=== PATIENT | male | born 1950 | race Caucasian/White ===

== ENCOUNTER 2017-04-09 19:49 | Emergency (ER) | payer MEDICARE, OTHER ==
[~2017-04-09] VITALS: Ht 180.3 cm; Wt 90.7 kg
[~2017-04-09 19:49] MED LIST: ASPI-999 PO; DIGO125T91 PO; DIGO250T15 PO; ERGO50006 PO; GABA-488 PO; HYDR-3812 PO; INSU100V16 SQ; INSU100V6 SC; LEVO25TA5 PO; LISI5TAB14 PO; METO-333 PO; NIAC10002 PO; OMEP20CA12 PO; OMG1KC PO; PANT40TA3 PO; PRAV10TA23 PO; RIVA20TA PO; TRAZ-28 PO
--- NOTE | 2017-04-09 20:49 | ED Lower Extremity ---
General Chief Complaint: Lower Extremity Stated Complaint: LT LEG PAIN HX OF BLOOD CLOTS Nursing Triage Note: PT CO OF L KNEE TO HIP PAIN STATES STARTED AT 1900 THIS EVENING, PT HAS HX OF BLOOD CLOTS Nursing Sepsis Screen: No Definite Risk Source: patient Exam Limitations: no limitations (NINFA YUSUF APRN) History of Present Illness Time seen by provider: 20:47 Initial Comments To ER with pain to the lateral aspect of left thigh from the hip to the knee. This began about 730 this evening when he was walking here to the hospital to visit friend. Upon walking until the hospital he developed this pain. Pain is worsened by movement. 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 He remains on xarelto Onset: just prior to arrival Severity: moderate Pain/Injury Location: left leg Modifying Factors: Worse With Movement (NINFA YUSUF APRN) Allergies and Home Medications Allergies Coded Allergies: morphine (Verified Allergy, Intermediate, SEVERE ITCHING, 08/15/15) peach (Unverified Allergy, Unknown, 08/14/15) Uncoded Allergies: contrex (Allergy, Unknown, 08/14/15) Home Medications Aspirin 81 Mg Tab.chew, 81 MG PO DAILY, #30 Prescribed by: TIMOTHY VOGT on 08/30/15 1655 Digoxin 250 Mcg Tablet, 0.25 MG PO HS, #30 Prescribed by: TIMOTHY VOGT on 08/30/15 1655 Ergocalciferol (Vitamin D2) 50,000 Unit Capsule, 50,000 UNITS PO We@09, #30 Prescribed by: TIMOTHY VOGT on 08/30/15 165 Gabapentin 300 Mg Capsule, 600 MG PO TID, (Reported) Insulin Aspart 100 Unit/1 Ml Susp, 0 UNIT SQ, (Reported) Insulin Glargine,Hum.rec.anlog 100 Unit/1 Ml Vial, 30 UNIT SC BID, (Reported) Levothyroxine Sodium 25 Mcg Tablet, 25 MCG PO DAILY@0630, #30 Prescribed by: TIMOTHY VOGT on 08/30/15 1655 Lisinopril 5 Mg Tablet, 5 MG PO DAILY, (Reported) Metoprolol Tartrate 25 Mg Tablet, 25 MG PO BID, #30 Prescribed by: TIMOTHY VOGT on 12/10/15 1655 [place] 3 Polyunsat Fatty Acids 1,000 Mg Cap, 1,000 MG PO HS, #30 Prescribed by: TIMOTHY VOGT on 08/30/151654 [place] 3 Polyunsat Fatty Acids 1,000 Mg Cap, 2,000 MG PO DAILY, #60 Prescribed by: TIMOTHY VOGT on 08/30/151654 Omeprazole 20 Mg Capsule.dr, 20 MG PO BID, (Reported) Pravastatin Sodium 10 Mg Tablet, 10 MG PO, (Reported) Rivaroxaban 20 Mg Tablet, 20 MG PO DAILY@1700, #30 Prescribed by: TIMOTHY VOGT on 08/30/151654 Trazodone HCl 50 Mg Tablet, 50 MG PO HS, #30 Prescribed by: TIMOTHY VOGT on 08/30/151654 Constitutional: see HPI EENTM: see HPI Respiratory: no symptoms reported Cardiovascular: no symptoms reported Genitourinary: no symptoms reported Musculoskeletal: see HPI Skin: no symptoms reported Psychiatric/Neurological: No Symptoms Reported (NINFA YUSUF APRN) Past Gxyhrfe-Kpxqwn-Wowqcy Hx Patient Social History Alcohol Use: Denies Use Recreational Drug Use: No Smoking Status: Current Someday Smoker Type Used: Cigarettes Recent Foreign Travel: No Contact w/Someone Who Travel: No Recent Infectious Disease Expo: No Recent Hopitalizations: Yes (NINFA YUSUF APRN) Immunizations Up To Date Tetanus Booster (TDap): Unknown Date of Pneumonia Vaccine: Aug 30, 2015 Date of Influenza Vaccine: Jul 27, 2015 (NINFA YUSUF APRN) Seasonal Allergies Seasonal Allergies: No (NINFA YUSUF APRN) Surgeries HX Surgeries: Yes Surgeries: Cardiac, CABG, Coronary Stent, Open Heart Surgery, Vascular Surgery (NINFA YUSUF APRN) Respiratory Hx Respiratory Disorders: Yes Respiratory Disorders: COPD, Emphysema (NINFA YUSUF APRN) Cardiovascular Hx Cardiac Disorders: Yes Cardiac Disorders: Coronary Artery Disease, Heart Attack, High Cholesterol, Hypertension, Peripheral Vascular (NINFA YUSUF APRN) Neurological Hx Neurological Disorders: Yes Neurological Disorders: Neuropathy (NINFA YUSUF APRN) Reproductive System Hx Reproductive Disorders: No Sexually Transmitted Disease: No HIV/AIDS: No (NINFA YUSUF APRN) Genitourinary Hx Genitourinary Disorders: No (NINFA YUSUF APRN) Gastrointestinal Hx Gastrointestinal Disorders: Yes Gastrointestinal Disorders: Gastrointestinal Bleed (NINFA YUSUF APRN) Musculoskeletal Hx Musculoskeletal Disorders: Yes Musculoskeletal Disorders: Arthritis, Chronic Back Pain (NINFA YUSUF APRN) Endocrine Hx Endocrine Disorders: Yes Endocrine Disorders: Diabetes, Insulin dep (NINFA YUSUF APRN) HEENT HX ENT Disorders: Yes HEENT Disorders: Glaucoma Loss of Vision: Denies Hearing Impairment: Denies (NINFA YUSUF APRN) Cancer Hx Cancer: No (NINFA YUSUF APRN) Psychosocial Hx Psychiatric Problems: No (NINFA YUSUF APRN) Integumentary HX Skin/Integumentary Disorder: No (NINFA YUSUF APRN) Blood Transfusions Hx Blood Disorders: No Adverse Reaction to a Blood Tr: No (NINFA YUSUF APRN) Family Medical History Family Medial History: Cardiovascular disease 19 FATHER Deafness or hearing loss 19 FATHER Dementia 19 FATHER, Onset:Unknown (NINFA YUSUF APRN) Family Medial History: Cardiovascular disease 19 FATHER Deafness or hearing loss 19 FATHER Dementia 19 FATHER, Onset:Unknown (SUSHMA MAYERS) Physical Exam Vital Signs Vital Sign - Last 12Hours 04/09/17 20:00 Temp 99.0 Pulse 97 Resp 18 B/P (MAP) 146/82 Pulse Ox 98 (SUSHMA MAYERS) Vital Signs Capillary Refill : Less Than 3 Seconds (NINFA YUSUF APRN) General Appearance: WD/WN, no apparent distress HEENT: PERRL/EOMI, normal ENT inspection Neck: non-tender, full range of motion Respiratory: no respiratory distress, no accessory muscle use Gastrointestinal: normal bowel sounds, non tender, soft Hips: bilateral hip non-tender, bilateral hip normal inspection, bilateral hip normal range of motion Legs: left leg pain, left leg soft tissue tenderness, left leg other (there is no swelling or ecchymosis. There is no palpable pulse in either lower extremity in the posterior tibial regions, however, there is a warm foot bilaterally with capillary refill.) Knees: bilateral knee non-tender, bilateral knee normal inspection, bilateral knee normal range of motion Ankles: bilateral ankle non-tender, bilateral ankle normal inspection, bilateral ankle normal range of motion Neurologic/Psychiatric: alert, normal mood/affect, oriented x 3 Skin: normal color, warm/dry (NINFA YUSUF APRN) Progress/Results/Core Measures Results/Orders Lab Results Laboratory Tests Test 04/09/17 21:20 Range/Units White Blood Count 8.0 4.3-11.0 10^3/uL Red Blood Count 4.11 L 4.35-5.85 10^6/uL Hemoglobin 8.7 L 13.3-17.7 G/DL Hematocrit 31 L 40-54 % Mean Corpuscular Volume 75 L 80-99 FL Mean Corpuscular Hemoglobin 21 L 25-34 PG Mean Corpuscular Hemoglobin Concent 28 L 32-36 G/DL Red Cell Distribution Width 18.4 H 10.0-14.5 % Platelet Count 172 130-400 10^3/uL Mean Platelet Volume 7.4-10.4 FL Neutrophils (%) (Auto) 73 42-75 % Lymphocytes (%) (Auto) 18 12-44 % Monocytes (%) (Auto) 7 0-12 % Eosinophils (%) (Auto) 1 0-10 % Basophils (%) (Auto) 0 0-10 % Neutrophils # (Auto) 5.8 1.8-7.8 X 10^3 Lymphocytes # (Auto) 1.5 1.0-4.0 X 10^3 Monocytes # (Auto) 0.6 0.0-1.0 X 10^3 Eosinophils # (Auto) 0.1 0.0-0.3 10^3/uL Basophils # (Auto) 0.0 0.0-0.1 10^3/uL Prothrombin Time 27.5 H 12.2-14.7 SEC INR Comment 2.6 H 0.8-1.4 Activated Partial Thromboplast Time 39 H 24-35 SEC Sodium Level 138 135-145 MMOL/L Potassium Level 4.9 3.6-5.0 MMOL/L Chloride Level 110 H 98-107 MMOL/L Carbon Dioxide Level 18 L 21-32 MMOL/L Anion Gap 10 5-14 MMOL/L Blood Urea Nitrogen 17 7-18 MG/DL Creatinine 1.65 H 0.60-1.30 MG/DL Estimat Glomerular Filtration Rate 42 BUN/Creatinine Ratio 10 Glucose Level 151 H 70-105 MG/DL Calcium Level 9.2 8.5-10.1 MG/DL (SUSHMA MAYERS) My Orders Orders - SUSHMA MAYERS Fentanyl Injection (Sublimaze Injection (04/09/17 23:30) Heparin Drip [id number] Unit/500ml (Heparin (04/09/17 23:42) Heparin (Bolus Per Protocol) (Heparin (B (04/09/17 23:45) Protime With Inr (04/09/17 23:42) Partial Thromboplastin Time (04/09/17 23:42) Fentanyl Injection (Sublimaze Injection (04/10/17 00:30) (SUSHMA MAYERS) Medications Given in ED Current Medications Medications Dose Ordered Sig/Radha Route Start Time Stop Time Status Last Admin Dose Admin Fentanyl Citrate 50 mcg ONCE ONCE IVP 04/09/17 20:45 04/09/17 20:47 DC 04/09/17 21:20 50 MCG Fentanyl Citrate 50 mcg ONCE ONCE IVP 04/09/17 23:30 04/09/17 23:32 DC 04/09/17 23:27 50 MCG Fentanyl Citrate 50 mcg ONCE ONCE IVP 04/10/17 00:30 04/10/17 00:32 DC 04/10/17 00:20 50 MCG Heparin Sodium (Porcine) HEPARIN FULL PROTOC... ONCE ONCE IV 04/09/17 23:45 04/09/17 23:46 DC 04/10/17 00:01 5,000 UNIT Heparin Sodium/ Dextrose 500 ml @ 0 mls/hr Q0M ONCE IV 04/09/17 23:42 04/09/17 23:44 DC 04/10/17 00:02 24 MLS/HR (SUSHMA MAYERS) Vital Signs/I&O Vital Sign - Last 12Hours 04/09/17 04/10/17 20:00 00:03 Temp 99.0 Pulse 97 86 Resp 18 18 B/P (MAP) 146/82 Pulse Ox 98 96 (SUHSMA MAYESR) Blood Pressure Mean: 103 Diagnostic Imaging Diagonstic Imaging: Ultrasound Plain Films/CT/US/NM/MRI: other (arterial leg) Comments Left lower extremity ultrasound arterial Iliofemoral bypasses occluded. Femoral artery stent is occluded. Monophasic flow within the profunda femoral artery, popliteal artery and posterior tibial artery. No fluid seen within the peroneal artery. Reviewed: Reviewed Night [facility] Study, Reviewed by Me (SUSHMA MAYERS) Consults Consults : Consults Notes Spoke with Dr. Souza at [facility] who is covering for Dr. Tyson to the cardiovascular surgeon who is known to the patient. He recommends we ER to ER transfer and get a ultrasound done that [place] and then have them call him with results. He recommends heparinizing the patient. (SUSHMA MAYERS) Transfer of Care Transfer of Care Time: 23:32 Care transferred to: Ann-Marie (SUSHMA MAYERS) Departure Communication Progress Notes 2255-care turned over to dr mayers. US results pending. (NINFA YUSUF APRN) Impression Impression: Primary Impression: Femoral artery occlusion, left Disposition: 02 XFER SHT-TRM HOSP (ER to ER transfer Александр in [facility] ) Condition: Stable Transfer Transfer Notes Dr. Salgado in the ER is accepting physician. I spoke with him and gave the history of present illness as well as Dr. Souza's plan to get a arterial duplex and call him with the results. He is more than willing to see him. Transfer Time: 23:41 Transfer Facility: [facility] Method of Transfer: EMS (SUSHMA MAYERS) Departure-Patient Inst. Referrals: NO,LOCAL PHYSICIAN (PCP/Family) Primary Care Physician NINFA YUSUF APRN Apr 09, 2017 20:49 SUSHMA MAYERS Apr 09, 2017 23:36
[2017-04-09] MEDS: fentaNYL INJECTION 100 MCG/2 ML AMP IVP ONE ×2 (21:20→23:27)
[2017-04-09 21:30] LABS: BASOPHILS % (AUTO) 0 % (0-10); EOSINOPHILS # (AUTO) 0.1 10^3/uL (0.0-0.3); EOSINOPHILS % (AUTO) 1 % (0-10); LYMPHOCYTES # (AUTO) 1.5 X 10^3 (1.0-4.0); LYMPHOCYTES % (AUTO) 18 % (12-44); MEAN CORPUSCULAR HEMOGLOBIN 21 PG (25-34); MEAN CORPUSCULAR HGB CONC 28 G/DL (32-36); MEAN CORPUSCULAR VOLUME 75 FL (80-99); MONOCYTES # (AUTO) 0.6 X 10^3 (0.0-1.0); MONOCYTES % (AUTO) 7 % (0-12); NEUTROPHILS # (AUTO) 5.8 X 10^3 (1.8-7.8); NEUTROPHILS % (AUTO) 73 % (42-75); PLATELET COUNT 172 10^3/uL (130-400); RED BLOOD COUNT 4.11 10^6/uL (4.35-5.85); RED CELL DISTRIBUTION WIDTH 18.4 % (10.0-14.5)
[2017-04-09 21:46] LABS: CALCIUM 9.2 MG/DL (8.5-10.1); CREATININE SERUM 1.65 MG/DL (0.60-1.30); POTASSIUM 4.9 MMOL/L (3.6-5.0)
[2017-04-09] MEDS: fentaNYL INJECTION 100 MCG/2 ML AMP ONE (23:46)
[2017-04-10] MEDS: HEParin 1000 UNIT/ML (10ML VIAL) FOR BOLUS IV ONE (00:01)
[2017-04-10] MEDS: HEParin DRIP 25000 UNIT/500ML 500 ML IV ONE (00:02)
[2017-04-10 00:03] VITALS: BP 128/76
[2017-04-10 00:04] LABS: INR 2.6 (0.8-1.4); PROTHROMBIN TIME PATIENT 27.5 SEC (12.2-14.7)
[2017-04-10] MEDS: fentaNYL INJECTION 100 MCG/2 ML AMP IVP ONE (00:20)
--- NOTE | 2017-04-10 07:41 | Diagnostic Imaging Report ---
Left lower extremity arterial vascular ultrasound. INDICATION: Sudden onset left leg pain. History of prior bypass surgery and stent placement. FINDINGS: There is an iliofemoral bypass graft which appears occluded. There is a stent within the mid/ distal SFA which is completely occluded. The proximal SFA appears to be occluded. There is flow in the popliteal artery with monophasic diminished velocity of 20 cm per second. The profunda femoris also demonstrates diminished monophasic flow velocity of 35 cm per second. The tibioperoneal trunk is patent with velocity of 52 cm per second with monophasic flow. The posterior tibial artery has monophasic diminished flow velocity of about 10 cm per second. The dorsalis pedis demonstrates no flow. IMPRESSION: There is complete occlusion of the iliofemoral bypass and the SFA on the left side with diminished monophasic flow seen distally and no flow seen in the dorsalis pedis. This reading agrees with the [facility] report. Dictated by: Dictated on workstation # [id number]
== END 2017-04-10 00:17 | disposition short-term general hospital (02) ==
LOC: EDUNIT# 19:49 → ER 19:51
DX: I74.3 Embolism and thrombosis of arteries of the lower extremities (principal); E11.9 Type 2 diabetes mellitus without complications; I25.2 Old myocardial infarction; I25.10 Atherosclerotic heart disease of native coronary artery without angina pectoris; E78.00 Pure hypercholesterolemia, unspecified; I10 Essential (primary) hypertension; J43.9 Emphysema, unspecified; Z95.5 Presence of coronary angioplasty implant and graft; Z95.1 Presence of aortocoronary bypass graft; Z98.890 Other specified postprocedural states; Z79.01 Long term (current) use of anticoagulants; Z79.82 Long term (current) use of aspirin; Z79.4 Long term (current) use of insulin
CPT/HCPCS: 36415; 80048; 85025; 85610; 85730; 93926

== ENCOUNTER 2017-10-23 19:45 | Inpatient (IN) | payer MEDICARE, OTHER ==
[~2017-10-23] VITALS: Ht 182.9 cm; Wt 93.4 kg
[~2017-10-23 19:45] MED LIST changes: +ACHD5005 PO; -HYDR-3812 PO
[2017-10-23] MEDS ORDERED: RT-ALBUTEROL/IPRATROPIUM 3 ML (DUONEB) VIAL INH ONE (20:45)
--- NOTE | 2017-10-23 20:47 | ED Cough/URI ---
General Chief Complaint: Respiratory Problems Stated Complaint: SOB/COUGH Nursing Triage Note: PATIENT STATES HE HAS BEEN SOB FOR 2-3 DAYS. HE BELIEVES HE HAS PNEUMONIA. HE HAS HX OF COPD, AFIB/AFLUTTER. Source: patient Exam Limitations: no limitations History of Present Illness Date Seen by Provider: Oct 23, 2017 Time Seen by Provider: 20:45 Initial Comments To ER with reports of shortness of breath for 3 days. He believes he might have pneumonia. Has COPD, A. fib/A flutter. [facility]uled to have [facility] again next Thursday the . He is on xarelto. History of CABG and aortobifemoral bypass Timing/Duration: constant Severity/Quality: moderate Associated Symptoms: cough, shortness of breath, wheezing Allergies and Home Medications Allergies Coded Allergies: morphine (Verified Allergy, Intermediate, SEVERE ITCHING, 08/15/15) peach (Unverified Allergy, Unknown, 08/14/15) Uncoded Allergies: contrex (Allergy, Unknown, 08/14/15) Home Medications Aspirin 81 Mg Tab.chew, 81 MG PO DAILY, #30 Prescribed by: TIMOTHY VOGT on 08/30/15 1655 Digoxin 250 Mcg Tablet, 0.25 MG PO HS, #30 Prescribed by: TIMOTHY VOGT on 08/30/15 1655 Ergocalciferol (Vitamin D2) 50,000 Unit Capsule, 50,000 UNITS PO We@09, #30 Prescribed by: TIMOTHY VOGT on 08/30/15 1655 Gabapentin 300 Mg Capsule, 600 MG PO TID, (Reported) Insulin Aspart 100 Unit/1 Ml Susp, 0 UNIT SQ, (Reported) Insulin Glargine,Hum.rec.anlog 100 Unit/1 Ml Vial, 30 UNIT SC BID, (Reported) Levothyroxine Sodium 25 Mcg Tablet, 25 MCG PO DAILY@0630, #30 Prescribed by: TIMOTHY VOGT on 08/30/15 1655 Lisinopril 5 Mg Tablet, 5 MG PO DAILY, (Reported) Metoprolol Tartrate 25 Mg Tablet, 25 MG PO BID, #30 Prescribed by: TIMOTHY VOGT on 08/30/15 1655 [place] 3 Polyunsat Fatty Acids 1,000 Mg Cap, 1,000 MG PO HS, #30 Prescribed by: TIMOTHY VOGT on 08/30/15 1655 [place] 3 Polyunsat Fatty Acids 1,000 Mg Cap, 2,000 MG PO DAILY, #60 Prescribed by: TIMOTHY VOGT on 08/30/151654 Omeprazole 20 Mg Capsule.dr, 20 MG PO BID, (Reported) Pravastatin Sodium 10 Mg Tablet, 10 MG PO, (Reported) Rivaroxaban 20 Mg Tablet, 20 MG PO DAILY@1700, #30 Prescribed by: TIMOTHY VOGT on 08/30/151654 Trazodone HCl 50 Mg Tablet, 50 MG PO HS, #30 Prescribed by: TIMOTHY VOGT on 08/30/155 Constitutional: see HPI, chills, No fever EENTM: see HPI Respiratory: see HPI, dyspnea on exertion Cardiovascular: no symptoms reported Genitourinary: no symptoms reported Musculoskeletal: no symptoms reported Skin: no symptoms reported Past Akthpkq-Zlijke-Hdyowp Hx Patient Social History Alcohol Use: Denies Use Recreational Drug Use: No Smoking Status: Current Everyday Smoker Type Used: Cigarettes 2nd Hand Smoke Exposure: Yes Recent Foreign Travel: No Contact w/Someone Who Travel: No Recent Infectious Disease Expo: No Recent Hopitalizations: Yes Immunizations Up To Date Tetanus Booster (TDap): Unknown Date of Pneumonia Vaccine: Aug 30, 2015 Date of Influenza Vaccine: Jul 27, 2015 Seasonal Allergies Seasonal Allergies: No Surgeries History of Surgeries: Yes Surgeries: Cardiac, CABG, Coronary Stent, Open Heart Surgery, Vascular Surgery Respiratory History of Respiratory Disorde: Yes Respiratory Disorders: COPD, Emphysema Currently Using CPAP: Yes Currently Using BIPAP: No Cardiovascular History of Cardiac Disorders: Yes Cardiac Disorders: Coronary Artery Disease, Heart Attack, High Cholesterol, Hypertension, Peripheral Vascular Neurological History of Neurological Disord: Yes Neurological Disorders: Neuropathy Reproductive System Hx Reproductive Disorders: No Sexually Transmitted Disease: No HIV/AIDS: No Gastrointestinal History of Gastrointestinal Di: Yes Gastrointestinal Disorders: Gastrointestinal Bleed Musculoskeletal History of Musculoskeletal Dis: Yes Musculoskeletal Disorders: Arthritis, Chronic Back Pain Endocrine History of Endocrine Disorders: Yes Endocrine Disorders: Diabetes, Insulin dep HEENT HEENT Disorders: Glaucoma Loss of Vision: Denies Hearing Impairment: Denies Cancer History of Cancer: No Psychosocial History of Psychiatric Problem: No Integumentary History of Skin or Integumenta: No Blood Transfusions History of Blood Disorders: No Adverse Reaction to a Blood Tr: No Family Medical History Family Medial History: Cardiovascular disease 19 FATHER Deafness or hearing loss 19 FATHER Dementia 19 FATHER, Onset:Unknown Physical Exam Vital Signs Vital Sign - Last 12Hours 10/23/17 10/23/17 20:26 22:25 Temp 97.6 Pulse 105 Resp 26 B/P (MAP) 136/78 (97) Pulse Ox 94 O2 Delivery Room Air O2 Flow Rate 40.00 Capillary Refill : Less Than 3 Seconds General Appearance: WD/WN, moderate distress Eyes: Bilateral Eye Normal Inspection, Bilateral Eye PERRL HEENT: PERRL/EOMI, normal ENT inspection Neck: non-tender, full range of motion Respiratory: decreased breath sounds, wheezing, other (tachypneic) Cardiovascular: other (tachycardic rate 115 A flutter left bundle branch block) Gastrointestinal: normal bowel sounds, non tender, soft Neurologic/Psychiatric: alert, normal mood/affect, oriented x 3 Skin: normal color, warm/dry Progress/Results/Core Measures Suspected Sepsis Recent Fever Within 48 Hours: No Infection Criteria Present: Suspected New Infection New/Unexplained Altered Menta: No Sepsis Screen: Possible Sepsis Risk Sepsis Diagnosis: SIRS Temperature:97.6 Pulse: 105 Respiratory Rate: 26 Laboratory Tests 10/23/17 20:54: White Blood Count 12.0H Blood Pressure 136 /78 Mean: 97 Laboratory Tests 10/23/17 20:54: Creatinine 1.90H, Platelet Count 106L, Total Bilirubin 0.5 Results/Orders Lab Results Laboratory Tests Test 10/23/17 20:54 10/23/17 22:15 Range/Units White Blood Count 12.0 H 4.3-11.0 10^3/uL Red Blood Count 5.43 4.35-5.85 10^6/uL Hemoglobin 16.1 13.3-17.7 G/DL Hematocrit 49 40-54 % Mean Corpuscular Volume 91 80-99 FL Mean Corpuscular Hemoglobin 30 25-34 PG Mean Corpuscular Hemoglobin Concent 33 32-36 G/DL Red Cell Distribution Width 18.7 H 10.0-14.5 % Platelet Count 106 L 130-400 10^3/uL Mean Platelet Volume 7.4-10.4 FL Neutrophils (%) (Auto) 86 H 42-75 % Lymphocytes (%) (Auto) 7 L 12-44 % Monocytes (%) (Auto) 7 0-12 % Eosinophils (%) (Auto) 0 0-10 % Basophils (%) (Auto) 0 0-10 % Neutrophils # (Auto) 10.2 H 1.8-7.8 X 10^3 Lymphocytes # (Auto) 0.9 L 1.0-4.0 X 10^3 Monocytes # (Auto) 0.8 0.0-1.0 X 10^3 Eosinophils # (Auto) 0.0 0.0-0.3 10^3/uL Basophils # (Auto) 0.0 0.0-0.1 10^3/uL Neutrophils % (Manual) 73 % Lymphocytes % (Manual) 9 % Monocytes % (Manual) 4 % Eosinophils % (Manual) 0 % Basophils % (Manual) 0 % Band Neutrophils 14 % Blood Morphology Comment NORMAL Sodium Level 136 135-145 MMOL/L Potassium Level 4.9 3.6-5.0 MMOL/L Chloride Level 104 98-107 MMOL/L Carbon Dioxide Level 19 L 21-32 MMOL/L Anion Gap 13 5-14 MMOL/L Blood Urea Nitrogen 36 H 7-18 MG/DL Creatinine 1.90 H 0.60-1.30 MG/DL Estimat Glomerular Filtration Rate 36 BUN/Creatinine Ratio 19 Glucose Level 168 H 70-105 MG/DL Calcium Level 9.6 8.5-10.1 MG/DL Total Bilirubin 0.5 0.1-1.0 MG/DL Aspartate Amino Transf (AST/SGOT) 33 5-34 U/L Alanine Aminotransferase (ALT/SGPT) 30 0-55 U/L Alkaline Phosphatase 45 40-136 U/L Troponin I < 0.30 <0.30 NG/ML B-Type Natriuretic Peptide 104.1 H <100.0 PG/ML Total Protein 7.9 6.4-8.2 GM/DL Albumin 4.0 3.2-4.5 GM/DL Digoxin Level < 0.30 L 0.80-2.00 NG/ML Blood Gas Puncture Site LEFT RADIAL Blood Gas Patient Temperature 101.8 Arterial Blood pH 7.37 7.37-7.43 Arterial Blood Partial Pressure CO2 31 L 35-45 MMHG Arterial Blood Partial Pressure O2 123 H 79-93 MMHG Arterial Blood HCO3 17 *L 23-27 MMOL/L Arterial Blood Total CO2 17.8 L 21.0-31.0 MMOL/L Arterial Blood Oxygen Saturation 99 94-100 % Arterial Blood Base Excess -7.1 L -2.5-2.5 MMOL/L Rashi Test POSITIVE Blood Gas Ventilator Setting NO Blood Gas Inspired Oxygen 40% BIPAP Micro Results Microbiology 10/23/17 Influenza Types A,B Antigen (JOHNNY) - Final, Complete My Orders Orders - NINFA YUSUF APRN Cbc With Automated Diff (10/23/17 20:32) BNP (10/23/17 20:32) Comprehensive Metabolic Panel (10/23/17 20:32) Ekg Tracing (10/23/17 20:32) Troponin I (10/23/17 20:32) Influenza A And B Antigens (10/23/17 20:32) Albuterol/Ipra Inhalation Soln (Duoneb I (10/23/17 20:45) Svn Sm Volume Nebulizer Rt-Rfs (10/23/17 20:44) Digoxin (10/23/17 20:49) Manual Differential (10/23/17 20:54) Chest 1 View, Ap/Pa Only (10/23/17 21:09) Methylprednisolone Sod Succ (Solu-Medrol (10/23/17 21:15) Ns Iv 500 Ml (Sodium Chloride 0.9%) (10/23/17 21:45) Saline Lock/Iv-Start (10/23/17 21:46) Diltiazem Injection (Cardizem Injection) (10/23/17 22:00) D5w 100 Ml Ivpb (De... W/Diltiazem Iv Fo (10/23/17 22:00) Acetaminophen Tablet (Tylenol Tablet) (10/23/17 22:00) Acetaminophen Tablet (Tylenol Tablet) (10/23/17 21:54) Blood Culture (10/23/17 21:57) Lactic Acid Analyzer (10/23/17 21:57) Bipap Rt-Rfs (10/23/17 21:57) Albuterol Pre-Mix Nebs (Rt) (Proventil (10/23/17 22:00) Svn Sm Volume Nebulizer Rt-Rfs (10/23/17 21:57) Piperacillin Sodium/Tazobactam (Zosyn Vi (10/23/17 22:00) Arterial Blood Gas (10/23/17 22:17) Medications Given in ED Current Medications Medications Dose Ordered Sig/Radha Route Start Time Stop Time Status Last Admin Dose Admin Acetaminophen 500 mg ONCE ONCE PO 10/23/17 22:00 10/23/17 22:01 DC 10/23/17 21:57 500 MG Diltiazem HCl 10 mg ONCE ONCE IVP 10/23/17 22:00 10/23/17 22:01 DC 10/23/17 22:09 10 MG Methylprednisolone Sodium Succinate 125 mg ONCE ONCE IVP 10/23/17 21:15 10/23/17 21:16 DC 10/23/17 21:20 125 MG Vital Signs/I&O Vital Sign - Last 12Hours 10/23/17 10/23/17 10/23/17 10/23/17 20:26 21:27 21:57 22:15 Temp 97.6 101.5 Pulse 105 122 Resp 26 B/P (MAP) 136/78 (97) 120/78 Pulse Ox 94 94 O2 Delivery Room Air Room Air 10/23/17 22:25 Pulse 124 Resp 25 Pulse Ox 96 O2 Flow Rate 40.00 Capillary Refill : Less Than 3 Seconds Blood Pressure Mean: 97 Departure Communication (Admissions) Time/Spoke to Admitting Phy: 22:05 Communication I discussed the case with Dr. Brito. We will admit the patient, consult Dr. Mas and Dr. Lockett in the morning. Time/Spoke to Consulting Phy: 22:08 Communication/Consulting Dr mas will consult, echo in am. Progress Notes 2154-temperature up to 101.5, heart rate up to 135 atrial fibrillation, blood pressure adequate at 135 systolic. We will start him on a Cardizem drip, he is also become more tachypneic with persistent wheezing so we'll put him on BiPAP with an in-line breathing treatment. 2236- his work of breathing and tachypnea has improved significantly with Bipap. ABG is unimpressive. Heart rate remains 134 A. fib, blood pressure 129/ 76. His lactic acid is not back yet. I would be hesitant for any aggressive fluid resuscitation with his history of three-vessel CABG. I do question a left lower lobe infiltrate on chest x-ray. We'll give Zosyn for this pending further evaluation. Impression Impression: Primary Impression: Acute renal insufficiency Additional Impressions: COPD exacerbation Atrial fibrillation with rapid ventricular response Pneumonia Disposition: ADMITTED INPATIENT Condition: Stable Admissions Decision to Admit Reason: Admit from ER (General) Decision to Admit/Date: Oct 23, 2017 Time/Decision to Admit Time: 21:35 Departure-Patient Inst. Referrals: NO,LOCAL PHYSICIAN (PCP/Family) Primary Care Physician NINFA YUSUF APRN Oct 23, 2017 20:47
[2017-10-23 21:02] LABS: HEMOGLOBIN 16.1 G/DL (13.3-17.7); RED BLOOD COUNT 5.43 10^6/uL (4.35-5.85)
[2017-10-23 21:03] LABS: BASOPHILS % (AUTO) 0 % (0-10); EOSINOPHILS % (AUTO) 0 % (0-10); HEMATOCRIT 49 % (40-54); LYMPHOCYTES # (AUTO) 0.9 X 10^3 (1.0-4.0); LYMPHOCYTES % (AUTO) 7 % (12-44); MEAN CORPUSCULAR HEMOGLOBIN 30 PG (25-34); MEAN CORPUSCULAR HGB CONC 33 G/DL (32-36); MEAN CORPUSCULAR VOLUME 91 FL (80-99); MONOCYTES # (AUTO) 0.8 X 10^3 (0.0-1.0); MONOCYTES % (AUTO) 7 % (0-12); NEUTROPHILS # (AUTO) 10.2 X 10^3 (1.8-7.8); NEUTROPHILS % (AUTO) 86 % (42-75); PLATELET COUNT 106 10^3/uL (130-400); RED CELL DISTRIBUTION WIDTH 18.7 % (10.0-14.5)
[2017-10-23] MEDS ORDERED: methylPREDNISolone 125 MG (Solu-MEDROL) VIAL IVP ONE (21:15)
[2017-10-23 21:19] LABS: BAND NEUTROPHILS 14 %; BASOPHILS % (MANUAL) 0 %; EOSINOPHILS % (MANUAL) 0 %; LYMPHOCYTES % (MANUAL) 9 %; MONOCYTES % (MANUAL) 4 %; NEUTROPHILS % (MANUAL) 73 %; RBC MORPH NORMAL
[2017-10-23 21:23] LABS: ALANINE AMINOTRANSFERASE 30 U/L (0-55); ALKALINE PHOSPHATASE 45 U/L (40-136); BILIRUBIN,TOTAL 0.5 MG/DL (0.1-1.0); BUN/CREATININE RATIO 19; CALCIUM 9.6 MG/DL (8.5-10.1); CARBON DIOXIDE 19 MMOL/L (21-32); CHLORIDE 104 MMOL/L (98-107); GFR ESTIMATED 36; GLUCOSE 168 MG/DL (70-105); POTASSIUM 4.9 MMOL/L (3.6-5.0); SODIUM 136 MMOL/L (135-145); TOTAL PROTEIN 7.9 GM/DL (6.4-8.2)
[2017-10-23 21:30] LABS: DIGOXIN < 0.30 NG/ML (0.80-2.00)
[2017-10-23] MEDS ORDERED: NS IV 500 ML 500 ML IV SCH (21:45)
[2017-10-23] MEDS ORDERED: ACETAMINOPHEN 500 MG TAB (TYLENOL) ONE (21:54)
--- NOTE | 2017-10-23 21:55 | Diagnostic Imaging Report ---
INDICATION: Dyspnea for 3 days Portable upright AP view of the chest is obtained. There is no previous study for comparison. There are postoperative changes in the mediastinum related to coronary artery bypass. Prominent interstitial markings are seen throughout the lungs with mild increased density in the lingula causing partial obscuration of the left heart border. IMPRESSION: Interstitial markings could be related to edema or pneumonitis versus chronic fibrosis. Density is greatest in the lingula. If older studies are available, comparison would be useful. Otherwise, consideration should be given to short-term followup study. Dictated by: Dictated on workstation # [id number]
[2017-10-23] MEDS ORDERED: DILTIAZEM 25 MG/5 ML INJ (CARDIZEM) VIAL IVP ONE (22:00)
[2017-10-23] MEDS ORDERED: ACETAMINOPHEN 500 MG TAB (TYLENOL) PO ONE (22:00)
[2017-10-23] MEDS ORDERED: RT-ALBUTEROL SULF 2.5 MG/3 ML PRE-MIX VIAL INH SCH (22:00)
[2017-10-23] MEDS ORDERED: PIPERACILLIN SODIUM/TAZOBACTAM 4.5 GM in D5W 100 ML IVPB 100 ML IV ONE (22:00)
[2017-10-23] MEDS: DILTIAZEM IV FOR DRIP 125 MG in D5W 100 ML IVPB 100 ML IV SCH (22:15)
[2017-10-23 22:21] LABS: ABG BASE EXCESS -7.1 MMOL/L (-2.5-2.5); ABG OXYGEN SATURATION 99 % (94-100); ABG PCO2 31 MMHG (35-45); ABG PH 7.37 (7.37-7.43); ABG PO2 123 MMHG (79-93); ABG TCO2 17.8 MMOL/L (21.0-31.0)
[2017-10-23 22:23] LABS: ALLENS TEST POSITIVE; INSPIRED O2 40% BIPAP; PATIENT TEMP 101.8; VENTILATOR NO
[2017-10-23 22:25] VITALS: BP 119/77
[2017-10-23 23:15] VITALS: BP 131/80
[2017-10-23] MEDS ORDERED: ACETAMINOPHEN 325 MG TABLET/CAPLET (TYLENOL) PO PRN (23:45)
[2017-10-23] MEDS ORDERED: NS IV 1000 ML 1,000 ML ONE (23:47)
[2017-10-23] MEDS: NS IV 1000 ML 1,000 ML IV SCH (23:49)
[2017-10-24] VITALS (31 sets, daily range): BP systolic 93–151; BP diastolic 41–89
[2017-10-24] MEDS ORDERED: traZODone 50 MG (DESYREL) TAB PO ONE (00:15)
[2017-10-24] MEDS: RT-ALBUTEROL/IPRATROPIUM 3 ML (DUONEB) VIAL INH SCH ×6 (02:19→21:56)
[2017-10-24] MEDS: PIPERACILLIN/TAZOBACTAM 4.5 GM/D5W 100 ML IVPB IV SCH ×6 (04:01→21:07)
[2017-10-24 05:09] LABS: BASOPHILS % (AUTO) 0 % (0-10); EOSINOPHILS % (AUTO) 0 % (0-10); HEMATOCRIT 42 % (40-54); HEMOGLOBIN 13.9 G/DL (13.3-17.7); LYMPHOCYTES # (AUTO) 0.3 X 10^3 (1.0-4.0); LYMPHOCYTES % (AUTO) 5 % (12-44); MEAN CORPUSCULAR HEMOGLOBIN 30 PG (25-34); MEAN CORPUSCULAR HGB CONC 33 G/DL (32-36); MEAN CORPUSCULAR VOLUME 91 FL (80-99); MONOCYTES # (AUTO) 0.2 X 10^3 (0.0-1.0); MONOCYTES % (AUTO) 2 % (0-12); NEUTROPHILS # (AUTO) 7.1 X 10^3 (1.8-7.8); NEUTROPHILS % (AUTO) 93 % (42-75); PLATELET COUNT 81 10^3/uL (130-400); RED BLOOD COUNT 4.62 10^6/uL (4.35-5.85); RED CELL DISTRIBUTION WIDTH 18.5 % (10.0-14.5); WHITE BLOOD COUNT 7.6 10^3/uL (4.3-11.0)
[2017-10-24 05:40] LABS: CALCIUM 8.6 MG/DL (8.5-10.1); CREATININE SERUM 1.77 MG/DL (0.60-1.30); PHOSPHORUS 4.7 MG/DL (2.3-4.7); POTASSIUM 4.7 MMOL/L (3.6-5.0)
--- NOTE | 2017-10-24 05:54 | Pulmonary Consultation ---
History of Present Illness History of Present Illness Date of Consultation 10/24/17 05:49 Time Seen by Provider: 05:49 Date of Admission History of Present Illness 67yo presented secondary to worsening SOB, and Afib RVR. He was admitted to ICU placed on BiPAP and Cardizem gtt. Allergies and Home Medications Allergies Coded Allergies: morphine (Verified Allergy, Intermediate, SEVERE ITCHING, 08/15/15) peach (Unverified Allergy, Unknown, 08/14/15) Uncoded Allergies: contrex (Allergy, Unknown, 08/14/15) Home Medications Aspirin 81 Mg Tab.chew, 81 MG PO DAILY, #30 Prescribed by: TIMOTHY VOGT on 08/30/15 165 Digoxin 250 Mcg Tablet, 0.25 MG PO HS, #30 Prescribed by: TIMOTHY VOGT on 08/30/15 165 Ergocalciferol (Vitamin D2) 50,000 Unit Capsule, 50,000 UNITS PO We@09, #30 Prescribed by: TIMOTHY VOGT on 08/30/15 165 Gabapentin 300 Mg Capsule, 600 MG PO TID, (Reported) Insulin Aspart 100 Unit/1 Ml Susp, 0 UNIT SQ, (Reported) Insulin Glargine,Hum.rec.anlog 100 Unit/1 Ml Vial, 30 UNIT SC BID, (Reported) Levothyroxine Sodium 25 Mcg Tablet, 25 MCG PO DAILY@0630, #30 Prescribed by: TIMOTHY VOGT on 08/30/15 165 Lisinopril 5 Mg Tablet, 5 MG PO DAILY, (Reported) Metoprolol Tartrate 25 Mg Tablet, 25 MG PO BID, #30 Prescribed by: TIMOTHY VOGT on 08/30/15 165 Stoddard 3 Polyunsat Fatty Acids 1,000 Mg Cap, 1,000 MG PO HS, #30 Prescribed by: TIMOTHY VOGT on 08/30/15 165 Stoddard 3 Polyunsat Fatty Acids 1,000 Mg Cap, 2,000 MG PO DAILY, #60 Prescribed by: TIMOTHY VOGT on 08/30/15 165 Omeprazole 20 Mg Capsule.dr, 20 MG PO BID, (Reported) Pravastatin Sodium 10 Mg Tablet, 10 MG PO, (Reported) Rivaroxaban 20 Mg Tablet, 20 MG PO DAILY@1700, #30 Prescribed by: TIMOTHY VOGT on 08/30/15 165 Trazodone HCl 50 Mg Tablet, 50 MG PO HS, #30 Prescribed by: TIMOTHY VOGT on 08/30/15 [id number] Past Wzvbacr-Xsdavz-Ekmhwr Hx Patient Social History Alcohol Use: Denies Use Recreational Drug Use: No Smoking Status: Current Everyday Smoker Type Used: Cigarettes 2nd Hand Smoke Exposure: Yes Recent Foreign Travel: No Contact w/Someone Who Travel: No Recent Infectious Disease Expo: No Recent Hopitalizations: Yes Immunizations Up To Date Tetanus Booster (TDap): Unknown Date of Pneumonia Vaccine: Aug 30, 2015 Date of Influenza Vaccine: Jul 27, 2015 Seasonal Allergies Seasonal Allergies: No Surgeries History of Surgeries: Yes (AORTIC FEM X2) Surgeries: Cardiac, CABG, Coronary Stent, Open Heart Surgery, Vascular Surgery Respiratory History of Respiratory Disorde: Yes Respiratory Disorders: COPD, Emphysema Currently Using CPAP: Yes Currently Using BIPAP: No Cardiovascular History of Cardiac Disorders: Yes Cardiac Disorders: Coronary Artery Disease, Heart Attack, High Cholesterol, Hypertension, Peripheral Vascular Neurological History of Neurological Disord: Yes Neurological Disorders: Neuropathy Reproductive System Hx Reproductive Disorders: No Sexually Transmitted Disease: No HIV/AIDS: No Genitourinary History of Genitourinary Disor: No Gastrointestinal History of Gastrointestinal Di: Yes Gastrointestinal Disorders: Martinez's Esophagus, Gastrointestinal Bleed, Hiatal Hernia Musculoskeletal History of Musculoskeletal Dis: Yes Musculoskeletal Disorders: Arthritis, Chronic Back Pain Endocrine History of Endocrine Disorders: Yes Endocrine Disorders: Diabetes, Insulin dep HEENT History of HEENT Disorders: Yes HEENT Disorders: Glaucoma Loss of Vision: Denies Hearing Impairment: Denies Cancer History of Cancer: No Psychosocial History of Psychiatric Problem: No Integumentary History of Skin or Integumenta: No Blood Transfusions History of Blood Disorders: No Adverse Reaction to a Blood Tr: No Family Medical History Family Medial History: Cardiovascular disease 19 FATHER Deafness or hearing loss 19 FATHER Dementia 19 FATHER, Onset:Unknown Review of Systems Time Seen by Provider: 06:01 Constitutional: Weakness, Malaise Eyes: No: Pain, Vision change, Conjunctivae inflammation, Eyelid inflammation, Other, Redness ENT: Nose congestion Respiratory: Cough, Dry, Shortness of breath, SOB with excertion Cardiovascular: Orthopnea Gastrointestinal: No: Nausea, Vomiting, Abdominal Pain, Diarrhea, Constipation , Melena, Hematochezia, Other Neurological: Weakness Exam Exam Vital Signs Date Time Temp Pulse Resp B/P (MAP) Pulse Ox O2 Delivery O2 Flow Rate FiO2 10/24/17 05:00 70 24 113/41 (65) 99 NIV Bilevel 30.00 10/24/17 04:28 62 16 94 30.00 10/24/17 04:00 69 24 122/47 (72) 93 NIV Bilevel 30.00 10/24/17 04:00 98.7 NIV Bilevel 30.00 10/24/17 03:00 77 35 93/50 (64) 98 NIV Bilevel 30.00 10/24/17 02:19 73 18 97 30.00 10/24/17 02:00 80 19 118/80 (93) 97 NIV Bilevel 30.00 10/24/17 01:30 127 95 36 10/24/17 01:00 83 10/24/17 01:00 81 119/77 (91) 96 NIV Bilevel 30.00 10/24/17 00:59 82 22 95 30.00 10/24/17 00:00 100.3 NIV Bilevel 30.00 10/24/17 00:00 96 26 114/69 (84) 96 NIV Bilevel 30.00 10/23/17 23:53 NIV Bilevel 30 10/23/17 23:15 127 21 97 30.00 10/23/17 22:25 124 25 96 40.00 10/23/17 22:15 122 120/78 10/23/17 21:57 101.5 10/23/17 21:27 94 Room Air 10/23/17 20:26 97.6 105 26 136/78 (97) 94 Room Air I & O 10/24/17 07:00 Intake Total 200 ml Balance 200 ml General Appearance: Moderate Distress HEENT: PERRL/EOMI, Normal ENT Inspection Neck: Full Range of Motion, Non Tender, Supple Respiratory: Chest Non Tender, No Accessory Muscle Use, No Respiratory Distress , Decreased Breath Sounds Cardiovascular: Regular Rate, Rhythm, No Edema, No Gallop Capillary Refill: Less Than 3 Seconds Gastrointestinal: normal bowel sounds, non tender, soft Extremity: Normal Capillary Refill, Normal Inspection Neurologic/Psychiatric: Alert, Oriented x3 Skin: Normal Color, Warm/Dry Lymphatic: No Adenopathy Results Lab Laboratory Tests 10/23/17 20:54 10/24/17 04:15 Assessment/Plan Assessment/Plan Acute respiratory failure -BiPAP COPDAE -SVNs -BiPAP PRN -Oxygen -Start solumedrol IV Q6 Afib RVR -Cardizem gtt -IVF -Cardiology following Acute renal failure -IVF -Monitor 255 Clinical Quality Measures DVT/VTE Risk/Contraindication: Risk Factor Score Per Nursin RFS Level Per Nursing on Admit: 4+=Very High NERY ALANIS DO Oct 24, 2017 05:54
[2017-10-24] MEDS ORDERED: ENOXAPARIN 100 MG/1 ML (LOVENOX) SYR SC SCH (06:00)
[2017-10-24] MEDS ORDERED: SODIUM BICARB 8.4% 50 MEQ/50 ML (ABBOTT) SYR IV ONE (06:00)
[2017-10-24] MEDS: MAGNESIUM 1 GM/100 ML IVPB 100 ML IV SCH (06:01)
[2017-10-24] MEDS: POTASSIUM CL 10MEQ/50ML IVPB 50 ML IV SCH (06:01)
[2017-10-24] MEDS: KCL 20 MEQ TAB (K-DUR) PO SCH (06:01)
[2017-10-24] MEDS: inSUlin (REGULAR) HUMAN 1 UNIT/0.01 ML (CHARGE PER UNIT) SC SCH ×4 (06:28→21:06)
--- NOTE | 2017-10-24 08:53 | Diagnostic Imaging Report ---
Portable erect AP chest at 516 hours. INDICATION: Respiratory distress, pneumonia. FINDINGS: The appearance of the chest has improved somewhat since 10/23/17 as the left lung base does seem better aerated. In particular, the abnormal density involving the lingula seen previously has diminished. The lungs are otherwise generally clear. There is no pleural effusion identified. The heart is stable in size. The sternal wires and surgical clips noted previously are again evident and no different. The mediastinum is not widened. The osseous structures are intact. IMPRESSION: The appearance of the chest has improved since the prior exam as the left lung base does seem better aerated. A followup study would be recommended for continued evaluation. Dictated by: Dictated on workstation # [id number]
[2017-10-24] MEDS: ENOXAPARIN 100 MG/1 ML (LOVENOX) SYR SC SCH ×2 (09:18→21:07)
[2017-10-24] MEDS: DILTIAZEM IV FOR DRIP 125 MG in D5W 100 ML IVPB 100 ML IV SCH (10:50)
--- NOTE | 2017-10-24 12:36 | History & Physical-Hospitalist ---
HPI History of Present Illness: HPI/Chief Complaint CC: Pneumonia with cough with AF w/RVR HPI: This is a 67-year-old white male [facility] Medrano cardiology who presents to the ICU after presenting to the ER with cough and fever. Patient was found to have pneumonia, exacerbation of COPD, acute on chronic renal failure with creatinine of 1.9 and atrial fibrillation with rapid ventricular rate so he was placed on biPAP. He was placed on Cardizem empirically along with antibiotics after schultz cultured with influenza result of negative. He has since converted to normal sinus rhythm as of 8 o' clock this morning and feels much better but overall very weak and still coughing. He is a DO NOT RESUSCITATE which is reasonable considering so many complex medical issues at such a young age [age] years old. He does wear sleep apnea machine at home but does not use oxygen. He does still smoke. Source: patient, family Exam Limitations: no limitations Date Seen 10/24/17 Time Seen by Provider: 11:15 Attending Physician Yolis Wyman DO PCP No,Local Physician Referring Physician Date of Admission Oct 23, 2017 at 22:32 Home Medications & Allergies Home Medications Reviewed patient Home Medication Reconciliation Form Allergies Allergies Coded Allergies morphine (Verified Allergy, Intermediate, SEVERE ITCHING, 08/15/15) peach (Unverified Allergy, Unknown, 08/14/15) Uncoded Allergies contrex ( Allergy, Unknown, 08/14/15) Past Fznagay-Fecplg-Labjxy Hx Patient Social History Marrital Status: single Employed/Student: retired ([employer] in [place] 69-72 ) Alcohol Use: Denies Use Recreational Drug Use: No Smoking Status: Current Everyday Smoker Type Used: Cigarettes 2nd Hand Smoke Exposure: Yes Physical Abuse Screen: No Sexual Abuse: No Recent Foreign Travel: No Contact w/other who traveled: No Recent Hopitalizations: Yes Recent Infectious Disease Expo: No Immunizations Up To Date Tetanus Booster (TDap): Unknown Date of Pneumonia Vaccine: Aug 30, 2015 Date of Influenza Vaccine: Jul 27, 2015 Seasonal Allergies Seasonal Allergies: No Surgeries Yes (AORTIC FEM X2) Cardiac, CABG, Coronary Stent, Open Heart Surgery, Vascular Surgery Respiratory Yes COPD, Sleep Apnea Currently Using CPAP: Yes Currently Using BIPAP: No Cardiovascular Yes Atrial Fibrillation, Coronary Artery Disease, Heart Attack, High Cholesterol, Hypertension, Peripheral Vascular Neurological Yes Neuropathy Reproductive System Hx Reproductive Disorders: No Sexually Transmitted Disease: No HIV/AIDS: No Genitourinary Yes Renal Failure Gastrointestinal Yes Martinez's Esophagus, Gastrointestinal Bleed, Hiatal Hernia Musculoskeletal Yes Arthritis, Chronic Back Pain Endocrine History of Endocrine Disorders: Yes Endocrine Disorders: Diabetes, Insulin dep, Hypothyroidsim HEENT History of HEENT Disorders: Yes HEENT Disorders: Glaucoma Loss of Vision: Denies Hearing Impairment: Denies Cancer No Psychosocial History of Psychiatric Problem: Yes Behavioral Health Disorders: Depression Integumentary History of Skin or Integumenta: No Blood Transfusions History of Blood Disorders: No Adverse Reaction to a Blood Tr: No Reviewed Nursing Assessment Reviewed/Agree w Nursing PMH: Yes Family Medical History Family Hx: Cardiovascular disease 19 FATHER Deafness or hearing loss 19 FATHER Dementia 19 FATHER, Onset:Unknown Review of Systems Constitutional: see HPI, chills, diaphoresis, dizziness, fever, malaise, weakness EENTM: no symptoms reported Respiratory: cough, short of breath, wheezing Cardiovascular: palpitations Gastrointestinal: loss of appetite, nausea Genitourinary: decreased output Musculoskeletal: back pain Skin: no symptoms reported Psychiatric/Neurological: No Symptoms Reported All Other Systems Reviewed Negative Unless Noted: Yes Physical Exam Physical Exam Vital Signs Vital Sign - Last 12Hours 10/23/17 10/23/17 10/23/17 20:26 22:25 23:53 Temp 97.6 Pulse 105 Resp 26 B/P (MAP) 136/78 (97) Pulse Ox 94 O2 Delivery Room Air O2 Flow Rate 40.00 FiO2 30 Capillary Refill : Less Than 3 Seconds General Appearance: No Apparent Distress, WD/WN, Chronically ill, Obese Eyes: Bilateral Eye Normal Inspection, Bilateral Eye PERRL HEENT: PERRL/EOMI, Normal ENT Inspection, Pharynx Normal Neck: Full Range of Motion, Normal Inspection, Non Tender, Supple, Carotid Bruit Respiratory: Chest Non Tender, No Accessory Muscle Use, No Respiratory Distress , Crackles, Decreased Breath Sounds, Wheezing Cardiovascular: Regular Rate, Rhythm, No Edema, No Gallop, No JVD, No Murmur, Normal Peripheral Pulses Gastrointestinal: Normal Bowel Sounds, No Organomegaly, No Pulsatile Mass, Non Tender, Soft Back: Normal Inspection, No CVA Tenderness, No Vertebral Tenderness Extremity: Normal Capillary Refill, Normal Inspection, Normal Range of Motion, Non Tender, No Calf Tenderness, No Pedal Edema Neurologic/Psychiatric: Alert, Oriented x3, No Motor/Sensory Deficits, Depressed Affect Skin: Normal Color, Warm/Dry Lymphatic: No Adenopathy Results Results/Procedures Lab Laboratory Tests 10/23/17 20:54 10/24/17 04:15 Assessment/Plan Admission Diagnosis Assessment: Respiratory failure requiring biPAP and ICU admit Atrial fibrillation with rapid ventricular response placed on Cardizem drip now converted to normal sinus rhythm Pneumonia empirically placed on antibiotics Sleep apnea maintain on CPAP Acute on chronic renal insufficiency likely diabetic nephropathy creatinine 1.9 at admission now 1.77 Diabetes mellitus on insulin CAD previous bypass surgery Peripheral vascular disease Depression Hypothyroidism Assessment and Plan Plan: IV abx Check ECHO Reconciled home meds but held cardiac meds until Cardiology reviewed O2 Nebs CPAP Insulin Complex issues DNR is prudent Clinical Quality Measures DVT/VTE Risk/Contraindication: Risk Factor Score Per Nursin RFS Level Per Nursing on Admit: 4+=Very High YOLIS WYMAN DO Oct 24, 2017 12:36
[2017-10-24] MEDS: NS IV 1000 ML 1,000 ML IV SCH (12:51)
[2017-10-24] MEDS: ASPIRIN 81 MG CHEW (CHILDREN'S ASA) PO SCH (12:59)
[2017-10-24] MEDS: methylPREDNISolone 40 MG/ML (Solu-MEDROL) VIAL IV SCH (12:59)
[2017-10-24] MEDS: GABAPENTIN 300 MG (NEURONTIN) CAP PO SCH ×2 (13:08→21:05)
--- NOTE | 2017-10-24 14:37 | Consultation-Cardiology ---
HPI-Cardiology Cardiology Consultation: Date of Consultation 10/24/17 Date of Admission Attending Physician Yolis Brito DO Admitting Physician Isabella,Local Physician Consulting Physician Oneil MAS MD HPI: Time Seen by Provider: 13:30 Chief Complaint: Shortness of breath This is a 67-year-old gentleman who is [facility]. 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 He presented to the ER with cough and fever. He was found to have pneumonia and COPD exacerbation. Sleep apnea on CPAP. The patient also has acute on chronic renal failure. Atrial fibrillation on presentation however converted to sinus rhythm overnight on IV Cardizem. Influenza is negative. He also has history of PAD. He is DO NOT RESUSCITATE. Review of Systems-Cardiology Review of Systems Constitutional: No As described under HPI, No no symptoms reported, No chills, fever, No lightheadedness, No malaise, No tiredness, No weight loss, No weight gain, No other Eyes: No As described under HPI, No no symptoms reported, No blindness, No blurred vision, No contact lenses, No drainage, No decreased acuity, No foreign body sensation, No glasses, No inflammation, No pain, No photophobia, No previous injury, No shadows, No tunnel vision, No other, No vision change Ears/Nose/Throat: No As described under HPI, No no symptoms reported, No chronic hearing loss, No epistaxis, No ear discharge, No ear pain, No loose teeth, No mouth pain, No mouth swelling, No nasal drainage, No nose pain, No recent hearing loss, No throat pain, No throat swelling, No ulcerations, No other Respiratory: shortness of breath Cardiovascular: No no symptoms reported, No As described under HPI, No chest pain, No edema, irregular heart rate, No lightheadedness, No palpitations, No syncope, No other Gastrointestinal: No no symptoms reported, No As described under HPI, No abdomen distended, No abdominal pain, No blood streaked bowels, No constipation , No diarrhea, No difficulty swallowing, No nausea, No poor appetite, No poor fluid intake, No rectal bleeding, No vomiting, No other, No nausea/vomiting/ diarrhea, No stool coloration changes Genitourinary: No no symptoms reported, No As described under HPI, No burning, No dysuria, No discharge, No frequency, No flank pain, No hematuria, No incontinence, No pain, No urgency, No other, No urine frequency changes, No urine coloration changes Musculoskeletal: No no symptoms reported, No As describe under HPI, No back pain, No gout, No joint pain, No joint swelling, No muscle pain, No muscle stiffness, No neck pain, No other Skin: No no symptoms reported, No As described under HPI, No change in color, No change in hair/nails, No dryness, No lesions, No lumps, No rash, No other, No skin related problems, No ulcerations, No rash on exposed areas, No ulcerations on exposed areas Psychiatric/Neurological: No no symptoms reported, No As described under HPI, No anxiety, No depression, No emotional problems, No headache, No numbness, No pre-existing deficit, No seizure, No tingling, No tremors, No weakness, No other , No focal weakness, No syncope Hematologic: No no symptoms reported, No As described under HPI, No anemia, No blood clots, No easy bleeding, No easy bruising, No swollen glands, No other, No bleeding abnormalities All Other Systems Reviewed Negative Unless Noted: Yes ABF-Sfunlp-Ftzqsf Hx Patient Social History Marrital Status: single Employed/Student: retired ([employer] in [place] 69-72 ) Alcohol Use: Denies Use Recreational Drug Use: No Smoking Status: Current Everyday Smoker Type Used: Cigarettes 2nd Hand Smoke Exposure: Yes Recent Foreign Travel: No Recent Infectious Disease Expo: No Physical Abuse Screen: No Sexual Abuse: No Immunizations Up To Date Tetanus Booster (TDap): Unknown Date of Pneumonia Vaccine: Aug 30, 2015 Date of Influenza Vaccine: Jul 27, 2015 Past Medical History PMH As described under Assessment. Family Medical History Family History: Cardiovascular disease 19 FATHER Deafness or hearing loss 19 FATHER Dementia 19 FATHER, Onset:Unknown Allergies and Home Medications Allergies Coded Allergies: morphine (Verified Allergy, Intermediate, SEVERE ITCHING, 08/15/15) peach (Unverified Allergy, Unknown, 08/14/15) Uncoded Allergies: contrex (Allergy, Unknown, 08/14/15) Home Medications Aspirin 81 Mg Tab.chew, 81 MG PO DAILY, #30 Prescribed by: TIMOTHY VOGT on 08/30/15 1655 Digoxin 250 Mcg Tablet, 0.25 MG PO HS, #30 Prescribed by: TIMOTHY VOGT on 08/30/15 1655 Ergocalciferol (Vitamin D2) 50,000 Unit Capsule, 50,000 UNITS PO We@09, #30 Prescribed by: TIMOTHY VOGT on 08/30/151654 Gabapentin 300 Mg Capsule, 600 MG PO TID, (Reported) Insulin Aspart 100 Unit/1 Ml Susp, 0 UNIT SQ, (Reported) Insulin Glargine,Hum.rec.anlog 100 Unit/1 Ml Vial, 30 UNIT SC BID, (Reported) Levothyroxine Sodium 25 Mcg Tablet, 25 MCG PO DAILY@0630, #30 Prescribed by: TIMOTHY VOGT on 08/30/151654 Lisinopril 5 Mg Tablet, 5 MG PO DAILY, (Reported) Metoprolol Tartrate 25 Mg Tablet, 25 MG PO BID, #30 Prescribed by: TIMOTHY VOGT on 08/30/151654 Partlow 3 Polyunsat Fatty Acids 1,000 Mg Cap, 1,000 MG PO HS, #30 Prescribed by: TIMOTHY VOGT on 08/30/151654 Partlow 3 Polyunsat Fatty Acids 1,000 Mg Cap, 2,000 MG PO DAILY, #60 Prescribed by: TIMOTHY VOGT on 08/30/151654 Omeprazole 20 Mg Capsule.dr, 20 MG PO BID, (Reported) Pravastatin Sodium 10 Mg Tablet, 10 MG PO, (Reported) Rivaroxaban 20 Mg Tablet, 20 MG PO DAILY@1700, #30 Prescribed by: TIMOTHY VOGT on 08/30/15 165 Trazodone HCl 50 Mg Tablet, 50 MG PO HS, #30 Prescribed by: TIMOTHY VOGT on 08/30/15 165 Physical Exam-Cardiology Physical Exam Vital Signs/I&O Vital Sign - Last 12Hours 10/24/17 10/24/17 10/24/17 10/24/17 03:00 04:00 04:00 04:00 Temp 98.7 Pulse 77 69 Resp 35 24 B/P (MAP) 93/50 (64) 122/47 (72) Pulse Ox 98 93 O2 Delivery NIV Bilevel NIV Bilevel NIV Bilevel NIV Bilevel O2 Flow Rate 30.00 30.00 30.00 FiO2 35 10/24/17 10/24/17 10/24/17 10/24/17 04:28 05:00 06:00 06:35 Pulse 62 70 66 Resp 16 24 26 B/P (MAP) 113/41 (65) 115/55 (75) Pulse Ox 94 99 97 O2 Delivery NIV Bilevel NIV Bilevel Nasal Cannula O2 Flow Rate 30.00 30.00 25.00 2.00 10/24/17 10/24/17 10/24/17 10/24/17 07:00 07:00 08:00 08:00 Temp 97.0 Pulse 78 78 63 Resp 26 14 B/P (MAP) 125/63 (83) 104/89 (94) Pulse Ox 95 94 O2 Delivery Nasal Cannula Nasal Cannula Nasal Cannula O2 Flow Rate 2.00 2.00 2.00 10/24/17 10/24/17 10/24/17 10/24/17 08:06 09:00 10:00 10:50 Pulse 68 73 68 Resp 15 25 B/P (MAP) 103/46 (65) 117/57 (77) 113/50 Pulse Ox 95 96 93 O2 Delivery Nasal Cannula Nasal Cannula Nasal Cannula O2 Flow Rate 1.00 2.00 2.00 10/24/17 10/24/17 10/24/17 10/24/17 11:00 12:00 13:00 13:00 Pulse 70 67 73 72 Resp 18 20 23 B/P (MAP) 115/54 (74) 116/59 (78) 123/62 (82) Pulse Ox 94 93 95 O2 Delivery Nasal Cannula Nasal Cannula Nasal Cannula O2 Flow Rate 2.00 2.00 2.00 10/24/17 13:10 Pulse Ox 93 O2 Delivery Nasal Cannula O2 Flow Rate 1.00 Intake and Output 10/24/17 00:00 Intake Total 500 ml Balance 500 ml Capillary Refill : Less Than 3 Seconds Constitutional: No appears stated age, AAO x 3, apparent distress, No PERRL, well-developed, No well-nourished, No other HEENT: No PERRL, No normal ENT inspection, No TMs normal, No pharynx normal, No scleral icterus (R), No scleral icterus (L), No pale conjunctivae (R), No pale conjunctivae (L), No photophobia, No TM abnormal (R), No TM abnormal (L), No pharyngeal erythema, No tonsillar exudate, No other, No discharge, No EOMI, No hearing is well preserved, No hard of hearing, No oral hygience is good, No ulceration, No xanthelasmas are seen Neck: No non-tender, No full range of motion, No supple, No normal inspection, No carotid bruit, No limited range of motion, No lymphadenopathy (R), No lymphadenopathy (L), No tender lateral, No tender midline, No thyromegaly, No other, No carotid pulses are 2 + bilaterally, No with good upstrokes Respiratory: wheezing Cardiovascular: regular rate-rhythm, No irregularly irregular, No extra beats, No parasternal heave is noted, No JVD, No edema, No bradycardia, No tachycardia , No point of maximal impulse, No cardiac thrills are palpable, S1 and S2, No gallop/S3, No gallop/S4, No diastolic murmur, No systolic murmur, No friction rub, No click, No other Gastrointestinal: No tender, No soft, No round, No distended, No pulsatile mass , No organomegaly, No guarding, No rebound, No tenderness, No hernia, No mass, No audible bowel sounds, No abnormal bowel sounds, No abdominal bruits, No spleenomegaly, No other Rectal: deferred Extremities: No normal range of motion, No non-tender, No normal inspection, No pedal edema, No calf tenderness, No normal capillary refill, No pelvis stable , No calf tenderness, No inflammation, No pedal edema, No slow capillary refill , No swelling, No other, No abrasion, No clubbing, No cyanosis, No ecchymosis, No laceration, No no lower extremity edema bilateral, No significant edema, No tenderness, No wound Neurologic/Psychiatric: No yard truck driver II-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 as tested, No no motor/sensory deficits, No alert, No normal mood/affect, No oriented x 3, No abnormal cerebellar tests, No abnormal yard truck driver II-XII, No abnormal gait, No aphasia, No EOM palsy, No facial droop, No motor weakness, No sensory deficit, No depressed affect, No disoriented x 3, No other, No grossly intact, No power is 5/5 both on sides Skin: No normal color, No warm/dry, No cyanosis, No cool, No diaphoresis, No damp, No ecchymosis, No jaundice, No mottled, No pallor, No rash, No tattoos/ piercings, No ulcerations, No rash on exposed areas, No ulcerations on exposed areas, No other Data Review Labs Laboratory Tests 10/23/17 20:54: White Blood Count 12.0H, Red Blood Count 5.43, Hemoglobin 16.1, Hematocrit 49, Mean Corpuscular Volume 91, Mean Corpuscular Hemoglobin 30, Mean Corpuscular Hemoglobin Concent 33, Red Cell Distribution Width 18.7H, Platelet Count 106L, Mean Platelet Volume , Neutrophils (%) (Auto) 86H, Lymphocytes (%) (Auto) 7L, Monocytes (%) (Auto) 7, Eosinophils (%) (Auto) 0, Basophils (%) (Auto) 0, Neutrophils # (Auto) 10.2H, Lymphocytes # (Auto) 0.9L, Monocytes # (Auto) 0.8, Eosinophils # (Auto) 0.0, Basophils # (Auto) 0.0, Neutrophils % (Manual) 73, Lymphocytes % (Manual) 9, Monocytes % (Manual) 4, Eosinophils % (Manual) 0, Basophils % (Manual) 0, Band Neutrophils 14, Blood Morphology Comment NORMAL, Sodium Level 136, Potassium Level 4.9, Chloride Level 104, Carbon Dioxide Level 19L, Anion Gap 13, Blood Urea Nitrogen 36H, Creatinine 1.90H, Estimat Glomerular Filtration Rate 36, BUN/Creatinine Ratio 19, Glucose Level 168H, Calcium Level 9.6, Total Bilirubin 0.5, Aspartate Amino Transf (AST/SGOT) 33, Alanine Aminotransferase (ALT/SGPT) 30, Alkaline Phosphatase 45, Troponin I < 0.30, B-Type Natriuretic Peptide 104.1H, Total Protein 7.9, Albumin 4.0, Digoxin Level < 0.30L 10/23/17 22:15: Blood Gas Puncture Site LEFT RADIAL, Blood Gas Patient Temperature 101.8, Arterial Blood pH 7.37, Arterial Blood Partial Pressure CO2 31L, Arterial Blood Partial Pressure O2 123H, Arterial Blood HCO3 17*L, Arterial Blood Total CO2 17.8L, Arterial Blood Oxygen Saturation 99, Arterial Blood Base Excess -7.1L, Rashi Test POSITIVE, Blood Gas Ventilator Setting NO, Blood Gas Inspired Oxygen 40% BIPAP 10/23/17 22:55: Lactic Acid Level 0.98 10/24/17 04:15: White Blood Count 7.6, Red Blood Count 4.62, Hemoglobin 13.9, Hematocrit 42, Mean Corpuscular Volume 91, Mean Corpuscular Hemoglobin 30, Mean Corpuscular Hemoglobin Concent 33, Red Cell Distribution Width 18.5H, Platelet Count 81L, Mean Platelet Volume , Neutrophils (%) (Auto) 93H, Lymphocytes (%) (Auto) 5L, Monocytes (%) (Auto) 2, Eosinophils (%) (Auto) 0, Basophils (%) (Auto) 0, Neutrophils # (Auto) 7.1, Lymphocytes # (Auto) 0.3L, Monocytes # (Auto) 0.2, Eosinophils # (Auto) 0.0, Basophils # (Auto) 0.0, Sodium Level 136, Potassium Level 4.7, Chloride Level 106, Carbon Dioxide Level 16L, Anion Gap 14, Blood Urea Nitrogen 43H, Creatinine 1.77H, Estimat Glomerular Filtration Rate 39, BUN/ Creatinine Ratio 24, Glucose Level 229H, Calcium Level 8.6, Phosphorus Level 4.7 , Magnesium Level 2.0 10/24/17 13:03: Glucometer 203H Microbiology 10/23/17 Influenza Types A,B Antigen (JOHNNY) - Final, Complete ECG Impression ECG Initial ECG Impression: Atrial Fibrillation Comment Sinus rhythm on telemetry. A/P-Cardiology Assessment/Admission Diagnosis Shortness of breath, pneumonia, COPD exacerbation, Sleep apnea, Acute on chronic kidney disease, Paroxysmal atrial fibrillation, PAD, hyperlipidemia Plan Shortness of breath, pneumonia: Defer to primary team. On IV antibiotics. COPD exacerbation, Sleep apnea, on CPAP. Acute on chronic kidney disease, continue to follow clinically. Paroxysmal atrial fibrillation: Converted to sinus rhythm on IV Cardizem. On Xarelto for stroke prevention. Gradually taper cardizem. Start Cardizem CD 120mg. Hold off BB due to wheezing. PAD: on plavix. Hyperlipidemia: on statin Thank you for your consultation. Please call me if you have any questions. Dmitry Mas MD, FACP, FACC, FSCAI, FHRS, CCDS Interventional Cardiology Cardiac Electrophysiology Vascular Medicine and Endovascular Interventions Clinical Quality Measures DVT/VTE Risk/Contraindication: Risk Factor Score Per Nursin RFS Level Per Nursing on Admit: 4+=Very High Oneil MAS MD Oct 24, 2017 2:37 pm
[2017-10-24] MEDS ORDERED: NON-FORMULARY MEDICATION 1 EA EA PO SCH (16:15)
[2017-10-24] MEDS: DILTIAZEM 120 MG (CARDIZEM CD) CAP PO SCH (16:58)
[2017-10-24] MEDS ORDERED: RIVAROXABAN 20 MG TABLET (XARELTO) PO SCH (17:00)
[2017-10-24 20:21] LABS: BILIRUBIN,URINE NEGATIVE (NEGATIVE); CLARITY,URINE CLEAR; COLOR,URINE YELLOW; GLUCOSE, URINE (UA) 3+ (NEGATIVE); KETONES,URINE NEGATIVE (NEGATIVE); LEUKOCYTE ESTERASE ,URINE NEGATIVE (NEGATIVE); NITRITE,URINE NEGATIVE (NEGATIVE); PH,URINE 5 (5-9); PROTEIN,URINE 2+ (NEGATIVE); UROBILINOGEN,URINE NORMAL (NORMAL)
[2017-10-24 20:34] LABS: BACTERIA,URINE TRACE /HPF; SQUAMOUS EPITHELIAL CELL,UR RARE /HPF; URIC ACID CRYSTALS,URINE MODERATE /LPF; WBC,URINE 0-2 /HPF
[2017-10-24] MEDS ORDERED: traZODone 50 MG (DESYREL) TAB PO SCH (21:00)
[2017-10-24] MEDS: OMEGA 3 (FISH OIL) 1000 MG CAP PO SCH (21:05)
[2017-10-24] MEDS: DIGOXIN 0.25 MG (LANOXIN) TAB PO SCH (21:05)
[2017-10-24] MEDS: traZODone 50 MG (DESYREL) TAB PO SCH (21:05)
[2017-10-24] MEDS: PANTOPRAZOLE 20 MG TABLET (PROTONIX) PO SCH (21:05)
[2017-10-24] MEDS: inSUlin DETERMIR 1 UNIT/0.01 ML (LEVEMIR) CHARGE PER UNIT SQ SCH (21:06)
[2017-10-24] MEDS: SIMvastatin 10 MG (ZOCOR) TAB PO SCH (21:06)
[2017-10-24] MEDS ORDERED: CLOP75TA69 PO (21:13)
[2017-10-24] MEDS ORDERED: FERR325T18 PO (21:14)
[2017-10-24] MEDS ORDERED: FENO48TA16 PO (21:16)
[2017-10-24] MEDS ORDERED: BUDE10.22 IH (21:18)
[2017-10-24] MEDS ORDERED: RT-ALBUINH IH (21:19)
[2017-10-25] VITALS (30 sets, daily range): BP systolic 99–167; BP diastolic 48–87
[2017-10-25] MEDS: methylPREDNISolone 40 MG/ML (Solu-MEDROL) VIAL IV SCH ×4 (00:31→19:00)
[2017-10-25] MEDS: NS IV 1000 ML 1,000 ML IV SCH (02:24)
[2017-10-25] MEDS: RT-ALBUTEROL/IPRATROPIUM 3 ML (DUONEB) VIAL INH SCH ×5 (02:34→18:47)
[2017-10-25 04:50] LABS: BASOPHILS % (AUTO) 0 % (0-10); EOSINOPHILS % (AUTO) 0 % (0-10); HEMATOCRIT 40 % (40-54); HEMOGLOBIN 13.4 G/DL (13.3-17.7); LYMPHOCYTES # (AUTO) 0.3 X 10^3 (1.0-4.0); LYMPHOCYTES % (AUTO) 2 % (12-44); MEAN CORPUSCULAR HEMOGLOBIN 30 PG (25-34); MEAN CORPUSCULAR HGB CONC 33 G/DL (32-36); MEAN CORPUSCULAR VOLUME 90 FL (80-99); MONOCYTES # (AUTO) 0.7 X 10^3 (0.0-1.0); MONOCYTES % (AUTO) 5 % (0-12); NEUTROPHILS # (AUTO) 13.2 X 10^3 (1.8-7.8); NEUTROPHILS % (AUTO) 93 % (42-75); PLATELET COUNT 86 10^3/uL (130-400); RED BLOOD COUNT 4.47 10^6/uL (4.35-5.85); RED CELL DISTRIBUTION WIDTH 18.3 % (10.0-14.5); WHITE BLOOD COUNT 14.3 10^3/uL (4.3-11.0)
[2017-10-25 05:05] LABS: CALCIUM 8.5 MG/DL (8.5-10.1); CREATININE SERUM 1.52 MG/DL (0.60-1.30); MAGNESIUM 2.1 MG/DL (1.8-2.4); PHOSPHORUS 2.7 MG/DL (2.3-4.7); POTASSIUM 4.2 MMOL/L (3.6-5.0)
[2017-10-25 05:27] LABS: ANISOCYTOSIS SLIGHT; BAND NEUTROPHILS 5 %; BASOPHILS % (MANUAL) 0 %; ELLIPT/OVALOCYTES SLIGHT; EOSINOPHILS % (MANUAL) 0 %; LYMPHOCYTES % (MANUAL) 1 %; MONOCYTES % (MANUAL) 2 %; NEUTROPHILS % (MANUAL) 92 %
[2017-10-25] MEDS: POTASSIUM CL 10MEQ/50ML IVPB 50 ML IV SCH (05:31)
[2017-10-25] MEDS: KCL 20 MEQ TAB (K-DUR) PO SCH (05:34)
[2017-10-25] MEDS: MAGNESIUM 1 GM/100 ML IVPB 100 ML IV SCH (05:34)
[2017-10-25] MEDS ORDERED: PIPERACILLIN/TAZO 4.5 GM VIAL (ZOSYN) IV ONE (06:01)
[2017-10-25] MEDS ORDERED: D5W 100 ML IVPB 100 ML IV ONE (06:04)
[2017-10-25] MEDS: PIPERACILLIN/TAZOBACTAM 4.5 GM/D5W 100 ML IVPB IV SCH ×6 (06:09→20:48)
[2017-10-25] MEDS: inSUlin (REGULAR) HUMAN 1 UNIT/0.01 ML (CHARGE PER UNIT) SC SCH ×4 (06:09→21:18)
[2017-10-25] MEDS: LEVOTHYROXINE 25 MCG (LEVOTHROID) TAB PO SCH (06:09)
--- NOTE | 2017-10-25 06:55 | Pulmonary Progress Note ---
Subjective Time Seen by Provider: 06:54 Subjective/Events-last exam Pt is currently in acute respiratory distress. Placing back on BiPAP. Exam Exam Vital Signs Date Time Temp Pulse Resp B/P (MAP) Pulse Ox O2 Delivery O2 Flow Rate FiO2 10/25/17 06:35 86 27 167/75 (105) 96 NIV Bilevel 25.00 10/25/17 06:15 86 20 141/67 (91) 94 Nasal Cannula 3.00 10/25/17 06:00 73 22 126/68 (87) 96 NIV Bilevel 25.00 10/25/17 05:00 77 26 126/65 (85) 94 NIV Bilevel 25.00 10/25/17 04:23 62 29 94 25.00 10/25/17 04:00 NIV Bilevel 25 10/25/17 04:00 89 23 123/71 (88) 92 NIV Bilevel 25.00 10/25/17 04:00 96.9 NIV Bilevel 25.00 10/25/17 03:00 83 23 110/64 (79) 94 NIV Bilevel 25.00 10/25/17 02:34 88 23 95 25.00 10/25/17 02:00 89 23 123/71 (88) 92 NIV Bilevel 25.00 10/25/17 01:00 93 10/25/17 01:00 93 27 131/62 (85) 94 NIV Bilevel 25.00 10/25/17 01:00 99.3 10/25/17 00:57 90 20 94 25.00 10/25/17 00:30 100.3 10/25/17 00:00 NIV Bilevel 25 10/25/17 00:00 100.2 89 27 110/58 (75) 95 NIV Bilevel 25.00 10/24/17 23:22 NIV Bilevel 25.00 10/24/17 23:17 122 20 95 25.00 10/24/17 23:00 103 27 138/65 (89) 94 Nasal Cannula 3.00 10/24/17 22:35 Nasal Cannula 3.00 10/24/17 22:00 87 21 125/78 (94) 97 Nasal Cannula 1.00 10/24/17 21:56 92 Nasal Cannula 1.00 10/24/17 21:00 120 28 114/66 (82) 93 Nasal Cannula 1.00 10/24/17 20:00 Nasal Cannula 1.00 10/24/17 20:00 90 23 149/72 (97) 92 Nasal Cannula 1.00 10/24/17 19:45 91 20 135/67 (89) 92 Nasal Cannula 1.00 10/24/17 19:30 85 25 151/68 (95) 92 Nasal Cannula 1.00 10/24/17 19:27 97.8 Nasal Cannula 1.00 10/24/17 19:15 78 21 148/51 (83) 92 Nasal Cannula 1.00 10/24/17 19:00 90 25 136/66 (89) 91 Nasal Cannula 1.00 10/24/17 19:00 90 10/24/17 18:39 94 Nasal Cannula 1.00 10/24/17 18:00 81 22 123/68 (86) 92 Nasal Cannula 1.00 10/24/17 17:00 86 23 102/69 (80) 91 Nasal Cannula 1.00 10/24/17 16:00 Nasal Cannula 1.00 10/24/17 16:00 98.1 Nasal Cannula 1.00 10/24/17 16:00 95 21 107/60 (76) 93 Nasal Cannula 1.00 10/24/17 15:00 88 26 133/68 (89) 94 Nasal Cannula 1.00 10/24/17 14:52 93 Nasal Cannula 1.00 10/24/17 14:00 Nasal Cannula 1.00 10/24/17 13:10 93 Nasal Cannula 1.00 10/24/17 13:00 72 10/24/17 13:00 73 23 123/62 (82) 95 Nasal Cannula 2.00 10/24/17 12:00 Nasal Cannula 2.00 10/24/17 12:00 98.7 Nasal Cannula 2.00 10/24/17 12:00 67 20 116/59 (78) 93 Nasal Cannula 2.00 10/24/17 11:00 70 18 115/54 (74) 94 Nasal Cannula 2.00 10/24/17 10:50 68 113/50 10/24/17 10:00 73 25 117/57 (77) 93 Nasal Cannula 2.00 10/24/17 09:00 68 15 103/46 (65) 96 Nasal Cannula 2.00 10/24/17 08:06 95 Nasal Cannula 1.00 10/24/17 08:00 63 14 104/89 (94) 94 Nasal Cannula 2.00 10/24/17 08:00 97.0 Nasal Cannula 2.00 10/24/17 08:00 Nasal Cannula 2.00 10/24/17 07:00 78 26 125/63 (83) 95 Nasal Cannula 2.00 10/24/17 07:00 78 I & O 10/25/17 07:00 Intake Total 2110 ml Output Total 2250 ml Balance -140 ml General Appearance: No Apparent Distress, WD/WN, Chronically ill, Obese HEENT: PERRL/EOMI, Normal ENT Inspection, Pharynx Normal Neck: Full Range of Motion, Normal Inspection, Non Tender, Supple, Carotid Bruit Respiratory: Chest Non Tender, No Accessory Muscle Use, No Respiratory Distress , Crackles, Decreased Breath Sounds, Wheezing Cardiovascular: Regular Rate, Rhythm, No Edema, No Gallop, No JVD, No Murmur, Normal Peripheral Pulses Capillary Refill: Less Than 3 Seconds Gastrointestinal: normal bowel sounds, non tender, soft Extremity: Normal Capillary Refill, Normal Inspection, Normal Range of Motion, Non Tender, No Calf Tenderness, No Pedal Edema Neurologic/Psychiatric: Alert, Oriented x3, No Motor/Sensory Deficits, Depressed Affect Skin: Normal Color, Warm/Dry Lymphatic: No Adenopathy Results Lab Laboratory Tests 10/23/17 20:54 10/24/17 04:15 10/25/17 04:05 Assessment/Plan Assessment/Plan Acute respiratory failure -BiPAP -place [facility] -Decrease IVF to 30cc/hr and lasix 40mg IV x 1 -DuoNeb with pulmicare COPDAE -SVNs -BiPAP PRN -Oxygen -Start solumedrol IV Q6 Pulmary edema -Check BNP Afib RVR -Cardizem gtt -IVF -Cardiology following Acute renal failure -IVF -Monitor Sleep apea 233 Clinical Quality Measures DVT/VTE Risk/Contraindication: Risk Factor Score Per Nursin RFS Level Per Nursing on Admit: 4+=Very High NERY ALANIS DO Oct 25, 2017 06:55
[2017-10-25] MEDS ORDERED: FUROSEMIDE 40 MG/4 ML INJ (LASIX) IVP ONE (07:00)
[2017-10-25] MEDS: RT-BUDESONIDE NEBS 0.5 MG/2ML (PULMICORT) AMP INH SCH ×2 (07:18→18:47)
--- NOTE | 2017-10-25 10:28 | Diagnostic Imaging Report ---
INDICATION: Cough. COMPARISON: 10/24/2017. FINDINGS: Interval worsening of multifocal bilateral pulmonary opacities in the mid and upper lung zones. No pleural effusion or pneumothorax. Stable cardiomediastinal silhouette status post CABG. IMPRESSION: Worsening of bilateral multifocal consolidations likely due to multifocal pneumonia per patient's history. Dictated on workstation # [id number]
[2017-10-25] MEDS: OMEGA 3 (FISH OIL) 1000 MG CAP PO SCH ×2 (10:30→21:11)
[2017-10-25] MEDS: PANTOPRAZOLE 20 MG TABLET (PROTONIX) PO SCH ×2 (10:30→21:11)
[2017-10-25] MEDS: CLOPIDOGREL 75 MG (PLAVIX) TABLET PO SCH (10:31)
[2017-10-25] MEDS: inSUlin DETERMIR 1 UNIT/0.01 ML (LEVEMIR) CHARGE PER UNIT SQ SCH ×2 (10:31→21:17)
[2017-10-25] MEDS: ASPIRIN 81 MG CHEW (CHILDREN'S ASA) PO SCH (10:31)
[2017-10-25] MEDS: GABAPENTIN 300 MG (NEURONTIN) CAP PO SCH ×3 (10:31→21:11)
[2017-10-25] MEDS: DILTIAZEM 120 MG (CARDIZEM CD) CAP PO SCH (10:31)
[2017-10-25] MEDS: lisINopril 5 MG (PRINIVIL) TABLET PO SCH (10:31)
[2017-10-25] MEDS ORDERED: FUROSEMIDE 40 MG/4 ML INJ (LASIX) ONE (10:33)
[2017-10-25] MEDS: ENOXAPARIN 100 MG/1 ML (LOVENOX) SYR SC SCH ×2 (10:58→21:18)
--- NOTE | 2017-10-25 12:51 | Cardiology Progress Note ---
Cardiology SOAP Progress Note Subjective: Improved symptoms. Objective: I&O/Vital Signs Vital Sign - Last 12Hours 10/25/17 10/25/17 10/25/17 10/25/17 00:57 01:00 01:00 01:00 Temp 99.3 Pulse 90 93 93 Resp 20 27 B/P (MAP) 131/62 (85) Pulse Ox 94 94 O2 Delivery NIV Bilevel O2 Flow Rate 25.00 25.00 10/25/17 10/25/17 10/25/17 10/25/17 02:00 02:34 03:00 04:00 Temp 96.9 Pulse 89 88 83 Resp 23 23 23 B/P (MAP) 123/71 (88) 110/64 (79) Pulse Ox 92 95 94 O2 Delivery NIV Bilevel NIV Bilevel NIV Bilevel O2 Flow Rate 25.00 25.00 25.00 25.00 10/25/17 10/25/17 10/25/17 10/25/17 04:00 04:00 04:23 05:00 Pulse 89 62 77 Resp 23 29 26 B/P (MAP) 123/71 (88) 126/65 (85) Pulse Ox 92 94 94 O2 Delivery NIV Bilevel NIV Bilevel NIV Bilevel O2 Flow Rate 25.00 25.00 25.00 FiO2 25 10/25/17 10/25/17 10/25/17 10/25/17 06:00 06:15 06:35 07:00 Pulse 73 86 86 84 Resp 22 20 27 24 B/P (MAP) 126/68 (87) 141/67 (91) 167/75 (105) 132/76 (94) Pulse Ox 96 94 96 95 O2 Delivery NIV Bilevel Nasal Cannula NIV Bilevel NIV Bilevel O2 Flow Rate 25.00 3.00 25.00 25.00 10/25/17 10/25/17 10/25/17 10/25/17 07:00 07:18 08:00 08:00 Temp 98.3 Pulse 84 79 82 Resp 23 20 B/P (MAP) 146/79 (101) Pulse Ox 96 98 O2 Delivery NIV Bilevel Nasal Cannula O2 Flow Rate 25.00 25.00 3.00 10/25/17 10/25/17 10/25/17 09:00 11:22 12:00 Temp 97.9 Pulse 82 Resp 24 B/P (MAP) 140/71 (94) Pulse Ox 96 92 O2 Delivery NIV Bilevel Nasal Cannula Room Air O2 Flow Rate 25.00 3.00 Intake and Output 10/25/17 00:00 Intake Total 1010 ml Output Total 950 ml Balance 60 ml Weight (Pounds): 207 Weight (Ounces): 1.0 Weight (Calculated Kilograms): 93.275506 Constitutional: No appears stated age, AAO x 3, apparent distress, No PERRL, well-developed, No well-nourished, No other Respiratory: wheezing Cardiovascular: regular rate-rhythm, No irregularly irregular, No extra beats, No parasternal heave is noted, No JVD, No edema, No bradycardia, No tachycardia , No point of maximal impulse, No cardiac thrills are palpable, S1 and S2, No gallop/S3, No gallop/S4, No diastolic murmur, No systolic murmur, No friction rub, No click, No other Gastrointestional: No tender, No soft, No round, No distended, No pulsatile mass, No organomegaly, No guarding, No rebound, No tenderness, No hernia, No mass, No audible bowel sounds, No abnormal bowel sounds, No abdominal bruits, No spleenomegaly, No other Extremities: No normal range of motion, No non-tender, No normal inspection, No pedal edema, No calf tenderness, No normal capillary refill, No pelvis stable , No calf tenderness, No inflammation, No pedal edema, No slow capillary refill , No swelling, No other, No abrasion, No clubbing, No cyanosis, No ecchymosis, No laceration, No no lower extremity edema bilateral, No significant edema, No tenderness, No wound Neurologic/Psychiatric: No hydrogen power plant manager II-XII nml as tested, No no motor/sensory deficits, No alert, No normal mood/affect, No oriented x 3, No abnormal cerebellar tests, No abnormal hydrogen power plant manager II-XII, No abnormal gait, No aphasia, No EOM palsy, No facial droop, No motor weakness, No sensory deficit, No depressed affect, No disoriented x 3, No other, No grossly intact, No power is 5/5 both on sides Skin: No normal color, No warm/dry, No cyanosis, No cool, No diaphoresis, No damp, No ecchymosis, No jaundice, No mottled, No pallor, No rash, No tattoos/ piercings, No ulcerations, No rash on exposed areas, No ulcerations on exposed areas, No other Results/Procedures: Labs Laboratory Tests 10/24/17 13:03: Glucometer 203H 10/24/17 16:33: Glucometer 326H 10/24/17 17:00: Urine Color YELLOW, Urine Clarity CLEAR, Urine pH 5, Urine Specific [place] 1.020, Urine Protein 2+H, Urine Glucose (UA) 3+H, Urine Ketones NEGATIVE, Urine Nitrite NEGATIVE, Urine Bilirubin NEGATIVE, Urine Urobilinogen NORMAL, Urine Leukocyte Esterase NEGATIVE, Urine RBC (Auto) NEGATIVE, Urine RBC NONE, Urine WBC 0-2, Urine Squamous Epithelial Cells RARE, Urine Renal Epithelial Cells NONE , Urine Crystals PRESENTH, Urine Uric Acid Crystals MODERATEH, Urine Bacteria TRACE, Urine Casts NONE, Urine Mucus NEGATIVE, Urine Culture Indicated NO 10/24/17 20:54: Glucometer 366H 10/25/17 04:05: White Blood Count 14.3H, Red Blood Count 4.47, Hemoglobin 13.4, Hematocrit 40, Mean Corpuscular Volume 90, Mean Corpuscular Hemoglobin 30, Mean Corpuscular Hemoglobin Concent 33, Red Cell Distribution Width 18.3H, Platelet Count 86L, Mean Platelet Volume , Neutrophils (%) (Auto) 93H, Lymphocytes (%) (Auto) 2L, Monocytes (%) (Auto) 5, Eosinophils (%) (Auto) 0, Basophils (%) (Auto) 0, Neutrophils # (Auto) 13.2H, Lymphocytes # (Auto) 0.3L, Monocytes # (Auto) 0.7, Eosinophils # (Auto) 0.0, Basophils # (Auto) 0.0, Neutrophils % (Manual) 92, Lymphocytes % (Manual) 1, Monocytes % (Manual) 2, Eosinophils % (Manual) 0, Basophils % (Manual) 0, Band Neutrophils 5, Anisocytosis SLIGHT, Elliptocytes SLIGHT, Sodium Level 137, Potassium Level 4.2, Chloride Level 108H, Carbon Dioxide Level 18L, Anion Gap 11, Blood Urea Nitrogen 46H, Creatinine 1.52H, Estimat Glomerular Filtration Rate 46, BUN/Creatinine Ratio 30, Glucose Level 266H, Calcium Level 8.5, Phosphorus Level 2.7, Magnesium Level 2.1, B-Type Natriuretic Peptide 142.4H 10/25/17 11:07: Glucometer 153H Microbiology 10/23/17 Blood Culture - Preliminary, Resulted No growth 10/23/17 Influenza Types A,B Antigen (JOHNNY) - Final, Complete A/P: Assessment/Dx: Shortness of breath, pneumonia, COPD exacerbation, Sleep apnea, Acute on chronic kidney disease, Paroxysmal atrial fibrillation, PAD, hyperlipidemia Plan: Shortness of breath, pneumonia: Defer to primary team. On IV antibiotics. COPD exacerbation, Sleep apnea, on CPAP. Acute on chronic kidney disease, continue to follow clinically. Paroxysmal atrial fibrillation: Converted to sinus rhythm on IV Cardizem. On Xarelto for stroke prevention. Gradually taper cardizem. Start Cardizem CD 120mg. Hold off BB due to wheezing. DC digoxin. PAD: on plavix. Hyperlipidemia: on statin Thank you for your consultation. Please call me if you have any questions. Dmitry Mas MD, FACP, FACC, FSCAI, FHRS, CCDS Interventional Cardiology Cardiac Electrophysiology Vascular Medicine and Endovascular Interventions Oneil MAS MD Oct 25, 2017 12:51 pm
--- NOTE | 2017-10-25 13:35 | Progress Note-Hospitalist ---
Progress Note HPI/CC on Admission CC: Pneumonia with cough with AF w/RVR HPI: This is a 67-year-old white male [facility]rano cardiology who presents to the ICU after presenting to the ER with cough and fever. Patient was found to have pneumonia, exacerbation of COPD, acute on chronic renal failure with creatinine of 1.9 and atrial fibrillation with rapid ventricular rate so he was placed on biPAP. He was placed on Cardizem empirically along with antibiotics after schultz cultured with influenza result of negative. He has since converted to normal sinus rhythm as of 8 o' clock this morning and feels much better but overall very weak and still coughing. He is a DO NOT RESUSCITATE which is reasonable considering so many complex medical issues at such a young age [age] years old. He does wear sleep apnea machine at home but does not use oxygen. He does still smoke. Progress Notes/Assess & Plan Date Seen 10/25/17 Time Seen by Provider: 12:15 Admission Dx/Process Assessment: Respiratory failure requiring biPAP and ICU admit Atrial fibrillation with rapid ventricular response placed on Cardizem drip now converted to normal sinus rhythm Pneumonia empirically placed on antibiotics Sleep apnea maintain on CPAP Acute on chronic renal insufficiency likely diabetic nephropathy creatinine 1.9 at admission now 1.77 Diabetes mellitus on insulin CAD previous bypass surgery Peripheral vascular disease Depression Hypothyroidism Diagonsis/Assessment & Plan Patient feels much better sometimes then worse at others We'll maintain catheter due to need for accurate I's and nose due to creatinine elevation per Dr. Lockett Will remain in ICU due to the bilateral wheezing he still remains on lung exam Trying to evaluate home medication list accuracy by pharmacy affairs assistant Very complex issues long-term prognosis poor due to young age and so many complex comorbidities No fever, improved, vital signs stable, pleasant Regular rate and rhythm, wheezing all sims but no tachypnea Trace edema lower extremities Laboratory Tests 10/25/17 04:05 Assessment: Respiratory failure requiring biPAP and ICU admit now on NC but still wheezing Atrial fibrillation with rapid ventricular response placed on Cardizem drip now converted to normal sinus rhythm Pneumonia empirically placed on antibiotics Sleep apnea maintain on CPAP Acute on chronic renal insufficiency likely diabetic nephropathy creatinine 1.9 at admission now 1.5 Diabetes mellitus on insulin CAD previous bypass surgery Peripheral vascular disease Depression Hypothyroidism Thrombocytopenia chronic? Leukocytosis Plan: IV abx Reconcile home meds when accurate list is evaluated by pharmacy affairs assistant O2 Nebs CPAP Insulin Complex issues DNR is prudent JOSE WYMAN DO Oct 25, 2017 13:35
[2017-10-25] MEDS: DIGOXIN 0.25 MG (LANOXIN) TAB PO SCH (21:10)
[2017-10-25] MEDS: SIMvastatin 10 MG (ZOCOR) TAB PO SCH (21:11)
[2017-10-25] MEDS: DILTIAZEM IV FOR DRIP 125 MG in D5W 100 ML IVPB 100 ML IV SCH (22:00)
[2017-10-25] MEDS: traZODone 50 MG (DESYREL) TAB PO SCH (22:10)
[2017-10-26] VITALS (24 sets, daily range): BP systolic 102–150; BP diastolic 57–94
[2017-10-26] MEDS: methylPREDNISolone 40 MG/ML (Solu-MEDROL) VIAL IV SCH ×5 (00:26→23:52)
[2017-10-26] MEDS: RT-ALBUTEROL/IPRATROPIUM 3 ML (DUONEB) VIAL INH SCH ×7 (01:57→23:00)
[2017-10-26] MEDS: PIPERACILLIN/TAZOBACTAM 4.5 GM/D5W 100 ML IVPB IV SCH ×6 (03:55→21:16)
[2017-10-26 05:17] LABS: BASOPHILS % (AUTO) 0 % (0-10); EOSINOPHILS % (AUTO) 0 % (0-10); HEMATOCRIT 41 % (40-54); HEMOGLOBIN 13.6 G/DL (13.3-17.7); LYMPHOCYTES # (AUTO) 0.5 X 10^3 (1.0-4.0); LYMPHOCYTES % (AUTO) 3 % (12-44); MEAN CORPUSCULAR HEMOGLOBIN 30 PG (25-34); MEAN CORPUSCULAR HGB CONC 33 G/DL (32-36); MEAN CORPUSCULAR VOLUME 90 FL (80-99); MONOCYTES # (AUTO) 0.7 X 10^3 (0.0-1.0); MONOCYTES % (AUTO) 5 % (0-12); NEUTROPHILS # (AUTO) 15.2 X 10^3 (1.8-7.8); NEUTROPHILS % (AUTO) 93 % (42-75); PLATELET COUNT 121 10^3/uL (130-400); RED BLOOD COUNT 4.55 10^6/uL (4.35-5.85); RED CELL DISTRIBUTION WIDTH 18.3 % (10.0-14.5); WHITE BLOOD COUNT 16.4 10^3/uL (4.3-11.0)
[2017-10-26 05:40] LABS: CALCIUM 8.6 MG/DL (8.5-10.1); CREATININE SERUM 1.29 MG/DL (0.60-1.30); MAGNESIUM 2.2 MG/DL (1.8-2.4); PHOSPHORUS 2.9 MG/DL (2.3-4.7)
[2017-10-26] MEDS: inSUlin (REGULAR) HUMAN 1 UNIT/0.01 ML (CHARGE PER UNIT) SC SCH ×4 (06:00→21:16)
[2017-10-26] MEDS: MAGNESIUM 1 GM/100 ML IVPB 100 ML IV SCH (06:00)
[2017-10-26] MEDS: POTASSIUM CL 10MEQ/50ML IVPB 50 ML IV SCH (06:00)
[2017-10-26] MEDS: KCL 20 MEQ TAB (K-DUR) PO SCH (06:00)
[2017-10-26] MEDS: LEVOTHYROXINE 25 MCG (LEVOTHROID) TAB PO SCH (06:20)
--- NOTE | 2017-10-26 07:22 | Pulmonary Progress Note ---
Subjective Time Seen by Provider: 07:23 Subjective/Events-last exam pt is doing better. He still c/o SOB and wheezing. Exam Exam Vital Signs Date Time Temp Pulse Resp B/P (MAP) Pulse Ox O2 Delivery O2 Flow Rate FiO2 10/26/17 07:00 72 21 137/68 (91) 93 Nasal Cannula 2.00 10/26/17 06:00 75 24 118/94 (102) 91 Nasal Cannula 2.00 10/26/17 05:00 86 23 92 Nasal Cannula 2.00 10/26/17 04:00 Nasal Cannula 2.00 10/26/17 04:00 97.3 73 23 133/70 (91) 91 Nasal Cannula 2.00 10/26/17 03:00 78 24 129/73 (91) 91 Nasal Cannula 2.00 10/26/17 02:00 80 25 121/63 (82) 94 Nasal Cannula 2.00 10/26/17 01:00 67 20 117/57 (77) 94 Nasal Cannula 2.00 10/26/17 01:00 67 10/26/17 00:00 Nasal Cannula 2.00 10/26/17 00:00 99.3 75 22 107/66 (80) 91 Nasal Cannula 2.00 10/25/17 23:00 83 34 128/63 (84) 90 Room Air 10/25/17 22:00 89 17 117/48 (71) 90 Room Air 10/25/17 21:00 93 19 128/74 (92) 91 Room Air 10/25/17 20:00 Room Air 10/25/17 20:00 98.8 98 25 128/78 (95) 91 Room Air 10/25/17 19:00 85 33 140/76 (97) 93 Room Air 10/25/17 19:00 94 10/25/17 18:47 93 Room Air 10/25/17 18:47 93 Room Air 10/25/17 18:00 82 27 132/74 (93) 92 Room Air 10/25/17 17:00 81 22 131/72 (91) 92 Room Air 10/25/17 16:00 70 28 99/52 (68) 92 Room Air 10/25/17 16:00 98.6 Room Air 10/25/17 16:00 Room Air 10/25/17 15:00 84 21 126/80 (95) 92 Room Air 10/25/17 14:37 93 Room Air 10/25/17 14:00 87 19 118/71 (87) 91 Room Air 10/25/17 13:00 87 22 116/62 (80) 90 Room Air 10/25/17 13:00 87 10/25/17 12:00 83 15 133/75 (94) 93 Room Air 25.00 10/25/17 12:00 Room Air 10/25/17 12:00 97.9 Room Air 10/25/17 11:22 92 Nasal Cannula 3.00 10/25/17 11:00 85 28 140/72 (94) 96 Nasal Cannula 3.00 10/25/17 10:00 71 16 131/67 (88) 95 NIV Bilevel 3.00 10/25/17 09:00 82 24 140/71 (94) 96 Nasal Cannula 3.00 10/25/17 08:00 98.3 Nasal Cannula 3.00 10/25/17 08:00 82 20 146/79 (101) 98 Nasal Cannula 3.00 10/25/17 08:00 Nasal Cannula 3.00 10/25/17 07:18 79 23 96 25.00 I & O 10/26/17 07:00 Intake Total 2346 ml Output Total 2275 ml Balance 71 ml General Appearance: No Apparent Distress, WD/WN, Chronically ill, Obese HEENT: PERRL/EOMI, Normal ENT Inspection, Pharynx Normal Neck: Full Range of Motion, Normal Inspection, Non Tender, Supple, Carotid Bruit Respiratory: Chest Non Tender, No Accessory Muscle Use, No Respiratory Distress , Crackles, Decreased Breath Sounds, Wheezing Cardiovascular: Regular Rate, Rhythm, No Edema, No Gallop, No JVD, No Murmur, Normal Peripheral Pulses Capillary Refill: Less Than 3 Seconds Gastrointestinal: normal bowel sounds, non tender, soft Extremity: Normal Capillary Refill, Normal Inspection, Normal Range of Motion, Non Tender, No Calf Tenderness, No Pedal Edema Neurologic/Psychiatric: Alert, Oriented x3, No Motor/Sensory Deficits, Depressed Affect Skin: Normal Color, Warm/Dry Lymphatic: No Adenopathy Results Lab Laboratory Tests 10/25/17 04:05 10/26/17 05:05 Assessment/Plan Assessment/Plan Acute respiratory failure -BiPAP PRN -Hep lock IVF - Give another 40mg of IV lasix -DuoNeb with [facility] - pt does not have home 02 -SVNs -BiPAP PRN -Oxygen - solumedrol IV Q6 Pulmary edema -Repeat lasix Afib -IVF -Cardiology following Acute renal failure -IVF -Monitor Sleep apea will transfer to [facility] with [facility] and continue to monitor close. 233 Clinical Quality Measures DVT/VTE Risk/Contraindication: Risk Factor Score Per Nursin RFS Level Per Nursing on Admit: 4+=Very High NERY ALANIS DO Oct 26, 2017 07:22
[2017-10-26] MEDS: RT-BUDESONIDE NEBS 0.5 MG/2ML (PULMICORT) AMP INH SCH ×2 (07:24→23:00)
[2017-10-26] MEDS ORDERED: FUROSEMIDE 40 MG/4 ML INJ (LASIX) IVP NR (07:30)
--- NOTE | 2017-10-26 07:59 | Progress Note-Hospitalist ---
Subjective HPI/CC On Admission Date Seen by Provider: Oct 26, 2017 Time Seen by Provider: 07:45 CC: Pneumonia with cough with AF w/RVR HPI: This is a 67-year-old white male [facility] patient at [place] and Dr. Medrano cardiology who presents to the ICU after presenting to the ER with cough and fever. Patient was found to have pneumonia, exacerbation of COPD, acute on chronic renal failure with creatinine of 1.9 and atrial fibrillation with rapid ventricular rate so he was placed on biPAP. He was placed on Cardizem empirically along with antibiotics after schultz cultured with influenza result of negative. He has since converted to normal sinus rhythm as of 8 o' clock this morning and feels much better but overall very weak and still coughing. He is a DO NOT RESUSCITATE which is reasonable considering so many complex medical issues at such a young age [age] years old. He does wear sleep apnea machine at home but does not use oxygen. He does still smoke. Subjective/Events-last exam Pt reports feeling better since admission but feels his breathing is "labored" still. Just completed breathing treatments, unsure if he feels better. Objective Exam Vital Signs Vital Sign - Last 12Hours 10/23/17 10/23/17 10/23/17 20:26 22:25 23:53 Temp 97.6 Pulse 105 Resp 26 B/P (MAP) 136/78 (97) Pulse Ox 94 O2 Delivery Room Air O2 Flow Rate 40.00 FiO2 30 Capillary Refill : Less Than 3 Seconds General Appearance: WD/WN, Mild Distress Respiratory: Accessory Muscle Use, Wheezing Cardiovascular: No Murmur, Irregularly Irregular Gastrointestinal: Normal Bowel Sounds, Non Tender, Soft Extremity: No Calf Tenderness, No Pedal Edema Neurologic/Psychiatric: Alert, Oriented x3 Results/Procedures Lab Laboratory Tests 10/26/17 05:05 Assessment/Plan Assessment and Plan Assess & Plan/Chief Complaint acute respiratory failure Diagnosis/Problems Diagnosis/Problems (1) Acute respiratory distress Status: Acute Assessment & Plan: Off BiPAP INcreased work of breathing Will maintain in ICU today Lasix ordered MAT protocol (2) Atrial fibrillation with rapid ventricular response Status: Acute Assessment & Plan: On presentation, now RVR resolved Cardiology consulted, appreciate recs On Diltiazem (3) COPD exacerbation Status: Acute Assessment & Plan: Continue steroids, MAT protocol Pulm consulted (4) Pneumonia Status: Acute Assessment & Plan: Bilateral Continue Zosyn Blood cultures- NGTD (5) Acute renal insufficiency Status: Resolved Assessment & Plan: Ambulatory Service Representative 1.29 from 1.9 on admission SVETA MAIN MD Oct 26, 2017 7:58 am
[2017-10-26] MEDS: RT-ALBUTEROL/IPRATROPIUM 3 ML (DUONEB) VIAL INH PRN (08:16)
--- NOTE | 2017-10-26 08:16 | Diagnostic Imaging Report ---
Indication: Lower respiratory infection EXAMINATION: Portable chest at 5:08 AM There are postop changes from CABG surgery. There are bilateral alveolar infiltrates. These are similar in appearance to the previous day on the right and there's been slight interval improvement on left. There is no effusion. IMPRESSION: Bilateral perihilar alveolar infiltrates have shown some improvement on the left since the previous day. Dictated by: Dictated on workstation # [id number]
[2017-10-26] MEDS: OMEGA 3 (FISH OIL) 1000 MG CAP PO SCH ×2 (08:21→21:16)
[2017-10-26] MEDS: lisINopril 5 MG (PRINIVIL) TABLET PO SCH (08:21)
[2017-10-26] MEDS: CLOPIDOGREL 75 MG (PLAVIX) TABLET PO SCH (08:21)
[2017-10-26] MEDS: GABAPENTIN 300 MG (NEURONTIN) CAP PO SCH ×3 (08:22→21:17)
[2017-10-26] MEDS: PANTOPRAZOLE 20 MG TABLET (PROTONIX) PO SCH ×2 (08:22→21:16)
[2017-10-26] MEDS: DILTIAZEM 120 MG (CARDIZEM CD) CAP PO SCH (08:22)
[2017-10-26] MEDS: ASPIRIN 81 MG CHEW (CHILDREN'S ASA) PO SCH (08:22)
[2017-10-26] MEDS: inSUlin DETERMIR 1 UNIT/0.01 ML (LEVEMIR) CHARGE PER UNIT SQ SCH ×2 (08:23→21:16)
[2017-10-26] MEDS: ENOXAPARIN 100 MG/1 ML (LOVENOX) SYR SC SCH (08:23)
[2017-10-26] MEDS: guaiFENesin (MUCINEX) 600 MG TAB PO SCH ×2 (08:30→21:16)
[2017-10-26] MEDS ORDERED: INFLUENZA TRIvalent 2017-2018 0.5 ML/45 MCG SYR IM ONE (10:30)
[2017-10-26] MEDS ORDERED: LISI10TA2 PO (10:36)
[2017-10-26] MEDS ORDERED: ROSU40TA PO (10:36)
[2017-10-26] MEDS ORDERED: FISH1CAP15 PO ×2 (10:36)
[2017-10-26] MEDS ORDERED: METO-333 PO (10:36)
[2017-10-26] MEDS ORDERED: RIVA20TA PO (10:36)
[2017-10-26] MEDS ORDERED: TRAZ-28 PO (10:36)
[2017-10-26] MEDS ORDERED: FERR324T4 PO (10:36)
[2017-10-26] MEDS ORDERED: LEVO25TA5 PO (10:36)
[2017-10-26] MEDS ORDERED: CHOL500049 PO (10:36)
[2017-10-26] MEDS ORDERED: AMIO200T2 PO (10:36)
--- NOTE | 2017-10-26 13:43 | Cardiology Progress Note ---
Cardiology SOAP Progress Note Subjective: according to the patient he feels better than yesterday. Objective: I&O/Vital Signs Vital Sign - Last 12Hours 10/26/17 10/26/17 10/26/17 10/26/17 02:00 03:00 04:00 04:00 Temp 97.3 Pulse 80 78 73 Resp 25 24 23 B/P (MAP) 121/63 (82) 129/73 (91) 133/70 (91) Pulse Ox 94 91 91 O2 Delivery Nasal Cannula Nasal Cannula Nasal Cannula Nasal Cannula O2 Flow Rate 2.00 2.00 2.00 2.00 10/26/17 10/26/17 10/26/17 10/26/17 05:00 06:00 07:00 07:00 Pulse 86 75 72 72 Resp 23 24 21 B/P (MAP) 118/94 (102) 137/68 (91) Pulse Ox 92 91 93 O2 Delivery Nasal Cannula Nasal Cannula Nasal Cannula O2 Flow Rate 2.00 2.00 2.00 10/26/17 10/26/17 10/26/17 10/26/17 07:23 07:28 07:45 08:16 Pulse Ox 93 98 91 O2 Delivery Nasal Cannula Nasal Cannula Nasal Cannula Nasal Cannula O2 Flow Rate 1.00 1.00 2.00 2.00 10/26/17 10/26/17 10/26/17 10/26/17 08:25 09:00 10:00 10:42 Temp 97.4 Pulse 95 87 Resp 23 24 B/P (MAP) 117/70 (86) 129/89 (102) Pulse Ox 93 92 93 O2 Delivery Nasal Cannula Nasal Cannula Nasal Cannula Nasal Cannula O2 Flow Rate 2.00 2.00 2.00 2.00 10/26/17 10/26/17 10/26/17 11:00 11:09 11:09 Temp 98.6 Pulse 101 Resp 19 B/P (MAP) 150/81 (104) Pulse Ox 92 O2 Delivery Nasal Cannula Nasal Cannula Nasal Cannula O2 Flow Rate 2.00 2.00 2.00 Intake and Output 10/26/17 00:00 Intake Total 1400 ml Output Total 1450 ml Balance -50 ml Weight (Pounds): 207 Weight (Ounces): 14.4 Weight (Calculated Kilograms): 94.999948 Constitutional: No appears stated age, AAO x 3, apparent distress, No PERRL, well-developed, No well-nourished, No other Respiratory: wheezing Cardiovascular: No regular rate-rhythm, irregularly irregular, No extra beats, No parasternal heave is noted, No JVD, No edema, No bradycardia, No tachycardia , No point of maximal impulse, No cardiac thrills are palpable, S1 and S2, No gallop/S3, No gallop/S4, No diastolic murmur, No systolic murmur, No friction rub, No click, No other Gastrointestional: No tender, No soft, No round, No distended, No pulsatile mass, No organomegaly, No guarding, No rebound, No tenderness, No hernia, No mass, No audible bowel sounds, No abnormal bowel sounds, No abdominal bruits, No spleenomegaly, No other Extremities: No normal range of motion, No non-tender, No normal inspection, No pedal edema, No calf tenderness, No normal capillary refill, No pelvis stable , No calf tenderness, No inflammation, No pedal edema, No slow capillary refill , No swelling, No other, No abrasion, No clubbing, No cyanosis, No ecchymosis, No laceration, No no lower extremity edema bilateral, No significant edema, No tenderness, No wound Neurologic/Psychiatric: No hospital admissions officer II-XII nml as tested, No no motor/sensory deficits, No alert, No normal mood/affect, No oriented x 3, No abnormal cerebellar tests, No abnormal hospital admissions officer II-XII, No abnormal gait, No aphasia, No EOM palsy, No facial droop, No motor weakness, No sensory deficit, No depressed affect, No disoriented x 3, No other, No grossly intact, No power is 5/5 both on sides Skin: No normal color, No warm/dry, No cyanosis, No cool, No diaphoresis, No damp, No ecchymosis, No jaundice, No mottled, No pallor, No rash, No tattoos/ piercings, No ulcerations, No rash on exposed areas, No ulcerations on exposed areas, No other Results/Procedures: Labs Laboratory Tests 10/25/17 16:52: Glucometer 145H 10/25/17 21:09: Glucometer 362H 10/26/17 05:05: White Blood Count 16.4H, Red Blood Count 4.55, Hemoglobin 13.6, Hematocrit 41, Mean Corpuscular Volume 90, Mean Corpuscular Hemoglobin 30, Mean Corpuscular Hemoglobin Concent 33, Red Cell Distribution Width 18.3H, Platelet Count 121L, Mean Platelet Volume , Neutrophils (%) (Auto) 93H, Lymphocytes (%) (Auto) 3L, Monocytes (%) (Auto) 5, Eosinophils (%) (Auto) 0, Basophils (%) (Auto) 0, Neutrophils # (Auto) 15.2H, Lymphocytes # (Auto) 0.5L, Monocytes # (Auto) 0.7, Eosinophils # (Auto) 0.0, Basophils # (Auto) 0.0, Sodium Level 144, Potassium Level 4.0, Chloride Level 109H, Carbon Dioxide Level 22, Anion Gap 13, Blood Urea Nitrogen 38H, Creatinine 1.29, Estimat Glomerular Filtration Rate 56, BUN/ Creatinine Ratio 29, Glucose Level 82, Calcium Level 8.6, Phosphorus Level 2.9, Magnesium Level 2.2 10/26/17 11:08: Glucometer 133H Microbiology 10/23/17 Blood Culture - Preliminary, Resulted No growth 10/24/17 Gram Stain - Final, Complete 10/24/17 Sputum Culture - Final, Complete Usual/normal tawnya isolated. A/P: Assessment/Dx: Shortness of breath, pneumonia, COPD exacerbation, Sleep apnea, Acute on chronic kidney disease, Paroxysmal atrial fibrillation, PAD, hyperlipidemia Plan: Shortness of breath, pneumonia: Defer to primary team. On IV antibiotics. COPD exacerbation, Sleep apnea, on CPAP. Acute on chronic kidney disease, continue to follow clinically. Paroxysmal atrial fibrillation: in atrial fibrillation currently. Continue Cardizem and Xarelto. Hold off beta claire due to wheezing. Elevated heart rate likely secondary to COPD. DC digoxin. PAD: on plavix. Hyperlipidemia: on statin Thank you for your consultation. Please call me if you have any questions. Dmitry Mas MD, FACP, FACC, FSCAI, FHRS, CCDS Interventional Cardiology Cardiac Electrophysiology Vascular Medicine and Endovascular Interventions Oneil MAS MD Oct 26, 2017 1:43 pm
[2017-10-26] MEDS ORDERED: guaiFENesin/CODEINE (ROBITUSSIN AC) 10ML UDC PO PRN (14:15)
[2017-10-26] MEDS: RIVAROXABAN 20 MG TABLET (XARELTO) PO SCH (16:15)
[2017-10-26] MEDS: SIMvastatin 10 MG (ZOCOR) TAB PO SCH (21:16)
[2017-10-26] MEDS: traZODone 50 MG (DESYREL) TAB PO SCH (21:17)
[2017-10-27] VITALS (29 sets, daily range): BP systolic 100–148; BP diastolic 55–99
[2017-10-27] MEDS: RT-ALBUTEROL/IPRATROPIUM 3 ML (DUONEB) VIAL INH SCH ×6 (02:50→21:47)
[2017-10-27] MEDS: PIPERACILLIN/TAZOBACTAM 4.5 GM/D5W 100 ML IVPB IV SCH ×6 (04:38→20:25)
--- NOTE | 2017-10-27 04:47 | Pulmonary Progress Note ---
Subjective Time Seen by Provider: 04:45 Subjective/Events-last exam Pt is doing slightly better. Exam Exam Vital Signs Date Time Temp Pulse Resp B/P (MAP) Pulse Ox O2 Delivery O2 Flow Rate FiO2 10/27/17 04:00 70 13 109/55 (73) 96 NIV Bilevel 35.00 10/27/17 03:00 73 15 132/70 (90) 94 NIV Bilevel 35.00 10/27/17 02:00 73 18 125/74 (91) 94 NIV Bilevel 35.00 10/27/17 01:00 74 10/27/17 01:00 74 22 118/65 (82) 98 NIV Bilevel 35.00 10/27/17 00:46 68 16 94 35.00 10/27/17 00:00 71 16 101/71 (81) 96 NIV Bilevel 35.00 10/27/17 00:00 NIV Bilevel 35 10/26/17 23:00 73 17 131/66 (87) 94 NIV Bilevel 35.00 10/26/17 23:00 78 17 94 35.00 10/26/17 22:00 89 22 134/70 (91) 95 NIV Bilevel 35.00 10/26/17 21:00 78 29 142/83 (102) 97 NIV Bilevel 35.00 10/26/17 20:00 NIV Bilevel 35 10/26/17 20:00 79 22 131/76 (94) 97 NIV Bilevel 35.00 10/26/17 19:00 100 10/26/17 19:00 99.2 NIV Bilevel 35.00 10/26/17 19:00 100 24 140/71 (94) 97 NIV Bilevel 35.00 10/26/17 18:53 89 26 95 35.00 10/26/17 18:00 83 21 102/60 (74) 95 Nasal Cannula 2.00 10/26/17 17:00 80 27 127/73 (91) 96 Nasal Cannula 2.00 10/26/17 16:11 97 34 91 35.00 10/26/17 16:00 95 25 130/80 (97) 94 Nasal Cannula 2.00 10/26/17 16:00 Nasal Cannula 2.00 10/26/17 15:58 97.9 Nasal Cannula 2.00 10/26/17 15:00 107 23 125/72 (89) 89 Nasal Cannula 2.00 10/26/17 14:46 94 Nasal Cannula 2.00 10/26/17 14:00 114 25 121/63 (82) 90 Nasal Cannula 2.00 10/26/17 13:00 96 24 102/65 (77) 90 Nasal Cannula 2.00 10/26/17 13:00 96 10/26/17 12:00 126 36 115/83 (94) 92 Nasal Cannula 2.00 10/26/17 11:09 98.6 Nasal Cannula 2.00 10/26/17 11:09 Nasal Cannula 2.00 10/26/17 11:00 101 19 150/81 (104) 92 Nasal Cannula 2.00 10/26/17 10:42 93 Nasal Cannula 2.00 10/26/17 10:00 87 24 129/89 (102) 92 Nasal Cannula 2.00 10/26/17 09:00 95 23 117/70 (86) 93 Nasal Cannula 2.00 10/26/17 08:25 97.4 Nasal Cannula 2.00 10/26/17 08:16 91 Nasal Cannula 2.00 10/26/17 07:45 Nasal Cannula 2.00 10/26/17 07:28 98 Nasal Cannula 1.00 10/26/17 07:23 93 Nasal Cannula 1.00 10/26/17 07:00 72 10/26/17 07:00 72 21 137/68 (91) 93 Nasal Cannula 2.00 10/26/17 06:00 75 24 118/94 (102) 91 Nasal Cannula 2.00 10/26/17 05:00 86 23 92 Nasal Cannula 2.00 I & O 10/27/17 07:00 Intake Total 2440 ml Output Total 2025 ml Balance 415 ml General Appearance: WD/WN, Mild Distress HEENT: PERRL/EOMI, Normal ENT Inspection, Pharynx Normal Neck: Full Range of Motion, Normal Inspection, Non Tender, Supple, Carotid Bruit Respiratory: Accessory Muscle Use, Wheezing Cardiovascular: No Murmur, Irregularly Irregular Capillary Refill: Less Than 3 Seconds Gastrointestinal: normal bowel sounds, non tender, soft Extremity: No Calf Tenderness, No Pedal Edema Neurologic/Psychiatric: Alert, Oriented x3 Skin: Normal Color, Warm/Dry Lymphatic: No Adenopathy Results Lab Laboratory Tests 10/26/17 05:05 Assessment/Plan Assessment/Plan Acute respiratory failure -BiPAP PRN -Hep lock IVF - Give another 40mg of IV lasix -DuoNeb with pulmicare COPDAE - pt does not have home 02 -SVNs -BiPAP PRN -Oxygen - solumedrol IV Q6 Pulmary edema -Repeat lasix Afib -IVF -Cardiology following Acute renal failure -IVF -Monitor Sleep apea 233 Clinical Quality Measures DVT/VTE Risk/Contraindication: Risk Factor Score Per Nursin RFS Level Per Nursing on Admit: 4+=Very High NERY ALANIS DO Oct 27, 2017 04:47
[2017-10-27 05:08] LABS: BASOPHILS % (AUTO) 0 % (0-10); EOSINOPHILS % (AUTO) 0 % (0-10); HEMATOCRIT 43 % (40-54); HEMOGLOBIN 14.3 G/DL (13.3-17.7); LYMPHOCYTES # (AUTO) 0.6 X 10^3 (1.0-4.0); LYMPHOCYTES % (AUTO) 3 % (12-44); MEAN CORPUSCULAR HEMOGLOBIN 30 PG (25-34); MEAN CORPUSCULAR HGB CONC 33 G/DL (32-36); MEAN CORPUSCULAR VOLUME 90 FL (80-99); MONOCYTES # (AUTO) 0.7 X 10^3 (0.0-1.0); MONOCYTES % (AUTO) 4 % (0-12); NEUTROPHILS # (AUTO) 16.3 X 10^3 (1.8-7.8); NEUTROPHILS % (AUTO) 93 % (42-75); PLATELET COUNT 152 10^3/uL (130-400); RED BLOOD COUNT 4.76 10^6/uL (4.35-5.85); RED CELL DISTRIBUTION WIDTH 18.6 % (10.0-14.5); WHITE BLOOD COUNT 17.6 10^3/uL (4.3-11.0)
[2017-10-27 05:25] LABS: ANISOCYTOSIS SLIGHT; BAND NEUTROPHILS 2 %; BASOPHILS % (MANUAL) 0 %; ELLIPT/OVALOCYTES SLIGHT; EOSINOPHILS % (MANUAL) 0 %; LYMPHOCYTES % (MANUAL) 3 %; MONOCYTES % (MANUAL) 5 %; NEUTROPHILS % (MANUAL) 90 %; TOXIC GRANULATION/VACUOLAZATIO 1+
[2017-10-27 05:26] LABS: CALCIUM 9.1 MG/DL (8.5-10.1); CREATININE SERUM 1.26 MG/DL (0.60-1.30); MAGNESIUM 2.3 MG/DL (1.8-2.4); PHOSPHORUS 3.8 MG/DL (2.3-4.7); POTASSIUM 4.3 MMOL/L (3.6-5.0)
[2017-10-27] MEDS: inSUlin (REGULAR) HUMAN 1 UNIT/0.01 ML (CHARGE PER UNIT) SC SCH ×4 (05:36→21:30)
[2017-10-27] MEDS: methylPREDNISolone 40 MG/ML (Solu-MEDROL) VIAL IV SCH ×3 (05:59→18:25)
[2017-10-27] MEDS ORDERED: MAGNESIUM 1 GM/100 ML IVPB 100 ML IV SCH (06:00)
[2017-10-27] MEDS: LEVOTHYROXINE 25 MCG (LEVOTHROID) TAB PO SCH (06:00)
[2017-10-27] MEDS ORDERED: KCL 20 MEQ TAB (K-DUR) PO SCH (06:00)
[2017-10-27] MEDS ORDERED: POTASSIUM CL 10MEQ/50ML IVPB 50 ML IV SCH (06:00)
[2017-10-27] MEDS: RT-BUDESONIDE NEBS 0.5 MG/2ML (PULMICORT) AMP INH SCH ×2 (06:57→19:50)
[2017-10-27] MEDS: ASPIRIN 81 MG CHEW (CHILDREN'S ASA) PO SCH ×2 (08:35→09:19)
[2017-10-27] MEDS: CLOPIDOGREL 75 MG (PLAVIX) TABLET PO SCH (08:36)
[2017-10-27] MEDS: DILTIAZEM 120 MG (CARDIZEM CD) CAP PO SCH (08:36)
[2017-10-27] MEDS: lisINopril 5 MG (PRINIVIL) TABLET PO SCH (08:36)
[2017-10-27] MEDS: PANTOPRAZOLE 20 MG TABLET (PROTONIX) PO SCH ×2 (08:36→21:30)
[2017-10-27] MEDS: OMEGA 3 (FISH OIL) 1000 MG CAP PO SCH ×2 (08:36→21:30)
--- NOTE | 2017-10-27 08:36 | Progress Note-Hospitalist ---
Subjective HPI/CC On Admission Date Seen by Provider: Oct 27, 2017 Time Seen by Provider: 08:15 CC: Pneumonia with cough with AF w/RVR HPI: This is a 67-year-old white male [facility] patient [facility] [place] and Dr. Medrano cardiology who presents to the ICU after presenting to the ER with cough and fever. Patient was found to have pneumonia, exacerbation of COPD, acute on chronic renal failure with creatinine of 1.9 and atrial fibrillation with rapid ventricular rate so he was placed on biPAP. He was placed on Cardizem empirically along with antibiotics after schultz cultured with influenza result of negative. He has since converted to normal sinus rhythm as of 8 o' clock this morning and feels much better but overall very weak and still coughing. He is a DO NOT RESUSCITATE which is reasonable considering so many complex medical issues at such a young age [age] years old. He does wear sleep apnea machine at home but does not use oxygen. He does still smoke. Subjective/Events-last exam Pt reports feeling better this morning. On BiPAP. No complaints. Objective Exam Vital Signs Vital Sign - Last 12Hours 10/23/17 10/23/17 10/23/17 20:26 22:25 23:53 Temp 97.6 Pulse 105 Resp 26 B/P (MAP) 136/78 (97) Pulse Ox 94 O2 Delivery Room Air O2 Flow Rate 40.00 FiO2 30 Capillary Refill : Less Than 3 Seconds General Appearance: No Apparent Distress, WD/WN Respiratory: No Accessory Muscle Use, Wheezing Cardiovascular: Regular Rate, Rhythm, No Murmur Gastrointestinal: Normal Bowel Sounds, Non Tender, Soft Extremity: No Calf Tenderness, No Pedal Edema Neurologic/Psychiatric: Alert, Oriented x3 Results/Procedures Lab Laboratory Tests 10/27/17 04:45 Assessment/Plan Assessment and Plan Assess & Plan/Chief Complaint acute respiratory failure Diagnosis/Problems Diagnosis/Problems (1) Acute respiratory distress Status: Acute Assessment & Plan: On BiPAP- tolerating well Lasix ordered MAT protocol Pulm consulted, appreciate recs (2) Atrial fibrillation with rapid ventricular response Status: Acute Assessment & Plan: On presentation, now RVR resolved Cardiology consulted, appreciate recs On Diltiazem Off digoxin Back on Xarelto (3) COPD exacerbation Status: Acute Assessment & Plan: Continue steroids, MAT protocol Pulm consulted (4) Pneumonia Status: Acute Assessment & Plan: Bilateral Continue Zosyn Blood cultures- NGTD (5) Acute renal insufficiency Status: Resolved Assessment & Plan: Clinical Trainer 1.26 from 1.9 on admission SVETA MAIN MD Oct 27, 2017 8:36 am
[2017-10-27] MEDS: inSUlin DETERMIR 1 UNIT/0.01 ML (LEVEMIR) CHARGE PER UNIT SQ SCH ×2 (08:37→21:31)
[2017-10-27] MEDS: guaiFENesin (MUCINEX) 600 MG TAB PO SCH ×2 (08:42→21:30)
[2017-10-27] MEDS: GABAPENTIN 300 MG (NEURONTIN) CAP PO SCH ×3 (08:42→21:30)
--- NOTE | 2017-10-27 08:58 | Diagnostic Imaging Report ---
EXAMINATION: Portable erect AP chest obtained at 426h. INDICATION: Pneumonia The cardiomegaly and the diffuse alveolar/interstitial pulmonary infiltrates involving both lungs seen on the prior exam of 10/26/17 are again visualized. Both lungs do seem somewhat better aerated. The lung bases remain clear. The mediastinum is not widened. The osseous structures are intact. The large hiatal hernia seen previously is again evident and no different. The sternotomy wires and surgical clips seen on the prior study are again identified. IMPRESSION: The appearance of the chest has improved as the lungs do seem better aerated. However there are still diffuse alveolar/interstitial, pulmonary infiltrates bilaterally. A followup study would be recommended for continued evaluation. Dictated by: Dictated on workstation # [id number]
[2017-10-27] MEDS ORDERED: FUROSEMIDE 40 MG/4 ML INJ (LASIX) IVP SCH (09:00)
--- NOTE | 2017-10-27 12:25 | Cardiology Progress Note ---
Cardiology SOAP Progress Note Subjective: continues to be in respiratory distress. Objective: I&O/Vital Signs Vital Sign - Last 12Hours 10/27/17 10/27/17 10/27/17 10/27/17 00:46 01:00 01:00 02:00 Pulse 68 74 74 73 Resp 16 22 18 B/P (MAP) 118/65 (82) 125/74 (91) Pulse Ox 94 98 94 O2 Delivery NIV Bilevel NIV Bilevel O2 Flow Rate 35.00 35.00 35.00 10/27/17 10/27/17 10/27/17 10/27/17 02:50 03:00 04:00 04:00 Pulse 86 73 70 Resp 22 15 13 B/P (MAP) 132/70 (90) 109/55 (73) Pulse Ox 95 94 96 O2 Delivery NIV Bilevel NIV Bilevel NIV Bilevel O2 Flow Rate 35.00 35.00 35.00 FiO2 35 10/27/17 10/27/17 10/27/17 10/27/17 05:00 06:00 06:20 06:26 Pulse 71 85 Resp 22 21 B/P (MAP) 132/75 (94) 143/77 (99) Pulse Ox 94 97 O2 Delivery NIV Bilevel NIV Bilevel Nasal Cannula NIV Bilevel O2 Flow Rate 35.00 35.00 3.00 35.00 10/27/17 10/27/17 10/27/17 10/27/17 06:58 07:00 07:00 08:00 Pulse 73 73 72 Resp 17 20 B/P (MAP) 128/83 (98) Pulse Ox 96 96 O2 Delivery NIV Bilevel NIV Bilevel O2 Flow Rate 35.00 35.00 FiO2 35 10/27/17 10/27/17 10/27/17 10/27/17 08:00 08:00 08:58 09:00 Temp 97.5 Pulse 75 101 98 Resp 20 25 23 B/P (MAP) 125/77 (93) 118/99 (105) Pulse Ox 96 97 94 O2 Delivery NIV Bilevel NIV Bilevel O2 Flow Rate 35.00 35.00 35.00 10/27/17 10/27/17 11:10 12:00 Pulse 75 Resp 15 Pulse Ox 98 O2 Delivery NIV Bilevel O2 Flow Rate 35.00 FiO2 35 Intake and Output 10/27/17 00:00 Intake Total 1190 ml Output Total 775 ml Balance 415 ml Weight (Pounds): 207 Weight (Ounces): 3.0 Weight (Calculated Kilograms): 93.095126 Constitutional: No appears stated age, AAO x 3, apparent distress, No PERRL, well-developed, No well-nourished, No other Respiratory: wheezing Cardiovascular: No regular rate-rhythm, irregularly irregular, No extra beats, No parasternal heave is noted, No JVD, No edema, No bradycardia, No tachycardia , No point of maximal impulse, No cardiac thrills are palpable, S1 and S2, No gallop/S3, No gallop/S4, No diastolic murmur, No systolic murmur, No friction rub, No click, No other Gastrointestional: No tender, No soft, No round, No distended, No pulsatile mass, No organomegaly, No guarding, No rebound, No tenderness, No hernia, No mass, No audible bowel sounds, No abnormal bowel sounds, No abdominal bruits, No spleenomegaly, No other Extremities: No normal range of motion, No non-tender, No normal inspection, No pedal edema, No calf tenderness, No normal capillary refill, No pelvis stable , No calf tenderness, No inflammation, No pedal edema, No slow capillary refill , No swelling, No other, No abrasion, No clubbing, No cyanosis, No ecchymosis, No laceration, No no lower extremity edema bilateral, No significant edema, No tenderness, No wound Neurologic/Psychiatric: No box brander II-XII nml as tested, No no motor/sensory deficits, No alert, No normal mood/affect, No oriented x 3, No abnormal cerebellar tests, No abnormal box brander II-XII, No abnormal gait, No aphasia, No EOM palsy, No facial droop, No motor weakness, No sensory deficit, No depressed affect, No disoriented x 3, No other, No grossly intact, No power is 5/5 both on sides Skin: No normal color, No warm/dry, No cyanosis, No cool, No diaphoresis, No damp, No ecchymosis, No jaundice, No mottled, No pallor, No rash, No tattoos/ piercings, No ulcerations, No rash on exposed areas, No ulcerations on exposed areas, No other Results/Procedures: Labs Laboratory Tests 10/26/17 16:05: Glucometer 300H 10/26/17 20:41: Glucometer 163H 10/27/17 04:45: White Blood Count 17.6H, Red Blood Count 4.76, Hemoglobin 14.3, Hematocrit 43, Mean Corpuscular Volume 90, Mean Corpuscular Hemoglobin 30, Mean Corpuscular Hemoglobin Concent 33, Red Cell Distribution Width 18.6H, Platelet Count 152, Mean Platelet Volume , Neutrophils (%) (Auto) 93H, Lymphocytes (%) (Auto) 3L, Monocytes (%) (Auto) 4, Eosinophils (%) (Auto) 0, Basophils (%) (Auto) 0, Neutrophils # (Auto) 16.3H, Lymphocytes # (Auto) 0.6L, Monocytes # (Auto) 0.7, Eosinophils # (Auto) 0.0, Basophils # (Auto) 0.0, Neutrophils % (Manual) 90, Lymphocytes % (Manual) 3, Monocytes % (Manual) 5, Eosinophils % (Manual) 0, Basophils % (Manual) 0, Band Neutrophils 2, Toxic Granulation 1+, Anisocytosis SLIGHT, Elliptocytes SLIGHT, Sodium Level 141, Potassium Level 4.3, Chloride Level 106, Carbon Dioxide Level 25, Anion Gap 10, Blood Urea Nitrogen 38H, Creatinine 1.26, Estimat Glomerular Filtration Rate 57, BUN/Creatinine Ratio 30 , Glucose Level 117H, Calcium Level 9.1, Phosphorus Level 3.8, Magnesium Level 2.3 10/27/17 11:37: Glucometer 102 Microbiology 10/23/17 Blood Culture - Preliminary, Resulted No growth 10/24/17 Gram Stain - Final, Complete 10/24/17 Sputum Culture - Final, Complete Usual/normal tawnya isolated. A/P: Assessment/Dx: Shortness of breath, pneumonia, COPD exacerbation, Sleep apnea, Acute on chronic kidney disease, Paroxysmal atrial fibrillation, PAD, hyperlipidemia Plan: Shortness of breath, pneumonia: Defer to primary team. On IV antibiotics. COPD exacerbation, still wheezing. Sleep apnea, on CPAP. Acute on chronic kidney disease, continue to follow clinically. Paroxysmal atrial fibrillation: in atrial fibrillation currently. Continue Cardizem and Xarelto. Hold off beta claire due to wheezing. Elevated heart rate likely secondary to COPD. DC digoxin. PAD: on plavix. Hyperlipidemia: on statin Thank you for your consultation. Please call me if you have any questions. Dmitry Mas MD, FACP, FACC, FSCAI, FHRS, CCDS Interventional Cardiology Cardiac Electrophysiology Vascular Medicine and Endovascular Interventions Oneil MAS MD Oct 27, 2017 12:25 pm
[2017-10-27] MEDS: RIVAROXABAN 20 MG TABLET (XARELTO) PO SCH (16:37)
[2017-10-27] MEDS: traZODone 50 MG (DESYREL) TAB PO SCH (21:30)
[2017-10-27] MEDS: SIMvastatin 10 MG (ZOCOR) TAB PO SCH (21:30)
[2017-10-28] VITALS (16 sets, daily range): BP systolic 119–147; BP diastolic 55–87
[2017-10-28] MEDS: methylPREDNISolone 40 MG/ML (Solu-MEDROL) VIAL IV SCH ×4 (01:03→17:46)
[2017-10-28] MEDS: RT-ALBUTEROL/IPRATROPIUM 3 ML (DUONEB) VIAL INH SCH ×4 (02:18→15:30)
[2017-10-28] MEDS: PIPERACILLIN/TAZOBACTAM 4.5 GM/D5W 100 ML IVPB IV SCH ×4 (03:59→11:12)
[2017-10-28 06:00] LABS: BASOPHILS % (AUTO) 0 % (0-10); EOSINOPHILS % (AUTO) 0 % (0-10); HEMATOCRIT 43 % (40-54); HEMOGLOBIN 14.2 G/DL (13.3-17.7); LYMPHOCYTES # (AUTO) 0.4 X 10^3 (1.0-4.0); LYMPHOCYTES % (AUTO) 2 % (12-44); MEAN CORPUSCULAR HEMOGLOBIN 30 PG (25-34); MEAN CORPUSCULAR HGB CONC 33 G/DL (32-36); MEAN CORPUSCULAR VOLUME 90 FL (80-99); MEAN PLATELET VOLUME 12.7 FL (7.4-10.4); MONOCYTES # (AUTO) 0.8 X 10^3 (0.0-1.0); MONOCYTES % (AUTO) 5 % (0-12); NEUTROPHILS # (AUTO) 14.9 X 10^3 (1.8-7.8); NEUTROPHILS % (AUTO) 93 % (42-75); PLATELET COUNT 179 10^3/uL (130-400); RED BLOOD COUNT 4.78 10^6/uL (4.35-5.85); RED CELL DISTRIBUTION WIDTH 18.4 % (10.0-14.5); WHITE BLOOD COUNT 16.1 10^3/uL (4.3-11.0)
[2017-10-28 06:22] LABS: CALCIUM 8.8 MG/DL (8.5-10.1); CREATININE SERUM 1.47 MG/DL (0.60-1.30); MAGNESIUM 2.4 MG/DL (1.8-2.4); PHOSPHORUS 3.8 MG/DL (2.3-4.7); POTASSIUM 4.2 MMOL/L (3.6-5.0)
--- NOTE | 2017-10-28 06:36 | Pulmonary Progress Note ---
Subjective Time Seen by Provider: 06:41 Subjective/Events-last exam pt is currently on BiPAP however he is requiring less oxygen. Exam Exam Vital Signs Date Time Temp Pulse Resp B/P (MAP) Pulse Ox O2 Delivery O2 Flow Rate FiO2 10/28/17 06:00 73 15 127/73 (91) 96 NIV Bilevel 35.00 10/28/17 05:00 71 20 136/77 (96) 96 NIV Bilevel 35.00 10/28/17 04:32 97.9 NIV Bilevel 35.00 10/28/17 04:10 72 30 97 35.00 10/28/17 04:00 NIV Bilevel 35 10/28/17 04:00 73 16 147/87 (107) 98 NIV Bilevel 35.00 10/28/17 03:00 78 10 141/72 (95) 91 NIV Bilevel 35.00 10/28/17 02:20 75 24 98 35.00 10/28/17 02:00 70 18 119/69 (86) 97 NIV Bilevel 35.00 10/28/17 01:05 97.7 NIV Bilevel 35.00 10/28/17 01:03 74 10/28/17 01:00 83 22 132/76 (94) 95 NIV Bilevel 35.00 10/28/17 00:00 NIV Bilevel 35 10/28/17 00:00 93 21 133/81 (98) 96 NIV Bilevel 35.00 10/27/17 23:00 98 16 120/62 (81) 97 NIV Bilevel 35.00 10/27/17 22:44 NIV Bilevel 35.00 10/27/17 22:00 82 22 130/71 (90) 94 Nasal Cannula 5.00 10/27/17 21:48 94 Nasal Cannula 5.00 10/27/17 21:00 77 21 127/68 (87) 94 Nasal Cannula 5.00 10/27/17 20:00 96 19 126/80 (95) 96 Nasal Cannula 5.00 10/27/17 20:00 Nasal Cannula 5.00 10/27/17 19:54 89 10/27/17 19:51 94 Nasal Cannula 5.00 10/27/17 19:20 97.2 Nasal Cannula 5.00 10/27/17 19:00 76 19 125/71 (89) Nasal Cannula 5.00 10/27/17 18:00 74 28 129/78 (95) 92 NIV Bilevel 35.00 10/27/17 17:00 75 15 120/76 (91) 95 NIV Bilevel 35.00 10/27/17 16:00 NIV Bilevel 35 10/27/17 16:00 75 15 122/75 (91) 95 NIV Bilevel 35.00 10/27/17 16:00 97.6 10/27/17 15:00 75 18 124/74 (91) 96 NIV Bilevel 35.00 10/27/17 14:26 75 24 96 35.00 10/27/17 14:00 73 15 131/82 (98) 96 NIV Bilevel 35.00 10/27/17 13:00 74 16 100/56 (71) 96 NIV Bilevel 35.00 10/27/17 13:00 74 10/27/17 12:43 75 14 99 35.00 10/27/17 12:00 75 16 101/56 (71) 99 NIV Bilevel 35.00 10/27/17 12:00 97.6 10/27/17 12:00 NIV Bilevel 35 10/27/17 11:10 75 15 98 35.00 10/27/17 11:00 76 21 131/74 (93) 93 NIV Bilevel 35.00 10/27/17 10:00 79 19 133/85 (101) 95 NIV Bilevel 35.00 10/27/17 09:00 98 23 118/99 (105) 94 NIV Bilevel 35.00 10/27/17 08:58 101 25 97 35.00 10/27/17 08:00 75 20 125/77 (93) 96 NIV Bilevel 35.00 10/27/17 08:00 97.5 10/27/17 08:00 NIV Bilevel 35 10/27/17 07:00 72 10/27/17 07:00 73 20 128/83 (98) 96 NIV Bilevel 35.00 10/27/17 06:58 73 17 96 35.00 I & O 10/28/17 07:00 Intake Total 2375 ml Output Total 2250 ml Balance 125 ml General Appearance: No Apparent Distress, WD/WN HEENT: PERRL/EOMI, Normal ENT Inspection, Pharynx Normal Neck: Full Range of Motion, Normal Inspection, Non Tender, Supple, Carotid Bruit Respiratory: No Accessory Muscle Use, Wheezing Cardiovascular: Regular Rate, Rhythm, No Murmur Capillary Refill: Less Than 3 Seconds Gastrointestinal: normal bowel sounds, non tender, soft Extremity: No Calf Tenderness, No Pedal Edema Neurologic/Psychiatric: Alert, Oriented x3 Skin: Normal Color, Warm/Dry Lymphatic: No Adenopathy Results Lab Laboratory Tests 10/27/17 04:45 10/28/17 04:55 Assessment/Plan Assessment/Plan Acute respiratory failure -BiPAP PRN -HOLD lasix -DuoNeb with pulmicare COPDAE - pt does not have home 02 -SVNs -BiPAP PRN -Oxygen - solumedrol IV Q6 Acute renal failure -hold lasix and monitor Pulmary edema -Monitor Afib -IVF -Cardiology following Acute renal failure -IVF -Monitor Sleep apea -BiPAP QHS PT is doing better will transfer to [facility] with tele. 233 Clinical Quality Measures DVT/VTE Risk/Contraindication: Risk Factor Score Per Nursin RFS Level Per Nursing on Admit: 4+=Very High NERY ALANIS DO Oct 28, 2017 06:36
[2017-10-28] MEDS: inSUlin (REGULAR) HUMAN 1 UNIT/0.01 ML (CHARGE PER UNIT) SC SCH ×3 (07:00→16:52)
[2017-10-28] MEDS: LEVOTHYROXINE 25 MCG (LEVOTHROID) TAB PO SCH (07:00)
[2017-10-28] MEDS: RT-BUDESONIDE NEBS 0.5 MG/2ML (PULMICORT) AMP INH SCH (07:17)
--- NOTE | 2017-10-28 07:28 | Progress Note-Hospitalist ---
Subjective HPI/CC On Admission Date Seen by Provider: Oct 28, 2017 Time Seen by Provider: 07:10 CC: Pneumonia with cough with AF w/RVR HPI: This is a 67-year-old white male [facility] patient at [place] and Dr. Medrano cardiology who presents to the ICU after presenting to the ER with cough and fever. Patient was found to have pneumonia, exacerbation of COPD, acute on chronic renal failure with creatinine of 1.9 and atrial fibrillation with rapid ventricular rate so he was placed on biPAP. He was placed on Cardizem empirically along with antibiotics after schultz cultured with influenza result of negative. He has since converted to normal sinus rhythm as of 8 o' clock this morning and feels much better but overall very weak and still coughing. He is a DO NOT RESUSCITATE which is reasonable considering so many complex medical issues at such a young age [age] years old. He does wear sleep apnea machine at home but does not use oxygen. He does still smoke. Subjective/Events-last exam Pt reports feeling well. Breathing better. Still on BiPAP. Objective Exam Vital Signs Vital Signs Date Time Temp Pulse Resp B/P (MAP) Pulse Ox O2 Delivery O2 Flow Rate FiO2 10/23/17 20:26 97.6 105 26 136/78 (97) 94 Room Air 10/23/17 22:25 40.00 10/23/17 23:53 30 Capillary Refill : Less Than 3 Seconds General Appearance: No Apparent Distress, WD/WN Respiratory: No Accessory Muscle Use, No Respiratory Distress, Wheezing (scant) Cardiovascular: Normal Peripheral Pulses, Tachycardia Gastrointestinal: Normal Bowel Sounds, Non Tender, Soft Extremity: No Calf Tenderness, No Pedal Edema Neurologic/Psychiatric: Alert, Oriented x3 Results/Procedures Lab Laboratory Tests 10/28/17 04:55 Assessment/Plan Assessment and Plan Assess & Plan/Chief Complaint acute respiratory failure Diagnosis/Problems Diagnosis/Problems (1) Acute respiratory distress Status: Acute Assessment & Plan: On BiPAP MAT protocol Pulm consulted, appreciate recs (2) COPD exacerbation Status: Acute Assessment & Plan: Continue steroids, MAT protocol Pulm consulted (3) Pneumonia Status: Acute Assessment & Plan: Bilateral Continue Zosyn Blood cultures- NGTD (4) Atrial fibrillation with rapid ventricular response Status: Acute Assessment & Plan: On presentation, now RVR resolved Cardiology consulted, appreciate recs On Diltiazem Off digoxin Back on Xarelto Hold Lasix (5) Acute renal insufficiency Status: Resolved Assessment & Plan: Head Refrigerating Engineer 1.47 today from 1.9 on admission trending up today- hold SVETA Cox MD Oct 28, 2017 7:28 am
--- NOTE | 2017-10-28 08:08 | Diagnostic Imaging Report ---
INDICATION: Pneumonia. Comparison with 10/27/2017. FINDINGS: The lungs remain well-aerated. Mild interstitial prominence remains present bilaterally. There are no consolidated infiltrates. The heart is not enlarged. Median sternotomy changes are noted. There is no evidence of pneumothorax or pleural effusion. IMPRESSION: 1. Obstructive interstitial lung disease. No acute infiltrates are present. Dictated by: Dictated on workstation # [id number]
[2017-10-28] MEDS: CLOPIDOGREL 75 MG (PLAVIX) TABLET PO SCH (09:04)
[2017-10-28] MEDS: OMEGA 3 (FISH OIL) 1000 MG CAP PO SCH (09:04)
[2017-10-28] MEDS: lisINopril 5 MG (PRINIVIL) TABLET PO SCH (09:04)
[2017-10-28] MEDS: GABAPENTIN 300 MG (NEURONTIN) CAP PO SCH ×2 (09:04→13:38)
[2017-10-28] MEDS: DILTIAZEM 120 MG (CARDIZEM CD) CAP PO SCH (09:04)
[2017-10-28] MEDS: guaiFENesin (MUCINEX) 600 MG TAB PO SCH (09:04)
[2017-10-28] MEDS: PANTOPRAZOLE 20 MG TABLET (PROTONIX) PO SCH (09:04)
[2017-10-28] MEDS: inSUlin DETERMIR 1 UNIT/0.01 ML (LEVEMIR) CHARGE PER UNIT SQ SCH (09:05)
[2017-10-28] MEDS: ASPIRIN 81 MG CHEW (CHILDREN'S ASA) PO SCH (09:05)
[2017-10-28 10:35] LABS: BILIRUBIN,URINE NEGATIVE (NEGATIVE); CLARITY,URINE VERY CLOUDY; COLOR,URINE YELLOW; GLUCOSE, URINE (UA) 2+ (NEGATIVE); KETONES,URINE NEGATIVE (NEGATIVE); LEUKOCYTE ESTERASE ,URINE 1+ (NEGATIVE); NITRITE,URINE NEGATIVE (NEGATIVE); PH,URINE 6 (5-9); PROTEIN,URINE 2+ (NEGATIVE); UROBILINOGEN,URINE NORMAL (NORMAL)
--- NOTE | 2017-10-28 10:36 | Cardiology Progress Note ---
Cardiology SOAP Progress Note Subjective: Continues to have shortness of breath. Objective: I&O/Vital Signs Vital Sign - Last 12Hours 10/28/17 10/28/17 10/28/17 10/28/17 02:00 02:20 03:00 04:00 Pulse 70 75 78 73 Resp 18 24 10 16 B/P (MAP) 119/69 (86) 141/72 (95) 147/87 (107) Pulse Ox 97 98 91 98 O2 Delivery NIV Bilevel NIV Bilevel NIV Bilevel O2 Flow Rate 35.00 35.00 35.00 35.00 10/28/17 10/28/17 10/28/17 10/28/17 04:00 04:10 04:32 05:00 Temp 97.9 Pulse 72 71 Resp 30 20 B/P (MAP) 136/77 (96) Pulse Ox 97 96 O2 Delivery NIV Bilevel NIV Bilevel NIV Bilevel O2 Flow Rate 35.00 35.00 35.00 FiO2 35 10/28/17 10/28/17 10/28/17 10/28/17 06:00 07:00 07:00 07:17 Pulse 73 86 75 71 Resp 15 17 18 B/P (MAP) 127/73 (91) 140/86 (104) Pulse Ox 96 95 94 O2 Delivery NIV Bilevel NIV Bilevel O2 Flow Rate 35.00 35.00 25.00 10/28/17 10/28/17 10/28/17 10/28/17 07:26 08:00 08:00 08:30 Temp 97.3 Pulse 75 Resp 24 B/P (MAP) 127/55 (79) Pulse Ox 95 95 O2 Delivery NIV Bilevel NIV Bilevel NIV Bilevel O2 Flow Rate 35.00 FiO2 21 35 10/28/17 10/28/17 10/28/17 10/28/17 09:00 10:00 10:10 11:10 Temp 98.0 Pulse 88 75 78 Resp 11 25 20 B/P (MAP) 143/79 (100) 147/76 (99) 144/68 (93) Pulse Ox 90 92 96 O2 Delivery NIV Bilevel NIV Bilevel Nasal Cannula Nasal Cannula O2 Flow Rate 35.00 35.00 5.00 5.00 10/28/17 11:35 Pulse Ox 96 O2 Delivery Nasal Cannula O2 Flow Rate 5.00 Intake and Output 10/28/17 00:00 Intake Total 1775 ml Output Total 925 ml Balance 850 ml Weight (Pounds): 206 Weight (Ounces): 3.0 Weight (Calculated Kilograms): 93.020059 Constitutional: No appears stated age, AAO x 3, apparent distress, No PERRL, well-developed, No well-nourished, No other Respiratory: wheezing Cardiovascular: No regular rate-rhythm, irregularly irregular, No extra beats, No parasternal heave is noted, No JVD, No edema, No bradycardia, No tachycardia , No point of maximal impulse, No cardiac thrills are palpable, S1 and S2, No gallop/S3, No gallop/S4, No diastolic murmur, No systolic murmur, No friction rub, No click, No other Gastrointestional: No tender, No soft, No round, No distended, No pulsatile mass, No organomegaly, No guarding, No rebound, No tenderness, No hernia, No mass, No audible bowel sounds, No abnormal bowel sounds, No abdominal bruits, No spleenomegaly, No other Extremities: No normal range of motion, No non-tender, No normal inspection, No pedal edema, No calf tenderness, No normal capillary refill, No pelvis stable , No calf tenderness, No inflammation, No pedal edema, No slow capillary refill , No swelling, No other, No abrasion, No clubbing, No cyanosis, No ecchymosis, No laceration, No no lower extremity edema bilateral, No significant edema, No tenderness, No wound Neurologic/Psychiatric: No belt cleaner II-XII nml as tested, No no motor/sensory deficits, No alert, No normal mood/affect, No oriented x 3, No abnormal cerebellar tests, No abnormal belt cleaner II-XII, No abnormal gait, No aphasia, No EOM palsy, No facial droop, No motor weakness, No sensory deficit, No depressed affect, No disoriented x 3, No other, No grossly intact, No power is 5/5 both on sides Skin: No normal color, No warm/dry, No cyanosis, No cool, No diaphoresis, No damp, No ecchymosis, No jaundice, No mottled, No pallor, No rash, No tattoos/ piercings, No ulcerations, No rash on exposed areas, No ulcerations on exposed areas, No other Results/Procedures: Labs Laboratory Tests 10/27/17 16:31: Glucometer 101 10/28/17 04:55: White Blood Count 16.1H, Red Blood Count 4.78, Hemoglobin 14.2, Hematocrit 43, Mean Corpuscular Volume 90, Mean Corpuscular Hemoglobin 30, Mean Corpuscular Hemoglobin Concent 33, Red Cell Distribution Width 18.4H, Platelet Count 179, Mean Platelet Volume 12.7H, Neutrophils (%) (Auto) 93H, Lymphocytes (%) (Auto) 2L, Monocytes (%) (Auto) 5, Eosinophils (%) (Auto) 0, Basophils (%) (Auto) 0, Neutrophils # (Auto) 14.9H, Lymphocytes # (Auto) 0.4L, Monocytes # (Auto) 0.8, Eosinophils # (Auto) 0.0, Basophils # (Auto) 0.0, Sodium Level 140, Potassium Level 4.2, Chloride Level 102, Carbon Dioxide Level 24, Anion Gap 14, Blood Urea Nitrogen 49H, Creatinine 1.47H, Estimat Glomerular Filtration Rate 48, BUN/ Creatinine Ratio 33, Glucose Level 240H, Calcium Level 8.8, Phosphorus Level 3.8 , Magnesium Level 2.4 10/28/17 10:25: Urine Color YELLOW, Urine Clarity VERY CLOUDYH, Urine pH 6, Urine Specific [place] 1.020, Urine Protein 2+H, Urine Glucose (UA) 2+H, Urine Ketones NEGATIVE , Urine Nitrite NEGATIVE, Urine Bilirubin NEGATIVE, Urine Urobilinogen NORMAL, Urine Leukocyte Esterase 1+H, Urine RBC (Auto) 5+H, Urine RBC >100H, Urine WBC RARE, Urine Crystals PRESENTH, Urine Uric Acid Crystals LARGEH, Urine Bacteria TRACE, Urine Casts NONE, Urine Mucus NEGATIVE, Urine Culture Indicated NO 10/28/17 11:03: Glucometer 148H Microbiology 10/23/17 Blood Culture - Preliminary, Resulted No growth 10/24/17 Gram Stain - Final, Complete 10/24/17 Sputum Culture - Final, Complete Usual/normal tawnya isolated. A/P: Assessment/Dx: Shortness of breath, pneumonia, COPD exacerbation, Sleep apnea, Acute on chronic kidney disease, Paroxysmal atrial fibrillation, PAD, hyperlipidemia Plan: Shortness of breath, pneumonia: Defer to primary team. On IV antibiotics. COPD exacerbation, still wheezing. Sleep apnea, on CPAP. Acute on chronic kidney disease, continue to follow clinically. Paroxysmal atrial fibrillation: in atrial fibrillation currently. Continue Cardizem and Xarelto. Hold off beta claire due to wheezing. Elevated heart rate likely secondary to COPD. DC digoxin. PAD: on plavix. Hyperlipidemia: on statin Thank you for your consultation. Please call me if you have any questions. Dmitry Mas MD, FACP, FACC, FSCAI, FHRS, CCDS Interventional Cardiology Cardiac Electrophysiology Vascular Medicine and Endovascular Interventions Oneil MAS MD Oct 28, 2017 10:36
[2017-10-28 10:46] LABS: BACTERIA,URINE TRACE /HPF; RBC,URINE >100 /HPF; URIC ACID CRYSTALS,URINE LARGE /LPF; WBC,URINE RARE /HPF
[2017-10-28] MEDS: RT-ALBUTEROL/IPRATROPIUM 3 ML (DUONEB) VIAL INH PRN (11:35)
--- NOTE | 2017-10-28 15:15 | Discharge Summary-Hospitalist ---
Diagnosis/Chief Complaint Date of Admission Oct 23, 2017 at 22:32 Date of Discharge Discharge Date: Oct 28, 2017 Admission Diagnosis Assessment: Respiratory failure requiring biPAP and ICU admit Atrial fibrillation with rapid ventricular response placed on Cardizem drip now converted to normal sinus rhythm Pneumonia empirically placed on antibiotics Sleep apnea maintain on CPAP Acute on chronic renal insufficiency likely diabetic nephropathy creatinine 1.9 at admission now 1.77 Diabetes mellitus on insulin CAD previous bypass surgery Peripheral vascular disease Depression Hypothyroidism Discharge Diagnosis acute respiratory failure (1) Acute respiratory distress Status: Acute Assessment & Plan: On BiPAP MAT protocol Pulm consulted, appreciate recs (2) COPD exacerbation Status: Acute Assessment & Plan: Continue steroids, MAT protocol Pulm consulted (3) Pneumonia Status: Acute Assessment & Plan: Bilateral Continue Zosyn Blood cultures- NGTD (4) Atrial fibrillation with rapid ventricular response Status: Acute Assessment & Plan: On presentation, now RVR resolved Cardiology consulted, appreciate recs On Diltiazem Off digoxin Back on Xarelto Hold Lasix (5) Acute renal insufficiency Status: Resolved Assessment & Plan: 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 from 1.9 on admission trending up today- hold lasix Discharge Summary Consultations Dr Mas- Cardiology Dr Lockett- Pulmonology Discharge Physical Examination Allergies: Coded Allergies: morphine (Verified Allergy, Intermediate, SEVERE ITCHING, 08/15/15) peach (Unverified Allergy, Unknown, 08/14/15) Uncoded Allergies: contrex (Allergy, Unknown, 08/14/15) Vitals & I&Os Vital Signs Date Time Temp Pulse Resp B/P (MAP) Pulse Ox O2 Delivery O2 Flow Rate FiO2 10/28/17 11:35 96 Nasal Cannula 5.00 10/28/17 11:10 98.0 78 20 144/68 (93) 10/28/17 08:00 35 Hospital Course Pt is a 67yoCM with a PMH of COPD who presented to the ER for dyspnea and was found to be in a-fib with RVR and have bilateral pna with COPD exacerbation. He was admitted to the ICU for cardizem gtt and BiPAP. He has slowly improved with IV steroids and antibiotics but as of this morning he was still necessitating IV steroids and BiPAP. His rate was well controlled and he has been off cardizem gtt since 10/25/17. He is to be transferred to the [place] for further care. I have spoken with Dr. Okeefe who accepts the patient in transfer. Labs (last 24 hrs) Laboratory Tests 10/27/17 16:31: Glucometer 101 10/28/17 04:55: White Blood Count 16.1H, Red Blood Count 4.78, Hemoglobin 14.2, Hematocrit 43, Mean Corpuscular Volume 90, Mean Corpuscular Hemoglobin 30, Mean Corpuscular Hemoglobin Concent 33, Red Cell Distribution Width 18.4H, Platelet Count 179, Mean Platelet Volume 12.7H, Neutrophils (%) (Auto) 93H, Lymphocytes (%) (Auto) 2L, Monocytes (%) (Auto) 5, Eosinophils (%) (Auto) 0, Basophils (%) (Auto) 0, Neutrophils # (Auto) 14.9H, Lymphocytes # (Auto) 0.4L, Monocytes # (Auto) 0.8, Eosinophils # (Auto) 0.0, Basophils # (Auto) 0.0, Sodium Level 140, Potassium Level 4.2, Chloride Level 102, Carbon Dioxide Level 24, Anion Gap 14, Blood Urea Nitrogen 49H, Creatinine 1.47H, Estimat Glomerular Filtration Rate 48, BUN/ Creatinine Ratio 33, Glucose Level 240H, Calcium Level 8.8, Phosphorus Level 3.8 , Magnesium Level 2.4 10/28/17 10:25: Urine Color YELLOW, Urine Clarity VERY CLOUDYH, Urine pH 6, Urine Specific [place] 1.020, Urine Protein 2+H, Urine Glucose (UA) 2+H, Urine Ketones NEGATIVE , Urine Nitrite NEGATIVE, Urine Bilirubin NEGATIVE, Urine Urobilinogen NORMAL, Urine Leukocyte Esterase 1+H, Urine RBC (Auto) 5+H, Urine RBC >100H, Urine WBC RARE, Urine Crystals PRESENTH, Urine Uric Acid Crystals LARGEH, Urine Bacteria TRACE, Urine Casts NONE, Urine Mucus NEGATIVE, Urine Culture Indicated NO 10/28/17 11:03: Glucometer 148H Microbiology 10/23/17 Blood Culture - Preliminary, Resulted No growth 10/24/17 Gram Stain - Final, Complete 10/24/17 Sputum Culture - Final, Complete Usual/normal tawnya isolated. Pending Labs Laboratory Tests 10/28/17 10:25: Urine Color YELLOW, Urine Clarity VERY CLOUDY, Urine pH 6, Urine Specific [place] 1.020, Urine Protein 2+, Urine Glucose (UA) 2+, Urine Ketones NEGATIVE, Urine Nitrite NEGATIVE, Urine Bilirubin NEGATIVE, Urine Urobilinogen NORMAL, Urine Leukocyte Esterase 1+, Urine RBC (Auto) 5+, Urine RBC >100, Urine WBC RARE , Urine Crystals PRESENT, Urine Uric Acid Crystals LARGE, Urine Bacteria TRACE, Urine Casts NONE, Urine Mucus NEGATIVE, Urine Culture Indicated NO 10/28/17 11:03: Glucometer 148 Discharge Home Medications: Active Scripts Active Reported Amiodarone HCl 200 Mg Tablet 400 Mg PO DAILY TAKES 2 (200MG) TABLETS Vitamin D3 (Cholecalciferol (Vitamin D3)) 50,000 Unit Capsule 50,000 Unit PO WE Crestor (Rosuvastatin Calcium) 40 Mg Tablet 20 Mg PO HS TAKES 1/2 (40MG) TABLET Metoprolol Tartrate 25 Mg Tablet 12.5 Mg PO BID TAKES 1/2 (25MG) TABLET Xarelto (Rivaroxaban) 20 Mg Tablet 20 Mg PO 1700 Fish Oil 1,200 mg Fish Oil (Fish Oil/Dha/Epa) 1 Each Capsule 1,200 Mg PO HS Fish Oil 1,200 mg Fish Oil (Fish Oil/Dha/Epa) 1 Each Capsule 2,400 Mg PO DAILY TAKES 2 (1200MG) CAPSULES Trazodone HCl 50 Mg Tablet 50 Mg PO HS Levothyroxine Sodium 25 Mcg Tablet 25 Mcg PO HS Ferrous Sulfate 324 Mg Tablet.dr 324 Mg PO TID Lisinopril 10 Mg Tablet 10 Mg PO DAILY Proair Hfa (Albuterol Sulfate) 1 Puff Puff 2 Puff IH QID PRN 1 PUFF = 90 MCG Symbicort 80-4.5 Mcg Inhaler (Budesonide/Formoterol Fumarate) 10.2 Gm Hfa.aer.ad 1 Puff IH BID Tricor (Fenofibrate) 48 Mg Tab 96 Mg PO DAILY TAKES 2 (48MG) TABLETS Plavix (Clopidogrel Bisulfate) 75 Mg Tablet 75 Mg PO DAILY Omeprazole 20 Mg Capsule.dr 40 Mg PO DAILY TAKES 2 (20MG) CAPSULES Lantus (Insulin Glargine,Hum.rec.anlog) 100 Unit/1 Ml Vial 30 Unit SC BID Novolog (Insulin Aspart) 100 Unit/1 Ml Susp SQ AC Gabapentin 300 Mg Capsule 600 Mg PO TID TAKES 2 (300MG) CAPSULES Instructions to patient/family Please see electronic discharge instructions given to patient. Clinical Quality Measures DVT/VTE Risk/Contraindication: Risk Factor Score Per Nursin RFS Level Per Nursing on Admit: 4+=Very High Pneumonia: Pseudomonal Risk: COPD SVETA MAIN MD Oct 28, 2017 15:15
[2017-10-28] MEDS: RIVAROXABAN 20 MG TABLET (XARELTO) PO SCH (16:52)
== END 2017-10-28 18:40 | disposition short-term general hospital (02) | DRG 189 ==
LOC: EDUNIT# 19:45 → ER 19:46 → ICU 22:32 → 4TH 10-28 10:40
PROVIDERS: ADMIT Internal Medicine; ATTEND Internal Medicine
DX: J96.00 Acute respiratory failure, unspecified whether with hypoxia or hypercapnia (principal); J18.9 Pneumonia, unspecified organism; J44.0 Chronic obstructive pulmonary disease with (acute) lower respiratory infection; J44.1 Chronic obstructive pulmonary disease with (acute) exacerbation; N17.9 Acute kidney failure, unspecified; I12.9 Hypertensive chronic kidney disease with stage 1 through stage 4 chronic kidney disease, or unspecified chronic kidney disease; N18.9 Chronic kidney disease, unspecified; I48.0 Paroxysmal atrial fibrillation; Z66 Do not resuscitate; F17.210 Nicotine dependence, cigarettes, uncomplicated; I25.10 Atherosclerotic heart disease of native coronary artery without angina pectoris; J81.1 Chronic pulmonary edema; I25.2 Old myocardial infarction; E78.00 Pure hypercholesterolemia, unspecified; E78.5 Hyperlipidemia, unspecified; I73.9 Peripheral vascular disease, unspecified; E11.21 Type 2 diabetes mellitus with diabetic nephropathy; Z79.4 Long term (current) use of insulin; E03.9 Hypothyroidism, unspecified; F32.9 Major depressive disorder, single episode, unspecified; D69.6 Thrombocytopenia, unspecified; G47.33 Obstructive sleep apnea (adult) (pediatric); Z95.1 Presence of aortocoronary bypass graft
CPT/HCPCS: 36415; 71045; 80048; 80053; 80162; 81000; 82805; 82962; 83605; 83735; 83880; 84100; 84484; 85007; 85025; 85027; 87040; 87070; 87081; 87205; 87804; 93005; 93306; 94640; 94660; 94760; 96361; 96374; 96375

== ENCOUNTER → 2018-02-08 | Outpatient (CLI) | payer MEDICARE ==
[~2018-02-08] MED LIST changes: +AMIO200T2 PO; +BUDE10.22 IH; +CHOL500049 PO; +CLOP75TA69 PO; +FENO48TA16 PO; +FERR324T4 PO; +FERR325T18 PO; +FISH1CAP15 PO; +LISI10TA2 PO; +ROSU40TA PO; +RT-ALBUINH IH
== END ==
LOC: CARD 09:59
PROVIDERS: ATTEND Internal Medicine Cardiovascular Disease
DX: I48.2 Chronic atrial fibrillation (principal); I25.10 Atherosclerotic heart disease of native coronary artery without angina pectoris; I73.9 Peripheral vascular disease, unspecified; I44.7 Left bundle-branch block, unspecified; G47.33 Obstructive sleep apnea (adult) (pediatric)
CPT/HCPCS: 93225; 93226

== ENCOUNTER → 2018-02-09 | Outpatient (CLI) | payer MEDICARE, OTHER ==
[~2018-02-09] VITALS: Ht 182.9 cm; Wt 97.1 kg
[~2018-02-09] MED LIST changes: +CATHETER FLUSH 10 ML SYR IV PRN; +REGADENOSON 0.4 MG/5 ML SYR (LEXISCAN) IV ONE
[2018-02-09 12:38] VITALS: BP 140/70
[2018-02-09 12:43] VITALS: BP 133/72
--- NOTE | 2018-02-10 09:29 | STRESS TEST ---
DATE OF SERVICE: 02/09/2018 PROCEDURE: Resting and post regadenoson technetium-99m Tetrofosmin SPECT CT imaging. ORDERING PHYSICIAN: Dr. Gallo. CLINICAL DIAGNOSES: Coronary artery disease, chronic atrial fibrillation, peripheral arterial disease, carotid arterial disease and left bundle branch block. Baseline images were carried out after injection of 10.89 mCi technetium-99m Tetrofosmin. This was followed by 0.4 mg regadenoson and 29.5 mCi of technetium-99m Tetrofosmin for stress imaging. The electrocardiogram showed atrial fibrillation throughout the study. There was incomplete left bundle branch block. The patient noted some shortness of breath and feeling funny following regadenoson infusion, which resolved in a few minutes. Review of images at rest and following stress indicates an inferolateral perfusion defect that is predominantly fixed. There is inferolateral hypokinesis to akinesis. Left ventricular ejection fraction is calculated to be 48%. Left ventricular end diastolic volume is 101 mL. TID is absent (1). CONCLUSIONS: 1. The study is indicative of an inferolateral myocardial infarction with a small amount of catrachita-infarct ischemia. 2. Inferolateral hypokinesis to akinesis. 3. Mild impairment of global left ventricular systolic function with a calculated ejection fraction of 48%. Job ID: [id number] DocumentID: [id number] Dictated Date: 02/10/2018 08:32:17 Batter Mixer Date: 02/10/2018 09:28:39 Dictated By: DANIEL GALLO MD, MA, FACP, FACC,
== END ==
LOC: CARD 10:50
PROVIDERS: ATTEND Internal Medicine Cardiovascular Disease
DX: I48.2 Chronic atrial fibrillation (principal); I25.10 Atherosclerotic heart disease of native coronary artery without angina pectoris; I70.213 Atherosclerosis of native arteries of extremities with intermittent claudication, bilateral legs; G47.33 Obstructive sleep apnea (adult) (pediatric); I44.69 Other fascicular block
CPT/HCPCS: 78452; 93017

== ENCOUNTER → 2018-07-30 | Outpatient (CLI) | payer MEDICARE, OTHER ==
[~2018-07-30] MED LIST changes: -AMIO200T2 PO; +AMIO200T4 PO; -CATHETER FLUSH 10 ML SYR IV PRN; -REGADENOSON 0.4 MG/5 ML SYR (LEXISCAN) IV ONE; +TRAZ-189 PO; -TRAZ-28 PO
[2018-07-30 16:33] LABS: BASOPHILS % (AUTO) 0 % (0-10); EOSINOPHILS # (AUTO) 0.1 10^3/uL (0.0-0.3); EOSINOPHILS % (AUTO) 1 % (0-10); HEMATOCRIT 40 % (40-54); LYMPHOCYTES # (AUTO) 1.3 X 10^3 (1.0-4.0); LYMPHOCYTES % (AUTO) 23 % (12-44); MEAN CORPUSCULAR HEMOGLOBIN 31 PG (25-34); MEAN CORPUSCULAR HGB CONC 33 G/DL (32-36); MEAN CORPUSCULAR VOLUME 95 FL (80-99); MEAN PLATELET VOLUME 12.2 FL (7.4-10.4); MONOCYTES # (AUTO) 0.5 X 10^3 (0.0-1.0); MONOCYTES % (AUTO) 8 % (0-12); NEUTROPHILS # (AUTO) 3.8 X 10^3 (1.8-7.8); NEUTROPHILS % (AUTO) 68 % (42-75); PLATELET COUNT 192 10^3/uL (130-400); RED BLOOD COUNT 4.14 10^6/uL (4.35-5.85); RED CELL DISTRIBUTION WIDTH 15.4 % (10.0-14.5); WHITE BLOOD COUNT 5.6 10^3/uL (4.3-11.0)
[2018-07-30 16:51] LABS: ERYTHROCYTE SEDIMENTATION RATE 10 MM/HR (0-30)
[2018-07-30 16:54] LABS: BUN/CREATININE RATIO 19; CALCIUM 9.1 MG/DL (8.5-10.1); CARBON DIOXIDE 22 MMOL/L (21-32); CHLORIDE 108 MMOL/L (98-107); CREATININE SERUM 1.01 MG/DL (0.60-1.30); GFR ESTIMATED > 60; GLUCOSE 134 MG/DL (70-105); POTASSIUM 4.9 MMOL/L (3.6-5.0); SODIUM 139 MMOL/L (135-145)
== END ==
LOC: LABNPT 16:27
PROVIDERS: ATTEND Specialist
DX: R78.81 Bacteremia (principal)
CPT/HCPCS: 80048; 85025; 85652; 86141

== ENCOUNTER 2021-08-05 13:34 | Inpatient (IN) | payer MEDICARE, OTHER ==
[2021-08-05] VITALS (13 sets, daily range): BP systolic 90–127; BP diastolic 45–80
[~2021-08-05] VITALS: Ht 182.9 cm; Wt 93.7 kg
[~2021-08-05 13:34] MED LIST changes: -AMIO200T4 PO; +AMIO200T65 PO; -LISI10TA2 PO; +LISI10TA25 PO; -OMEP20CA12 PO; +OMEP20CA18 PO; -PANT40TA3 PO; +PANT40TA52 PO; -RIVA20TA PO; +RIVA20TA2 PO; -TRAZ-189 PO; +TRZ50T PO
[2021-08-05] MEDS ORDERED: dilTIAZem DRIP PRE-MIX 125 ML IV SCH (13:45)
[2021-08-05] MEDS ORDERED: ONDANSETRON 4 MG/2 ML (SDV) Z0FRAN IVP ONE (13:45)
[2021-08-05] MEDS ORDERED: ASPIRIN 81 MG CHEW (CHILDREN'S ASA) PO ONE (13:45)
--- NOTE | 2021-08-05 13:50 | ED Cough/URI ---
General Chief Complaint: Respiratory Problems Stated Complaint: SOB Source: patient Exam Limitations: no limitations History of Present Illness Date Seen by Provider: Aug 05, 2021 Time Seen by Provider: 13:47 Initial Comments To ER by EMS from home with a 2-week history of general malaise nausea and shortness of breath. History of atrial fibrillation, coronary artery disease and COPD. EMS put him on CPAP for work of breathing though he was never hypoxic. He denies fevers. He has had Covid vaccine. [facility] 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 Timing/Duration: constant Severity/Quality: productive cough Associated Symptoms: cough, shortness of breath Allergies and Home Medications Allergies Coded Allergies: morphine (Verified Allergy, Intermediate, SEVERE ITCHING, 08/15/15) peach (Unverified Allergy, Unknown, 08/14/15) Uncoded Allergies: contrex (Allergy, Unknown, 08/14/15) Patient Home Medication List Home Medication List Reviewed: Yes Albuterol Sulfate (Proair Hfa) 1 Puff Puff, 2 PUFF IH QID PRN for SHORTNESS OF BREATH, (Reported) Entered as Reported by: OMAR RIVAS on 10/24/172118 Amiodarone HCl (Amiodarone HCl) 200 Mg Tablet, 400 MG PO DAILY, (Reported) Entered as Reported by: DACIA SANDOVAL on 10/26/171035 Budesonide/Formoterol Fumarate (Symbicort 80-4.5 Mcg Inhaler) 10.2 Gm Hfa.aer.ad , 1 PUFF IH BID, (Reported) Entered as Reported by: OMAR RIVAS on 10/24/172117 Cholecalciferol (Vitamin D3) (Vitamin D3) 50,000 Unit Capsule, 50,000 UNIT PO We, (Reported) Entered as Reported by: DACIA SANDOVAL on 10/26/171035 Clopidogrel Bisulfate (Plavix) 75 Mg Tablet, 75 MG PO DAILY, (Reported) Entered as Reported by: OMAR RIVAS on 10/24/172112 Fenofibrate (Tricor) 48 Mg Tab, 96 MG PO DAILY, (Reported) Entered as Reported by: OMAR RIVAS on 10/24/172115 Ferrous Sulfate (Ferrous Sulfate) 324 Mg Tablet.dr, 324 MG PO TID, (Reported) Entered as Reported by: DACIA SANDOVAL on 10/26/17 103 Fish Oil/Dha/Epa (Fish Oil 1,200 mg Fish Oil) 1 Each Capsule, 2,400 MG PO DAILY, (Reported) Entered as Reported by: DACIA SANDOVAL on 10/26/17 103 Fish Oil/Dha/Epa (Fish Oil 1,200 mg Fish Oil) 1 Each Capsule, 1,200 MG PO HS, (Reported) Entered as Reported by: DACIA SANDOVAL on 10/26/17 103 Gabapentin (Gabapentin) 300 Mg Capsule, 600 MG PO TID, (Reported) Entered as Reported by: LEONARDO KINGSLEY on 08/14/152326 Insulin Aspart (Novolog) 100 Unit/1 Ml Susp, SQ AC, (Reported) Entered as Reported by: LEONARDO KINGSLEY on 08/14/152326 Insulin Glargine,Hum.rec.anlog (Lantus) 100 Unit/1 Ml Vial, 30 UNIT SC BID, (Reported) Entered as Reported by: LEONARDO KINGSLEY on 08/14/152326 Levothyroxine Sodium (Levothyroxine Sodium) 25 Mcg Tablet, 25 MCG PO HS, (Reported) Entered as Reported by: DACIA SANDOVAL on 10/26/17 103 Lisinopril (Lisinopril) 10 Mg Tablet, 10 MG PO DAILY, (Reported) Entered as Reported by: DACIA SANDOVAL on 10/26/17 103 Metoprolol Tartrate (Metoprolol Tartrate) 25 Mg Tablet, 12.5 MG PO BID, (Reported) Entered as Reported by: DACIA SANDOVAL on 10/26/17 103 Omeprazole (Omeprazole) 20 Mg Capsule.dr, 40 MG PO DAILY, (Reported) Entered as Reported by: LAINE DAVID on 05/07/16 1803 Rivaroxaban (Xarelto Tablet) 20 Mg Tablet, 20 MG PO 1700, (Reported) Entered as Reported by: DACIA SANDOVAL on 10/26/17 103 Rosuvastatin Calcium (Crestor) 40 Mg Tablet, 20 MG PO HS, (Reported) Entered as Reported by: DACIA SANDOVAL on 10/26/17 103 Trazodone HCl (Trazodone HCl) 50 Mg Tablet, 50 MG PO HS, (Reported) Entered as Reported by: DACIA SANDOVAL on 10/26/17 1036 Review of Systems Review of Systems Constitutional: see HPI; No chills, No fever, No weakness EENTM: see HPI Respiratory: see HPI, dyspnea on exertion, short of breath Cardiovascular: see HPI; No chest pain Genitourinary: no symptoms reported Musculoskeletal: no symptoms reported Skin: no symptoms reported Psychiatric/Neurological: No Symptoms Reported Hematologic/Lymphatic: No Symptoms Reported Immunological/Allergic: no symptoms reported Past Nyczulv-Jemlvf-Iyyfjl Hx Immunizations Up To Date Tetanus Booster (TDap): Unknown Seasonal Allergies Seasonal Allergies: No Past Medical History Surgeries: Yes (AORTIC FEM X2) Cardiac, CABG, Coronary Stent, Open Heart Surgery, Vascular Surgery Respiratory: Yes COPD, Emphysema Currently Using CPAP: Yes Currently Using BIPAP: No Cardiac: Yes Atrial Fibrillation, Coronary Artery Disease, Heart Attack, High Cholesterol, Hypertension, Peripheral Vascular Neurological: Yes Neuropathy Reproductive Disorders: No Sexually Transmitted Disease: No HIV/AIDS: No Genitourinary: Yes Renal Failure Gastrointestinal: Yes Martinez's Esophagus, Gastrointestinal Bleed, Hiatal Hernia Musculoskeletal: Yes Arthritis, Chronic Back Pain Endocrine: Yes Diabetes, Insulin dep, Hypothyroidsim HEENT: Yes Glaucoma Loss of Vision: Denies Hearing Impairment: Denies Cancer: No Psychosocial: Yes Depression Integumentary: No Blood Disorders: No Adverse Reaction/Blood Tranf: No Family Medical History Cardiovascular disease 19 FATHER Deafness or hearing loss 19 FATHER Dementia 19 FATHER, Onset:Unknown Physical Exam Vital Signs - First Documented 08/05/21 13:37 Temp 36.5 Pulse 113 Resp 25 B/P (MAP) 116/65 (82) Pulse Ox 97 O2 Delivery Nasal Cannula O2 Flow Rate 3.00 Capillary Refill : Height: 6'0.00" Weight: 214lbs. 0.0oz. 97.313173im; 29.0 BMI Method:Stated General Appearance: WD/WN, no apparent distress, other (EKG shows atrial fibrillation with a rate of 110-130. Alert and oriented mentating well. Blood pressure 118/68.) Eyes: Bilateral Eye Normal Inspection, Bilateral Eye PERRL, Bilateral Eye EOMI HEENT: PERRL/EOMI, normal ENT inspection Neck: non-tender, full range of motion Respiratory: normal breath sounds, no respiratory distress, no accessory muscle use Cardiovascular: tachycardia, irregularly irregular Gastrointestinal: normal bowel sounds, non tender Neurologic/Psychiatric: alert, normal mood/affect, oriented x 3 Skin: normal color, warm/dry Focused Exam Lactate Level 08/05/21 13:52: Lactic Acid Level 3.09*H Lactic Acid Level Laboratory Tests Test 08/05/21 13:52 Lactic Acid Level 3.09 MMOL/L (0.50-2.00) *H Progress/Results/Core Measures Suspected Sepsis SIRS Temperature: Pulse: Respiratory Rate: Laboratory Tests 08/05/21 13:45: White Blood Count 8.9 Blood Pressure / Mean: 08/05/21 13:52: Lactic Acid Level 3.09*H Laboratory Tests 08/05/21 13:45: Creatinine 1.43H, INR Comment 1.4, Platelet Count 153, Total Bilirubin 0.8 Results/Orders Lab Results Laboratory Tests Test 08/05/21 13:45 08/05/21 13:52 08/05/21 13:56 Range/Units White Blood Count 8.9 4.3-11.0 10^3/uL Red Blood Count 2.34 L 4.30-5.52 10^6/uL Hemoglobin 7.0 L 13.3-17.7 g/dL Hematocrit 25 L 40-54 % Mean Corpuscular Volume 106 H 80-99 fL Mean Corpuscular Hemoglobin 30 25-34 pg Mean Corpuscular Hemoglobin Concent 28 L 32-36 g/dL Red Cell Distribution Width 17.7 H 10.0-14.5 % Platelet Count 153 130-400 10^3/uL Mean Platelet Volume 13.5 H 9.0-12.2 fL Immature Granulocyte % (Auto) 0 % Neutrophils (%) (Auto) 83 H 42-75 % Lymphocytes (%) (Auto) 10 L 12-44 % Monocytes (%) (Auto) 6 0-12 % Eosinophils (%) (Auto) 0 0-10 % Basophils (%) (Auto) 0 0-10 % Neutrophils # (Auto) 7.4 1.8-7.8 10^3/uL Lymphocytes # (Auto) 0.9 L 1.0-4.0 10^3/uL Monocytes # (Auto) 0.6 0.0-1.0 10^3/uL Eosinophils # (Auto) 0.0 0.0-0.3 10^3/uL Basophils # (Auto) 0.0 0.0-0.1 10^3/uL Immature Granulocyte # (Auto) 0.0 0.0-0.1 10^3/uL Percent Immature Platelet Fraction 9.2 H 0.0-7.6 % Prothrombin Time 17.5 H 12.2-14.7 SEC INR Comment 1.4 0.8-1.4 Activated Partial Thromboplast Time 36 H 24-35 SEC Sodium Level 132 L 135-145 MMOL/L Potassium Level 6.1 H 3.6-5.0 MMOL/L Chloride Level 106 98-107 MMOL/L Carbon Dioxide Level 15 L 21-32 MMOL/L Anion Gap 11 5-14 MMOL/L Blood Urea Nitrogen 23 H 7-18 MG/DL Creatinine 1.43 H 0.60-1.30 MG/DL Estimat Glomerular Filtration Rate 49 BUN/Creatinine Ratio 16 Glucose Level 197 H 70-105 MG/DL Calcium Level 8.5 8.5-10.1 MG/DL Corrected Calcium 8.7 8.5-10.1 MG/DL Magnesium Level 2.2 1.6-2.4 MG/DL Total Bilirubin 0.8 0.1-1.0 MG/DL Aspartate Amino Transf (AST/SGOT) 23 5-34 U/L Alanine Aminotransferase (ALT/SGPT) 10 0-55 U/L Alkaline Phosphatase 54 40-136 U/L Myoglobin 91.3 10.0-92.0 NG/ML Troponin I 0.488 *H <0.028 NG/ML Total Protein 6.1 L 6.4-8.2 GM/DL Albumin 3.7 3.2-4.5 GM/DL Procalcitonin 0.05 <0.10 NG/ML Influenza Type A (RT-PCR) Not Detected Not Detecte Influenza Type B (RT-PCR) Not Detected Not Detecte SARS-CoV-2 RNA (RT-PCR) Not Detected Not Detecte Lactic Acid Level 3.09 *H 0.50-2.00 MMOL/L Blood Gas Puncture Site L WRIST Blood Gas Patient Temperature 35.6 Arterial Blood pH 7.50 H 7.37-7.43 Arterial Blood Partial Pressure CO2 19 *L 35-45 MMHG Arterial Blood Partial Pressure O2 161 H 79-93 MMHG Arterial Blood HCO3 15 *L 23-27 MMOL/L Arterial Blood Total CO2 15.5 L 21.0-31.0 MMOL/L Arterial Blood Oxygen Saturation 101 H 94-100 % Arterial Blood Base Excess -8.1 L -2.5-2.5 MMOL/L Rashi Test UNK Blood Gas Ventilator Setting NO Blood Gas Inspired Oxygen UNK My Orders Orders - NINFA YUSUF APRN Aspirin Chewable Tablet (Baby Aspirin Ch (08/05/21 13:45) Cbc With Automated Diff (08/05/21 13:43) Comprehensive Metabolic Panel (08/05/21 13:43) Blood Culture (08/05/21 13:43) Sputum Culture (08/05/21 13:43) Urinalysis (08/05/21 13:43) Urine Culture (08/05/21 13:43) Protime With Inr (08/05/21 13:43) Partial Thromboplastin Time (08/05/21 13:43) Chest 1 View, Ap/Pa Only (08/05/21 13:43) Ed Iv/Invasive Line Start (08/05/21 13:43) Vital Signs Adult Sepsis Patie Q15M (08/05/21 13:43) O2 (08/05/21 13:43) Remove Rings In Anticipation O (08/05/21 13:43) Lactic Acid Analyzer (08/05/21 13:43) Influenza A And B By Pcr (08/05/21 13:43) Magnesium (08/05/21 13:43) Ekg Tracing (08/05/21 13:43) Myoglobin Serum (08/05/21 13:43) O2 (08/05/21 13:43) Monitor-Rhythm Ecg Trace Only (08/05/21 13:43) Lipid Panel (08/06/21 06:00) Ed Iv/Invasive Line Start (08/05/21 13:43) Troponin I (08/05/21 13:43) Diltiazem Drip Pre-Mix (Cardizem Drip Pr (08/05/21 13:45) Diltiazem Injection (Cardizem Injection) (08/05/21 13:45) Ns Iv 500 Ml (Sodium Chloride 0.9%) (08/05/21 13:45) Ondansetron Injection (Zofran Injectio (08/05/21 13:45) Procalcitonin (Pct) (08/05/21 13:43) Arterial Blood Gas (08/05/21 13:43) Covid 19 Inhouse Test (08/05/21 13:43) Albuterol/Ipra Inhalation Soln (Duoneb I (08/05/21 14:45) Albuterol Inhaler (Albuterol) (08/05/21 18:00) Sodium Polystyrene Sulfonate (Kayexalate (08/05/21 14:45) Svn Small Volume Nebulizer (08/05/21 14:45) Insulin (Regular) Human (Novolin R (Per (08/05/21 14:45) D50w (Emergency) Syringe (Dextrose 50% 5 (08/05/21 14:45) Ns (Ivpb) (Sodium Chloride 0.9%) (08/05/21 15:00) Us Left Low Ext Arterial [id number] (08/05/21 15:05) Medications Given in ED Current Medications Medications Dose Ordered Sig/Radha Route Start Time Stop Time Status Last Admin Dose Admin Aspirin 324 mg ONCE ONCE PO 08/05/21 13:45 08/05/21 13:47 DC 08/05/21 14:07 324 MG Diltiazem HCl 10 mg ONCE ONCE IVP 08/05/21 13:45 08/05/21 13:47 DC 08/05/21 14:10 10 MG Ondansetron HCl 4 mg ONCE ONCE IVP 08/05/21 13:45 08/05/21 13:47 DC 08/05/21 14:07 4 MG Vital Signs/I&O 08/05/21 08/05/21 08/05/21 13:37 13:37 14:20 Temp 36.5 Pulse 113 Resp 25 B/P (MAP) 116/65 (82) Pulse Ox 97 O2 Delivery Nasal Cannula NIV CPAP O2 Flow Rate 3.00 Capillary Refill : Departure Communication (Admissions) Family Conversation NAME: ADRIAN HENDERSON MED REC#: [id number] PT STATUS: REG ER : 1950 PHYSICIAN: NINFA YUSUF APRN ADMIT DATE: 08/05/21/ER Draft Date of Exam:08/05/21 CHEST 1 VIEW, AP/PA ONLY INDICATION: Sepsis and shortness of breath. Frontal chest obtained at 2:42 p.m. and compared to 10/28/2017. FINDINGS: There is post-sternotomy change and cardiomegaly. There is no focal infiltrate, pneumothorax, or pleural fluid. IMPRESSION: Cardiomegaly and post-sternotomy change with no acute process in the chest. Dictated on workstation # [id number] Dict: 08/05/21 1456 Trans: 08/05/21 1459 [id number] Interpreted by: KWASI NARAYANAN MD Electronically signed by: 1448-discussed with Dr. Mcdonald, will admit, heart rate has fallen from the 130s atrial fibrillation RVR down to about 95-1 05 still atrial fibrillation. At this time blood pressure is 86/57. This is after a 10 mg Cardizem bolus. No drip. 500 mL fluid bolus infusing. Potassium has come back elevated at 6.1. I called lab to verify that there is no hemolysis and there is none. We will give him some insulin and D50, high-dose albuterol treatment and Kayexalate. 1458-sister is here, reports a wound on the left second toe (the left great toe has previously been amputated). His primary care provider up in [facility] has elected not to amputate secondary to known PAD left leg that sounds, according to sister, like the only option left is BKA. Plan is to let this toe "self amputate". Currently denies any pain in the leg but states with minimal activity he has severe aching in his leg that requires about 3 to 5 minutes of recovery time before it resolves. Impression Primary Impression: Atrial fibrillation with RVR Additional Impressions: General weakness Hyperkalemia Claudication of left lower extremity Disposition: ADMITTED INPATIENT Condition: Stable Admissions Decision to Admit Reason: Admit from ER (General) Decision to Admit/Date: Aug 05, 2021 Time/Decision to Admit Time: 13:53 Departure-Patient Inst. Referrals: NO,LOCAL PHYSICIAN (PCP/Family) Primary Care Physician NINFA YUSUF APRN Aug 05, 2021 13:50
[2021-08-05 13:52] LABS: HEMATOCRIT 25 % (40-54); LYMPHOCYTES % (AUTO) 10 % (12-44); MEAN CORPUSCULAR HGB CONC 28 g/dL (32-36)
[2021-08-05 13:54] LABS: BASOPHILS % (AUTO) 0 % (0-10); EOSINOPHILS % (AUTO) 0 % (0-10); LYMPHOCYTES # (AUTO) 0.9 10^3/uL (1.0-4.0); MEAN CORPUSCULAR HEMOGLOBIN 30 pg (25-34); MEAN CORPUSCULAR VOLUME 106 fL (80-99); MEAN PLATELET VOLUME 13.5 fL (9.0-12.2); MONOCYTES # (AUTO) 0.6 10^3/uL (0.0-1.0); MONOCYTES % (AUTO) 6 % (0-12); NEUTROPHILS # (AUTO) 7.4 10^3/uL (1.8-7.8); NEUTROPHILS % (AUTO) 83 % (42-75); PLATELET COUNT 153 10^3/uL (130-400); WHITE BLOOD COUNT 8.9 10^3/uL (4.3-11.0)
[2021-08-05 14:03] LABS: ABG BASE EXCESS -8.1 MMOL/L (-2.5-2.5); ABG OXYGEN SATURATION 101 % (94-100); ABG PO2 161 MMHG (79-93); ABG TCO2 15.5 MMOL/L (21.0-31.0)
[2021-08-05] MEDS: NS IV 500 ML 500 ML IV SCH ×2 (14:07→15:25)
[2021-08-05 14:12] LABS: ABG PCO2 19 MMHG (35-45); PATIENT TEMP 35.6; VENTILATOR NO
[2021-08-05 14:27] LABS: INR 1.4 (0.8-1.4); PROTHROMBIN TIME PATIENT 17.5 SEC (12.2-14.7)
[2021-08-05 14:28] LABS: ALBUMIN 3.7 GM/DL (3.2-4.5)
[2021-08-05 14:30] LABS: CALCIUM 8.5 MG/DL (8.5-10.1)
[2021-08-05 14:31] LABS: TOTAL PROTEIN 6.1 GM/DL (6.4-8.2)
[2021-08-05 14:33] LABS: BILIRUBIN,TOTAL 0.8 MG/DL (0.1-1.0)
[2021-08-05 14:34] LABS: CREATININE SERUM 1.43 MG/DL (0.60-1.30)
[2021-08-05 14:40] LABS: POTASSIUM 6.1 MMOL/L (3.6-5.0)
[2021-08-05 14:42] LABS: MAGNESIUM 2.2 MG/DL (1.6-2.4)
[2021-08-05] MEDS ORDERED: inSUlin (REGULAR) HUMAN 1 UNIT/0.01 ML (CHARGE PER UNIT) IV ONE (14:45)
[2021-08-05] MEDS ORDERED: SOD POLYSTERENE 15 GM/60 ML (KAYEXALATE) UNIT DOSE PO ONE (14:45)
[2021-08-05] MEDS ORDERED: DEXTROSE 50% 50 ML (IMS) SYR IV ONE (14:45)
[2021-08-05] MEDS ORDERED: RT-ALBUTEROL/IPRATROPIUM 3 ML (DUONEB) VIAL INH ONE (14:45)
--- NOTE | 2021-08-05 14:59 | Diagnostic Imaging Report ---
INDICATION: Sepsis and shortness of breath. Frontal chest obtained at 2:42 p.m. and compared to 10/28/2017. FINDINGS: There is post-sternotomy change and cardiomegaly. There is no focal infiltrate, pneumothorax, or pleural fluid. IMPRESSION: Cardiomegaly and post-sternotomy change with no acute process in the chest. Dictated by: Dictated on workstation # [id number]
[2021-08-05] MEDS ORDERED: NS (IVPB) 250 ML IV ONE (15:00)
--- NOTE | 2021-08-05 15:40 | Consultation - Surgery ---
DORIS GOMEZ 08/05/21 1540: History of Present Illness History of Present Illness Patient Consulted On(christine/time) 08/05/21 15:14 Date Seen by Provider: Aug 05, 2021 Time Seen by Provider: 15:14 Reason for Visit: Dry Gangrene of left foot History of Present Illness Patient is being consulted by surgery for dry gangrene of his left foot, toe #2. Pt arrived to ER by EMS from home. 2wk history of malaise, nausea, and shortness of breath. Has severe off and on pain, claudication in legs bilaterally. History of atrial fibrillation, peripheral arterial disease, coronary artery disease, COPD. Denies fevers. Pt had left toe #1 amputated about [address] Tim ([place]) on 02/11/21. Was told by Dr. Tim to let toe #2 self amputate. Allergies and Home Medications Allergies Coded Allergies: morphine (Verified Allergy, Intermediate, SEVERE ITCHING, 08/15/15) peach (Unverified Allergy, Unknown, 08/14/15) Uncoded Allergies: contrex (Allergy, Unknown, 08/14/15) Patient Home Medication List Albuterol Sulfate (Proair Hfa) 1 Puff Puff, 2 PUFF IH QID PRN for SHORTNESS OF BREATH, (Reported) Entered as Reported by: OMAR RIVAS on 10/24/172118 Last Action: Reviewed Budesonide/Formoterol Fumarate (Symbicort 80-4.5 Mcg Inhaler) 10.2 Gm Hfa.aer.ad, 2 PUFF IH BID, (Reported) Entered as Reported by: OMAR RIVAS on 10/24/172117 Last Action: Reviewed Cephalexin (Cephalexin) 500 Mg Capsule, 500 MG PO DAILY, (Reported) Entered as Reported by: CARY KNOX on 08/05/211735 Last Action: Reviewed Cholecalciferol (Vitamin D3) (Vitamin D3) 250 Mcg Tablet, 1,000 UNITS PO DAILY, (Reported) Entered as Reported by: CARY KNOX on 08/05/211735 Last Action: Reviewed Clopidogrel Bisulfate (Plavix) 75 Mg Tablet, 75 MG PO DAILY, (Reported) Entered as Reported by: OMAR RIVAS on 10/24/172112 Last Action: Reviewed Diltiazem HCl (Diltiazem 12Hr ER) 120 Mg Cap.er.12h, 120 MG PO DAILY, (Reported) Entered as Reported by: CARY KNOX on 08/05/211735 Last Action: Reviewed Famotidine (Famotidine) 40 Mg Tablet, 40 MG PO HS, (Reported) Entered as Reported by: CARY KNOX on 08/05/211735 Last Action: Reviewed Ferrous Sulfate (Ferrous Sulfate) 324 Mg Tablet.dr, 324 MG PO DAILY, (Reported) Entered as Reported by: DACIA SANDOVAL on 10/26/171035 Last Action: Reviewed Gabapentin (Gabapentin) 300 Mg Capsule, 600 MG PO TID, (Reported) Entered as Reported by: LEONARDO KINGSLEY on 08/14/152326 Last Action: Reviewed Insulin Aspart (Novolog) 100 Unit/1 Ml Susp, 15 UNITS SQ AC, (Reported) Entered as Reported by: LEONARDO KINGSLEY on 08/14/152326 Last Action: Reviewed Insulin Glargine,Hum.rec.anlog (Lantus) 100 Unit/1 Ml Vial, 40 UNIT SC DAILY, (Reported) Entered as Reported by: LEONARDO KINGSLEY on 08/14/152326 Last Action: Reviewed Insulin Glargine,Hum.rec.anlog (Lantus) 100 Unit/1 Ml Vial, 45 UNIT SQ HS, (Reported) Entered as Reported by: CARY KNOX on 08/05/211735 Last Action: Reviewed Levothyroxine Sodium (Levothyroxine) 75 Mcg Capsule, 75 MCG PO DAILY, (Reported) Entered as Reported by: CARY KNOX on 08/05/211735 Last Action: Reviewed Lisinopril (Lisinopril) 5 Mg Tablet, 5 MG PO DAILY, (Reported) Entered as Reported by: CARY KNOX on 08/05/211735 Last Action: Reviewed Metoclopramide HCl (Reglan) 10 Mg Tablet, 10 MG PO Q6H, (Reported) Entered as Reported by: CARY KNOX on 08/05/211735 Last Action: Reviewed Metoprolol Succinate (Metoprolol Succinate) 50 Mg Tab.er.24h, 25 MG PO DAILY, (Reported) Entered as Reported by: CARY KNOX on 08/05/211735 Last Action: Reviewed Promethazine HCl (Promethazine Tablet) 25 Mg Tablet, 25 MG PO Q6H PRN for NAUSEA/VOMITING, (Reported) Entered as Reported by: CARY KNOX on 08/05/211735 Last Action: Reviewed Rivaroxaban (Xarelto Tablet) 20 Mg Tablet, 20 MG PO 1700, (Reported) Entered as Reported by: DACIA SANDOVAL on 10/26/171035 Last Action: Reviewed Rosuvastatin Calcium (Crestor) 40 Mg Tablet, 20 MG PO HS, (Reported) Entered as Reported by: DACIA SANDOVAL on 10/26/171035 Last Action: Reviewed Tizanidine HCl (Tizanidine HCl) 4 Mg Tablet, 4 MG PO TID PRN for SPASMS, (Reported) Entered as Reported by: CARY KNOX on 08/05/211735 Last Action: Reviewed Trazodone HCl (Trazodone HCl) 50 Mg Tablet, 50 MG PO HS, (Reported) Entered as Reported by: DACIA SANDOVAL on 10/26/171035 Last Action: Reviewed Discontinued Medications Amiodarone HCl (Amiodarone HCl) 200 Mg Tablet, 400 MG PO DAILY, (Reported) Discontinued Reason: No Longer Taking Entered as Reported by: DACIA SANDOVAL on 10/26/171035 Last Action: Discontinued Cholecalciferol (Vitamin D3) (Vitamin D3) 50,000 Unit Capsule, 50,000 UNIT PO We, (Reported) Discontinued Reason: No Longer Taking Entered as Reported by: DACIA SANDOVAL on 10/26/171035 Last Action: Discontinued Fenofibrate (Tricor) 48 Mg Tab, 96 MG PO DAILY, (Reported) Discontinued Reason: No Longer Taking Entered as Reported by: OMAR RIVAS on 10/24/172115 Last Action: Discontinued Fish Oil/Dha/Epa (Fish Oil 1,200 mg Fish Oil) 1 Each Capsule, 2,400 MG PO DAILY, (Reported) Discontinued Reason: No Longer Taking Entered as Reported by: DACIA SANDOVAL on 10/26/171035 Last Action: Discontinued Fish Oil/Dha/Epa (Fish Oil 1,200 mg Fish Oil) 1 Each Capsule, 1,200 MG PO HS, (Reported) Discontinued Reason: No Longer Taking Entered as Reported by: DACIA SANDOVAL on 10/26/17 103 Last Action: Discontinued Levothyroxine Sodium (Levothyroxine Sodium) 25 Mcg Tablet, 25 MCG PO HS, (Reported) Discontinued Reason: No Longer Taking Entered as Reported by: DACIA SANDOVAL on 10/26/17 103 Last Action: Discontinued Lisinopril (Lisinopril) 10 Mg Tablet, 10 MG PO DAILY, (Reported) Discontinued Reason: No Longer Taking Entered as Reported by: DACIA SANDOVAL on 10/26/171035 Last Action: Discontinued Metoprolol Tartrate (Metoprolol Tartrate) 25 Mg Tablet, 12.5 MG PO BID, (Reported) Discontinued Reason: No Longer Taking Entered as Reported by: DACIA SANDOVAL on 10/26/171035 Last Action: Discontinued Omeprazole (Omeprazole) 20 Mg Capsule.dr, 40 MG PO DAILY, (Reported) Discontinued Reason: No Longer Taking Entered as Reported by: LAINE DAVID on 05/07/161802 Last Action: Discontinued Past Ldetmdr-Mhovti-Vimwoh Hx Patient Social History Smoking Status: Former Smoker (Smoked 1 pack per day since age 10. Quit smoking in 2018. 57 pack year smoker.) Type Used: Cigarettes 2nd Hand Smoke Exposure: Yes Recent Hopitalizations: Yes Alcohol Use?: No Immunizations Up To Date Tetanus Booster (TDap): Unknown Date of Pneumonia Vaccine: Aug 30, 2015 Date of Influenza Vaccine: Jul 27, 2015 Seasonal Allergies Seasonal Allergies: No Surgeries History of Surgeries: Yes (AORTIC FEM X2) Surgeries: Cardiac, CABG, Coronary Stent, Open Heart Surgery, Vascular Surgery Respiratory History of Respiratory Disorde: Yes Respiratory Disorders: COPD, Emphysema Cardiovascular History of Cardiac Disorders: Yes Cardiac Disorders: Atrial Fibrillation, Coronary Artery Disease, Heart Attack, High Cholesterol, Hypertension, Peripheral Vascular Neurological History of Neurological Disord: Yes Neurological Disorders: Neuropathy Reproductive System Hx Reproductive Disorders: No Sexually Transmitted Disease: No HIV/AIDS: No Genitourinary History of Genitourinary Disor: Yes Genitourinary Disorders: Renal Failure Gastrointestinal History of Gastrointestinal Di: Yes Gastrointestinal Disorders: Martinez's Esophagus, Gastrointestinal Bleed, Hiatal Hernia Musculoskeletal History of Musculoskeletal Dis: Yes Musculoskeletal Disorders: Arthritis, Chronic Back Pain Endocrine History of Endocrine Disorders: Yes Endocrine Disorders: Diabetes, Insulin dep, Hypothyroidsim HEENT History of HEENT Disorders: Yes HEENT Disorders: Glaucoma Loss of Vision: Denies Hearing Impairment: Denies Cancer History of Cancer: No Psychosocial History of Psychiatric Problem: Yes Behavioral Health Disorders: Depression Integumentary History of Skin or Integumenta: No Blood Transfusions History of Blood Disorders: No Adverse Reaction to a Blood Tr: No Family Medical History Significant Family History: Cancer (1 brother pancreatic CA. 1 brother malignant melanoma. 1 brotherlung CA. one brother esophageal CA), CAD Under 55 Years Old (Father of Heart Dz at age 53), Diabetes (Mother) Family Medial History: Cardiovascular disease 19 FATHER Deafness or hearing loss 19 FATHER Dementia 19 FATHER, Onset:Unknown Review of Systems-General Constitutional: No diaphoresis, No fever; malaise EENTM: blurred vision (Pt has cataracts); No hearing loss Respiratory: No cough; dyspnea on exertion, short of breath (mostly on exertion when trying to walk especially) Cardiovascular: palpitations (occasionally. No palpitations right now.), other (Pt described chest tightness sometimes. Not a specific pain.) Gastrointestinal: No abdominal pain, No constipation; melena (Pt has dark bowel movements. He takes Iron) Genitourinary: No decreased output, No dysuria Musculoskeletal: muscle pain (pain in legs occasionally.), muscle weakness (general weakness. In the legs also when trying to walk.) Skin: change in color (redness in legs); No change in hair/nails Psychiatric/Neurological: Denies Headache; Weakness Physical Exam-General Problems Physical Exam Vital Signs Vital Signs - First Documented 08/05/21 13:37 Temp 36.5 Pulse 113 Resp 25 B/P (MAP) 116/65 (82) Pulse Ox 97 O2 Delivery Nasal Cannula O2 Flow Rate 3.00 Capillary Refill : General Appearance: no apparent distress, other (chronically ill) HEENT: PERRL/EOMI; No scleral icterus (R), No scleral icterus (L); other (dry and pale lips) Neck: non-tender, full range of motion, supple Respiratory: chest non-tender, lungs clear, normal breath sounds, no respiratory distress, no accessory muscle use Cardiovascular: regular rate, rhythm, no murmur Peripheral Pulses: 1+ Dorsalis Pedis (R), 1+ Left Dors-Pedis (L); 2+ Radial Pulses (R), 2+ Radial Pulses (L) Gastrointestinal: normal bowel sounds, non tender, soft, no organomegaly, no pulsatile mass Extremities: no calf tenderness (Pt said that caalves become tender at various moments.), other (Missing left tow #1 from amputation 1 year ago. Left toe #2 has a dry gangrenous appearance. ) Neurologic/Psychiatric: alert, normal mood/affect, oriented x 3 Skin: pallor Lymphatic: no adenopathy (Axillary) Data Review Labs Laboratory Tests 08/05/21 13:45: White Blood Count 8.9, Red Blood Count 2.34L, Hemoglobin 7.0L, Hematocrit 25L, Mean Corpuscular Volume 106H, Mean Corpuscular Hemoglobin 30, Mean Corpuscular Hemoglobin Concent 28L, Red Cell Distribution Width 17.7H, Platelet Count 153, Mean Platelet Volume 13.5H, Immature Granulocyte % (Auto) 0, Neutrophils (%) (Auto) 83H, Lymphocytes (%) (Auto) 10L, Monocytes (%) (Auto) 6, Eosinophils (%) (Auto) 0, Basophils (%) (Auto) 0, Neutrophils # (Auto) 7.4, Lymphocytes # (Auto) 0.9L, Monocytes # (Auto) 0.6, Eosinophils # (Auto) 0.0, Basophils # (Auto) 0.0, Immature Granulocyte # (Auto) 0.0, Percent Immature Platelet Fraction 9.2H, Prothrombin Time 17.5H, INR Comment 1.4, Activated Partial Thromboplast Time 36H , Sodium Level 132L, Potassium Level 6.1H, Chloride Level 106, Carbon Dioxide Level 15L, Anion Gap 11, Blood Urea Nitrogen 23H, Creatinine 1.43H, Estimat Glomerular Filtration Rate 49, BUN/Creatinine Ratio 16, Glucose Level 197H, Calcium Level 8.5, Corrected Calcium 8.7, Magnesium Level 2.2, Total Bilirubin 0.8, Aspartate Amino Transf (AST/SGOT) 23, Alanine Aminotransferase (ALT/SGPT) 10, Alkaline Phosphatase 54, Myoglobin 91.3, Troponin I 0.488*H, Total Protein 6.1L, Albumin 3.7, Procalcitonin 0.05, Influenza Type A (RT-PCR) Not Detected, Influenza Type B (RT-PCR) Not Detected, SARS-CoV-2 RNA (RT-PCR) Not Detected 08/05/21 13:52: Lactic Acid Level 3.09*H 08/05/21 13:56: Blood Gas Puncture Site L WRIST, Blood Gas Patient Temperature 35.6, Arterial Blood pH 7.50H, Arterial Blood Partial Pressure CO2 19*L, Arterial Blood Partial Pressure O2 161H, Arterial Blood HCO3 15*L, Arterial Blood Total CO2 15.5L, Arterial Blood Oxygen Saturation 101H, Arterial Blood Base Excess -8.1L, Rashi Test UNK, Blood Gas Ventilator Setting NO, Blood Gas Inspired Oxygen UNK Assessment/Plan Assessment/Plan Admission Diagonsis Dry gangrene of left toe #2 x-ray TIMOTHY THAO DO 08/05/21 193: History of Present Illness History of Present Illness Time Seen by Provider: 15:22 History of Present Illness Surgery consulted regarding anemia and gangrene of left second toe. HPI per ED: To ER by EMS from home with a 2-week history of general malaise nausea and shortness of breath. History of atrial fibrillation, coronary artery disease and COPD. EMS put him on CPAP for work of breathing though he was never hypoxic. He denies fevers. He has had Covid vaccine. [facility] 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 Timing/Duration: constant Severity/Quality: productive cough Associated Symptoms: cough, shortness of breath When I saw pt in the ER his was at bedside helping to answer questions. He mainly presented to ER because of SOB and malaise; while doing physical exam the ER noted the gangrene of toe. states that they had it looked at up at [facility] in and doctor up there told them to just let it self-amputate, "unless it gets soupy". Pt has no specific pain at that toe, but generalized and severe leg pain. doesn't think toe looks any worse than it has, but also it has been 6 months and hasn't "fallen off on its own". also states that pt has had a colonoscopy, EGD and capsule just over 10 yrs ago for anemia; nothing found at that time. She doesn't think he has been anemic since then. Allergies and Home Medications Allergies Coded Allergies: morphine (Verified Allergy, Intermediate, SEVERE ITCHING, 08/15/15) peach (Unverified Allergy, Unknown, 08/14/15) Uncoded Allergies: contrex (Allergy, Unknown, 08/14/15) Patient Home Medication List Home Medication List Reviewed: Yes Albuterol Sulfate (Proair Hfa) 1 Puff Puff, 2 PUFF IH QID PRN for SHORTNESS OF BREATH, (Reported) Entered as Reported by: OMAR RIVAS on 10/24/172118 Last Action: Reviewed Budesonide/Formoterol Fumarate (Symbicort 80-4.5 Mcg Inhaler) 10.2 Gm Hfa.aer.ad, 2 PUFF IH BID, (Reported) Entered as Reported by: OMAR RIVAS on 10/24/172117 Last Action: Reviewed Cephalexin (Cephalexin) 500 Mg Capsule, 500 MG PO DAILY, (Reported) Entered as Reported by: CARY KNOX on 08/05/211735 Last Action: Reviewed Cholecalciferol (Vitamin D3) (Vitamin D3) 250 Mcg Tablet, 1,000 UNITS PO DAILY, (Reported) Entered as Reported by: CARY KNOX on 08/05/211735 Last Action: Reviewed Clopidogrel Bisulfate (Plavix) 75 Mg Tablet, 75 MG PO DAILY, (Reported) Entered as Reported by: OMAR RIVAS on 10/24/172112 Last Action: Reviewed Diltiazem HCl (Diltiazem 12Hr ER) 120 Mg Cap.er.12h, 120 MG PO DAILY, (Reported) Entered as Reported by: CARY KNOX on 08/05/211735 Last Action: Reviewed Famotidine (Famotidine) 40 Mg Tablet, 40 MG PO HS, (Reported) Entered as Reported by: CARY KNOX on 08/05/211735 Last Action: Reviewed Ferrous Sulfate (Ferrous Sulfate) 324 Mg Tablet.dr, 324 MG PO DAILY, (Reported) Entered as Reported by: DACIA SANDOVAL on 10/26/17 1036 Last Action: Reviewed Gabapentin (Gabapentin) 300 Mg Capsule, 600 MG PO TID, (Reported) Entered as Reported by: LEONARDO KINGSLEY on 08/14/15 0122 Last Action: Reviewed Insulin Aspart (Novolog) 100 Unit/1 Ml Susp, 15 UNITS SQ AC, (Reported) Entered as Reported by: LEONARDO KINGSLEY on 08/14/152326 Last Action: Reviewed Insulin Glargine,Hum.rec.anlog (Lantus) 100 Unit/1 Ml Vial, 40 UNIT SC DAILY, (Reported) Entered as Reported by: LEONARDO KINGSLEY on 08/14/152326 Last Action: Reviewed Insulin Glargine,Hum.rec.anlog (Lantus) 100 Unit/1 Ml Vial, 45 UNIT SQ HS, (Reported) Entered as Reported by: CARY KNOX on 08/05/211735 Last Action: Reviewed Levothyroxine Sodium (Levothyroxine) 75 Mcg Capsule, 75 MCG PO DAILY, (Reported) Entered as Reported by: CARY KNOX on 08/05/211735 Last Action: Reviewed Lisinopril (Lisinopril) 5 Mg Tablet, 5 MG PO DAILY, (Reported) Entered as Reported by: CARY KNOX on 08/05/211735 Last Action: Reviewed Metoclopramide HCl (Reglan) 10 Mg Tablet, 10 MG PO Q6H, (Reported) Entered as Reported by: CARY KNOX on 08/05/211735 Last Action: Reviewed Metoprolol Succinate (Metoprolol Succinate) 50 Mg Tab.er.24h, 25 MG PO DAILY, (Reported) Entered as Reported by: CARY KNOX on 08/05/211735 Last Action: Reviewed Promethazine HCl (Promethazine Tablet) 25 Mg Tablet, 25 MG PO Q6H PRN for NAUSEA/VOMITING, (Reported) Entered as Reported by: CARY KNOX on 08/05/211735 Last Action: Reviewed Rivaroxaban (Xarelto Tablet) 20 Mg Tablet, 20 MG PO 1700, (Reported) Entered as Reported by: DACIA SANDOVAL on 10/26/171035 Last Action: Reviewed Rosuvastatin Calcium (Crestor) 40 Mg Tablet, 20 MG PO HS, (Reported) Entered as Reported by: DACIA SANDOVAL on 10/26/171035 Last Action: Reviewed Tizanidine HCl (Tizanidine HCl) 4 Mg Tablet, 4 MG PO TID PRN for SPASMS, (Reported) Entered as Reported by: CARY KNOX on 08/05/211735 Last Action: Reviewed Trazodone HCl (Trazodone HCl) 50 Mg Tablet, 50 MG PO HS, (Reported) Entered as Reported by: DACIA SANDOVAL on 10/26/171035 Last Action: Reviewed Discontinued Medications Amiodarone HCl (Amiodarone HCl) 200 Mg Tablet, 400 MG PO DAILY, (Reported) Discontinued Reason: No Longer Taking Entered as Reported by: DACIA SANDOVAL on 10/26/171035 Last Action: Discontinued Cholecalciferol (Vitamin D3) (Vitamin D3) 50,000 Unit Capsule, 50,000 UNIT PO We, (Reported) Discontinued Reason: No Longer Taking Entered as Reported by: DACIA SANDOVAL on 10/26/171035 Last Action: Discontinued Fenofibrate (Tricor) 48 Mg Tab, 96 MG PO DAILY, (Reported) Discontinued Reason: No Longer Taking Entered as Reported by: OMAR RIVAS on 10/24/172115 Last Action: Discontinued Fish Oil/Dha/Epa (Fish Oil 1,200 mg Fish Oil) 1 Each Capsule, 2,400 MG PO DAILY, (Reported) Discontinued Reason: No Longer Taking Entered as Reported by: DACIA SANDOVAL on 10/26/171035 Last Action: Discontinued Fish Oil/Dha/Epa (Fish Oil 1,200 mg Fish Oil) 1 Each Capsule, 1,200 MG PO HS, (Reported) Discontinued Reason: No Longer Taking Entered as Reported by: DACIA SANDOVAL on 10/26/171035 Last Action: Discontinued Levothyroxine Sodium (Levothyroxine Sodium) 25 Mcg Tablet, 25 MCG PO HS, (Reported) Discontinued Reason: No Longer Taking Entered as Reported by: DACIA SANDOVAL on 10/26/171035 Last Action: Discontinued Lisinopril (Lisinopril) 10 Mg Tablet, 10 MG PO DAILY, (Reported) Discontinued Reason: No Longer Taking Entered as Reported by: DACIA SANDOVAL on 10/26/171035 Last Action: Discontinued Metoprolol Tartrate (Metoprolol Tartrate) 25 Mg Tablet, 12.5 MG PO BID, (Reported) Discontinued Reason: No Longer Taking Entered as Reported by: DACIA SANDOVAL on 10/26/171035 Last Action: Discontinued Omeprazole (Omeprazole) 20 Mg Capsule.dr, 40 MG PO DAILY, (Reported) Discontinued Reason: No Longer Taking Entered as Reported by: LAINE DAVID on 05/07/16 9528 Last Action: Discontinued Past Icdirro-Eopmbn-Ppwpot Hx Patient Social History Smoking Status: Former Smoker (Smoked 1 pack per day since age 10. Quit smoking in 2018. 57 pack year smoker.) Surgeries History of Surgeries: Yes Surgeries: Amputation, CABG, Vascular Surgery (aorto-bifem, stents in legs) Respiratory History of Respiratory Disorde: Yes Respiratory Disorders: COPD, Emphysema Cardiovascular History of Cardiac Disorders: Yes Cardiac Disorders: Atrial Fibrillation, Coronary Artery Disease, High Cholesterol, Hypertension, Peripheral Vascular Neurological History of Neurological Disord: Yes Neurological Disorders: Neuropathy Genitourinary History of Genitourinary Disor: Yes Genitourinary Disorders: Renal Failure Gastrointestinal History of Gastrointestinal Di: Yes Gastrointestinal Disorders: Gastroesophageal Reflux, Martinez's Esophagus, Gastrointestinal Bleed Musculoskeletal History of Musculoskeletal Dis: Yes Musculoskeletal Disorders: Amputee, Arthritis, Chronic Back Pain Endocrine History of Endocrine Disorders: Yes Endocrine Disorders: Diabetes, Insulin dep HEENT History of HEENT Disorders: Yes HEENT Disorders: Glaucoma Loss of Vision: Bilateral Hearing Impairment: Hard of Hearing Cancer History of Cancer: No Psychosocial History of Psychiatric Problem: Yes Behavioral Health Disorders: Depression Family Medical History Significant Family History: Cancer (1 brother pancreatic CA. 1 brother malignant melanoma. 1 brotherlung CA. one brother esophageal CA), CAD Under 55 Years Old (Father of Heart Dz at age 53), Diabetes (Mother) Family Medial History: Cardiovascular disease 19 FATHER Deafness or hearing loss 19 FATHER Dementia 19 FATHER, Onset:Unknown Review of Systems-General Constitutional: No diaphoresis, No fever; malaise EENTM: blurred vision (Pt has cataracts); No hearing loss Respiratory: No cough; dyspnea on exertion, short of breath (mostly on exertion when trying to walk especially) Cardiovascular: palpitations (occasionally. No palpitations right now.), other (Pt described chest tightness sometimes. Not a specific pain.) Gastrointestinal: No abdominal pain, No constipation; melena (Pt has dark bowel movements. He takes Iron) Genitourinary: No decreased output, No dysuria Musculoskeletal: joint pain, muscle pain (pain in legs occasionally.), muscle weakness (general weakness. In the legs also when trying to walk.) Skin: change in color (redness in legs); No change in hair/nails Psychiatric/Neurological: Depressed; Denies Headache; Weakness Physical Exam-General Problems Physical Exam General Appearance: mild distress, other (chronically ill) Eyes: Bilateral Eye PERRL, Bilateral Eye EOMI HEENT: pharynx normal; No scleral icterus (R), No scleral icterus (L); other (dry and pale lips) Neck: non-tender, supple Respiratory: lungs clear, normal breath sounds, no respiratory distress, no accessory muscle use Cardiovascular: regular rate, rhythm, no murmur Gastrointestinal: non tender, soft, no organomegaly, no pulsatile mass Extremities: no calf tenderness (Pt said that caalves become tender at various moments.), pedal edema, swelling, other (Missing left toe #1 from amputation 1 year ago. Left toe #2 has a dry gangrenous appearance. both feet are red in color) Neurologic/Psychiatric: alert, normal mood/affect, oriented x 3 Skin: warm/dry, pallor Lymphatic: no adenopathy (Axillary, cervical) Data Review Radiology Date of Exam:08/05/21 FOOT, LEFT, 3 VIEWS INDICATION: Left 2nd toe dry gangrene. TECHNIQUE: 3 3 views of the left foot. CORRELATION STUDY: None. FINDINGS: Previous amputation at the proximal 1st metatarsal shaft. There is extensive soft tissue distortion and densities over the 2nd toe, consistent with the history of gangrene. No definitive foreign body. Osseous structures are somewhat obscured, particularly the distal aspect of the toe; however, there is question of some potential erosion at the distal and potentially middle phalanx of the toe. The remaining digits are otherwise unremarkable. There is noted a heterogeneous appearance about the particularly 1st tarsometatarsal articulation. This may be on a post operative basis. Additionally, there is some distortion of the tarsometatarsal articulations. Soft tissue is prominent with mild edema over the distal foot. Multiple clips within the soft tissues in the medial aspect of the ankle and foot. IMPRESSION: 1. Extensive soft tissue distortion of the 2nd toe. Concern for potential erosive change of the distal aspect of the 2nd toe. 2. Prior amputation of the 1st metatarsal. Dictated by: Dictated on workstation # [id number] Dict: 08/05/21 1537 Trans: 08/05/21 1046 [id number] Interpreted by: JEVON COLE DO Electronically signed by: JEVON COLE DO 08/05/21 5065 Assessment/Plan Assessment/Plan Assessment/Plan Anemia Dry Gangrene Left 2nd toe CAD, PVD, DM, HTN Pt is a very poor surgical candidate, would treat his anemia symptomatically and discuss further benefit of Colonoscopy and EGD. Technically he is due for both and would need both because of his anemia. Need to find out pt's wishes regarding major surgery; which may make us not want to do endoscopy. The toe amputation is not urgent at this time (especially b/c it isn't wet gangrene) however, he may have some Osteomyelitis. Work up could include an MRI, again need to sit down more with pt and find out definitive wishes; I know he doesn't want to lose his legs and therefore maybe taking the toe now would help that. Supervisory-Addendum Brief Verification & Attestation Participated in pt care: history, MDM, physical Personally performed: exam, history, MDM, supervision of care Care discussed with: Medical Student Procedures: n/a Verification and Attestation of Medical Student E/M Service A medical student performed and documented this service. I then reviewed and verified all information documented by the medical student and made modifications to such information, when appropriate. I personally performed a physical exam, medical decision making and then discussed any differences between the notes and made revisions as necessary to create one note. Timothy Thao , 08/05/21 , 19:45 DORIS GOMEZ Aug 05, 2021 15:40 TIMOTHY THAO DO Aug 05, 2021 19:32
--- NOTE | 2021-08-05 15:43 | Diagnostic Imaging Report ---
INDICATION: Left 2nd toe dry gangrene. TECHNIQUE: 3 3 views of the left foot. CORRELATION STUDY: None. FINDINGS: Previous amputation at the proximal 1st metatarsal shaft. There is extensive soft tissue distortion and densities over the 2nd toe, consistent with the history of gangrene. No definitive foreign body. Osseous structures are somewhat obscured, particularly the distal aspect of the toe; however, there is question of some potential erosion at the distal and potentially middle phalanx of the toe. The remaining digits are otherwise unremarkable. There is noted a heterogeneous appearance about the particularly 1st tarsometatarsal articulation. This may be on a post operative basis. Additionally, there is some distortion of the tarsometatarsal articulations. Soft tissue is prominent with mild edema over the distal foot. Multiple clips within the soft tissues in the medial aspect of the ankle and foot. IMPRESSION: 1. Extensive soft tissue distortion of the 2nd toe. Concern for potential erosive change of the distal aspect of the 2nd toe. 2. Prior amputation of the 1st metatarsal. Dictated by: Dictated on workstation # [id number]
[2021-08-05] MEDS ORDERED: NS IV 500 ML 500 ML IV SCH (16:45)
--- NOTE | 2021-08-05 17:02 | Consultation-Cardiology ---
HPI-Cardiology Cardiology Consultation Date of Consultation 08/05/21 Date of Admission Time Seen by Provider: 16:57 Indication: Shortness of breath HPI 70 years old gentleman with extensive peripheral arterial disease, coronary artery disease, chronic kidney disease and paroxysmal atrial fibrillation. Came into the emergency room for generalized weakness and loss of energy. Nausea and shortness of breath. Denied any chest pain. He has chronic leg pain. No syncope or near syncopal episode. He was noted to have severe anemia and chronic kidney disease. Home Medications & Allergies Allergies: Coded Allergies: morphine (Verified Allergy, Intermediate, SEVERE ITCHING, 08/15/15) peach (Unverified Allergy, Unknown, 08/14/15) Uncoded Allergies: contrex (Allergy, Unknown, 08/14/15) Home Medication List Reviewed: Yes EMS-Ostsep-Slvdic Hx Patient Social History Marital Status: Employed/Student: retired Smoking Status: Former Smoker (Smoked 1 pack per day since age 10. Quit smoking in 2018. 57 pack year smoker.) Type Used: Cigarettes 2nd Hand Smoke Exposure: Yes Recent Hopitalizations: Yes Alcohol Use?: No Immunizations Up To Date Tetanus Booster (TDap): Unknown Date of Pneumonia Vaccine: Aug 30, 2015 Date of Influenza Vaccine: Jul 27, 2015 Past Medical History Discussed below Family Medical History Family History: Cardiovascular disease 19 FATHER Deafness or hearing loss 19 FATHER Dementia 19 FATHER, Onset:Unknown Review of Systems-General Review of Systems Constitutional: No diaphoresis, No fever; malaise, weakness EENTM: blurred vision (Pt has cataracts); No hearing loss Respiratory: see HPI; No cough; dyspnea on exertion, short of breath (mostly on exertion when trying to walk especially) Cardiovascular: see HPI, palpitations (occasionally. No palpitations right now.), other (Pt described chest tightness sometimes. Not a specific pain.) Gastrointestinal: see HPI; No abdominal pain, No constipation; melena (Pt has dark bowel movements. He takes Iron) Genitourinary: see HPI; No decreased output, No dysuria Musculoskeletal: muscle pain (pain in legs occasionally.), muscle weakness (general weakness. In the legs also when trying to walk.) Skin: see HPI, change in color (redness in legs); No change in hair/nails Psychiatric/Neurological: Denies Headache; Weakness Reviewed Test Results Reviewed Test Results Lab Laboratory Tests Test 08/05/21 13:45 08/05/21 13:52 08/05/21 13:56 08/05/21 16:21 Range/Units White Blood Count 8.9 4.3-11.0 10^3/uL Red Blood Count 2.34 L 4.30-5.52 10^6/uL Hemoglobin 7.0 L 13.3-17.7 g/dL Hematocrit 25 L 40-54 % Mean Corpuscular Volume 106 H 80-99 fL Mean Corpuscular Hemoglobin 30 25-34 pg Mean Corpuscular Hemoglobin Concent 28 L 32-36 g/dL Red Cell Distribution Width 17.7 H 10.0-14.5 % Platelet Count 153 130-400 10^3/uL Mean Platelet Volume 13.5 H 9.0-12.2 fL Immature Granulocyte % (Auto) 0 % Neutrophils (%) (Auto) 83 H 42-75 % Lymphocytes (%) (Auto) 10 L 12-44 % Monocytes (%) (Auto) 6 0-12 % Eosinophils (%) (Auto) 0 0-10 % Basophils (%) (Auto) 0 0-10 % Neutrophils # (Auto) 7.4 1.8-7.8 10^3/uL Lymphocytes # (Auto) 0.9 L 1.0-4.0 10^3/uL Monocytes # (Auto) 0.6 0.0-1.0 10^3/uL Eosinophils # (Auto) 0.0 0.0-0.3 10^3/uL Basophils # (Auto) 0.0 0.0-0.1 10^3/uL Immature Granulocyte # (Auto) 0.0 0.0-0.1 10^3/uL Percent Immature Platelet Fraction 9.2 H 0.0-7.6 % Prothrombin Time 17.5 H 12.2-14.7 SEC INR Comment 1.4 0.8-1.4 Activated Partial Thromboplast Time 36 H 24-35 SEC Sodium Level 132 L 135-145 MMOL/L Potassium Level 6.1 H 3.6-5.0 MMOL/L Chloride Level 106 98-107 MMOL/L Carbon Dioxide Level 15 L 21-32 MMOL/L Anion Gap 11 5-14 MMOL/L Blood Urea Nitrogen 23 H 7-18 MG/DL Creatinine 1.43 H 0.60-1.30 MG/DL Estimat Glomerular Filtration Rate 49 BUN/Creatinine Ratio 16 Glucose Level 197 H 70-105 MG/DL Calcium Level 8.5 8.5-10.1 MG/DL Corrected Calcium 8.7 8.5-10.1 MG/DL Magnesium Level 2.2 1.6-2.4 MG/DL Total Bilirubin 0.8 0.1-1.0 MG/DL Aspartate Amino Transf (AST/SGOT) 23 5-34 U/L Alanine Aminotransferase (ALT/SGPT) 10 0-55 U/L Alkaline Phosphatase 54 40-136 U/L Myoglobin 91.3 10.0-92.0 NG/ML Troponin I 0.488 *H <0.028 NG/ML Total Protein 6.1 L 6.4-8.2 GM/DL Albumin 3.7 3.2-4.5 GM/DL Procalcitonin 0.05 <0.10 NG/ML Influenza Type A (RT-PCR) Not Detected Not Detecte Influenza Type B (RT-PCR) Not Detected Not Detecte SARS-CoV-2 RNA (RT-PCR) Not Detected Not Detecte Lactic Acid Level 3.09 *H 4.07 *H 0.50-2.00 MMOL/L Blood Gas Puncture Site L WRIST Blood Gas Patient Temperature 35.6 Arterial Blood pH 7.50 H 7.37-7.43 Arterial Blood Partial Pressure CO2 19 *L 35-45 MMHG Arterial Blood Partial Pressure O2 161 H 79-93 MMHG Arterial Blood HCO3 15 *L 23-27 MMOL/L Arterial Blood Total CO2 15.5 L 21.0-31.0 MMOL/L Arterial Blood Oxygen Saturation 101 H 94-100 % Arterial Blood Base Excess -8.1 L -2.5-2.5 MMOL/L Rashi Test UNK Blood Gas Ventilator Setting NO Blood Gas Inspired Oxygen UNK Test 08/05/21 16:51 Range/Units Glucometer 191 H 70-110 MG/DL Physical Exam Physical Exam Vital Signs Vital Signs - First Documented 08/05/21 13:37 Temp 36.5 Pulse 113 Resp 25 B/P (MAP) 116/65 (82) Pulse Ox 97 O2 Delivery Nasal Cannula O2 Flow Rate 3.00 Capillary Refill : Height, Weight, BMI Height: 6'0.00" Weight: 214lbs. 0.0oz. 97.290398ta; 28.00 BMI Method:Stated General Appearance: No Apparent Distress, WD/WN Eyes: Bilateral Eye Normal Inspection, Bilateral Eye PERRL, Bilateral Eye EOMI HEENT: PERRL/EOMI, TMs Normal, Normal ENT Inspection, Pharynx Normal, Moist Mucous Membranes Neck: Full Range of Motion, Normal Inspection, Non Tender, Supple, Carotid Bruit Respiratory: Chest Non Tender, Normal Breath Sounds, No Accessory Muscle Use, No Respiratory Distress Cardiovascular: No Gallop, No JVD, Systolic Murmur, Irregularly Irregular Gastrointestinal: Normal Bowel Sounds, No Organomegaly, No Pulsatile Mass, Non Tender, Soft Back: Normal Inspection, No CVA Tenderness, No Vertebral Tenderness Extremity: Other (Gangrenous toe) Neurologic/Psychiatric: Alert, Oriented x3, No Motor/Sensory Deficits, Normal Mood/Affect Skin: Normal Color, Warm/Dry Lymphatic: No Adenopathy A/P-Cardiology Admission Diagnosis Generalized weakness Anemia Acute renal insufficiency Type II myocardial infarction Assessment/Plan Generalized weakness and loss of energy, anemia, reporting black stool. Seen by Dr. Edge, possible endoscopy Acute on chronic kidney disease, started on IV fluid, monitor renal function Paroxysmal atrial fibrillation, back in atrial fibrillation with tachycardia, responded to Cardizem drip, I will titrate the drip down to keep his blood pressure and heart rate stable. Elevated troponin, probably type II myocardial infarction due to atrial fibrillation with rapid ventricular response and severe anemia. Underlying coronary artery disease cannot be excluded and it will be monitored closely. Patient cannot tolerate anticoagulation at this point Coronary artery disease, history of stenting in the remote past, reporting having a stress test done in [place] recently, last stress test was done in [place] was in [address] Gallo Extensive peripheral arterial disease, multiple surgeries and multiple intervention, has gangrenous left foot and dry gangrene of his toe, he has seen Dr. Tim in [place] recently and patient recall that he was told it will order to amputate his toe. He has absent pulses in his foot. Hypertension, monitor blood pressure Hyperlipidemia, continue on statin JUAN RAMON RUSHING MD Aug 05, 2021 17:02
--- NOTE | 2021-08-05 17:24 | Tele-ICU Consult ---
History of Present Illness History of Present Illness Date Seen by Provider: Aug 05, 2021 Time Seen by Provider: 17:23 Date of Admission Reason for Visit: Shortness of breath Allergies and Home Medications Allergies Coded Allergies: morphine (Verified Allergy, Intermediate, SEVERE ITCHING, 08/15/15) peach (Unverified Allergy, Unknown, 08/14/15) Uncoded Allergies: contrex (Allergy, Unknown, 08/14/15) Home Medications Albuterol Sulfate 1 Puff Puff, 2 PUFF IH QID PRN for SHORTNESS OF BREATH, (Reported) 1 PUFF = 90 MCG Amiodarone HCl 200 Mg Tablet, 400 MG PO DAILY, (Reported) TAKES 2 (200MG) TABLETS Budesonide/Formoterol Fumarate 10.2 Gm Hfa.aer.ad, 1 PUFF IH BID, (Reported) Cholecalciferol (Vitamin D3) 50,000 Unit Capsule, 50,000 UNIT PO We, (Reported) Clopidogrel Bisulfate 75 Mg Tablet, 75 MG PO DAILY, (Reported) Fenofibrate 48 Mg Tab, 96 MG PO DAILY, (Reported) TAKES 2 (48MG) TABLETS Ferrous Sulfate 324 Mg Tablet.dr, 324 MG PO TID, (Reported) Fish Oil/Dha/Epa 1 Each Capsule, 2,400 MG PO DAILY, (Reported) TAKES 2 (1200MG) CAPSULES Fish Oil/Dha/Epa 1 Each Capsule, 1,200 MG PO HS, (Reported) Gabapentin 300 Mg Capsule, 600 MG PO TID, (Reported) TAKES 2 (300MG) CAPSULES Insulin Aspart 100 Unit/1 Ml Susp, SQ AC, (Reported) Insulin Glargine,Hum.rec.anlog 100 Unit/1 Ml Vial, 30 UNIT SC BID, (Reported) Levothyroxine Sodium 25 Mcg Tablet, 25 MCG PO HS, (Reported) Lisinopril 10 Mg Tablet, 10 MG PO DAILY, (Reported) Metoprolol Tartrate 25 Mg Tablet, 12.5 MG PO BID, (Reported) TAKES 1/2 (25MG) TABLET Omeprazole 20 Mg Capsule.dr, 40 MG PO DAILY, (Reported) TAKES 2 (20MG) CAPSULES Rivaroxaban 20 Mg Tablet, 20 MG PO 1700, (Reported) Rosuvastatin Calcium 40 Mg Tablet, 20 MG PO HS, (Reported) TAKES 1/2 (40MG) TABLET Trazodone HCl 50 Mg Tablet, 50 MG PO HS, (Reported) Past Medical/Social/Family Hx Patient Social History Marrital Status: Employed/Student: retired Tobacco Use?: No Smoking Status: Former Smoker (Smoked 1 pack per day since age 10. Quit smoking in 2018. 57 pack year smoker.) Substance use?: No Alcohol Use?: No Pt stated abuse/neglect: Yes Immunizations Up To Date Influenza Vaccine Up-to-Date: Yes; Up-to-Date Tetanus Booster (TDap): Unknown TB Skin Test: None Date of Pneumonia Vaccine: Aug 30, 2015 Current Status Primary Language: Tajik Preferred Spoken Language: Frisian Implanted or Applied Medical D: Stents Review of Systems Constitutional: see HPI Sepsis Event Evaluation Height, Weight, BMI Height: 6'0.00" Weight: 214lbs. 0.0oz. 97.249754ft; 28.00 BMI Method:Stated Exam Exam Patient acknowledged, consented, and participated in this virtual visit which was conducted using real time audio/video Vital Signs Date Time Temp Pulse Resp B/P (MAP) Pulse Ox O2 Delivery O2 Flow Rate FiO2 08/05/21 17:05 36.5 113 97 08/05/21 17:00 67 15 90/53 91 08/05/21 16:15 78 08/05/21 16:03 36.0 75 22 104/61 (75) 98 Room Air 08/05/21 16:00 85 10 88/58 97 08/05/21 15:35 36.5 87 17 111/62 99 Room Air 08/05/21 14:20 NIV CPAP 08/05/21 13:37 36.5 113 25 116/65 (82) 08/05/21 13:37 97 Nasal Cannula 3.00 Height & Weight Height: 6'0.00" Weight: 214lbs. 0.0oz. 97.833281oh; 28.00 BMI Method:Stated General Appearance: No Apparent Distress, WD/WN HEENT: PERRL/EOMI, TMs Normal, Normal ENT Inspection, Pharynx Normal, Moist Mucous Membranes Neck: Full Range of Motion, Normal Inspection, Non Tender, Supple, Carotid Bruit Respiratory: Chest Non Tender, Normal Breath Sounds, No Accessory Muscle Use, No Respiratory Distress Cardiovascular: No Gallop, No JVD, Systolic Murmur, Irregularly Irregular Peripheral Pulses: 1+ Dorsalis Pedis (R), 1+ Left Dors-Pedis (L); 2+ Radial Pulses (R), 2+ Radial Pulses (L) Gastrointestinal: normal bowel sounds, non tender, soft, no organomegaly, no pulsatile mass Extremity: Other (Gangrenous toe) Neurologic/Psychiatric: Alert, Oriented x3, No Motor/Sensory Deficits, Normal Mood/Affect Skin: Normal Color, Warm/Dry Lymphatic: No Adenopathy Results Lab Laboratory Tests 08/05/21 13:45 Assessment/Plan Assessment/Plan (Tele-ICU Physician , consultation) Available chart/ vitals / labs / Images reviewed H&P is from ER notes Patient's information available about PMH, Shx, Fhx allergy reviewed in EMR. ROS as per chart and RN report Now in ICU, hemodynamically stable Video assessment done using teleICU camera, rest of exam as per RN Discussed with RN. Consultants: stephen cooper Hospital course: 08/05- to ICU fron ER with a fib RVR . SOB , anemia, scott gangrene A/P PAF . RVR on admission - rate control with Cardizem gtt, on amio po CLERICAL SUPPORT SPECIALIST - echo ordered -TSH ordered - AC with lovenox ( CLERICAL SUPPORT SPECIALIST on xarelto TORI/ARF -Likely in setting of hypovolemia and intravascular volume depletion with anemia - also on JEWELS -I -Hydration to cont -monitor lytes and acisdosis -Duran placement HyperKalemia - Tx in ER with CA, kayaxalate and insulin IV - estefanía follow Elev trop - follow, as per [facility] Anemia, reporting black stool- suspected GIB - hb 7 on admission - to be transfuse 1 U pRBC - monitor for bleed - on xrelto and plavix CLERICAL SUPPORT SPECIALIST PAD - on Plavix COPD - not in exacerbation Dyspnea on pesentation - was not huypoxic , probably due to combintion of Afib-RVR and anemia ID - wound on the left second toe- dry gangrene (the left great toe has previously been amputated) - vaccinaed for COVID DM II - ISS AJAY - CPAP - compliant Lines : (Central Line Necessity Reviewed) Duran: OG: Nutrition: Analgesia: Anxiety/ delirium VTE Prophylaxis: xarelto Stress Ulcer Prophylaxis: PPI Plans in collaboration with bedside consultants and IM MDs. Discussed with RN to reach out if any questions or concerns A total of 35 minutes of critical care time was devoted to this patient today, required to treat and/or prevent further deterioration of critical care condition ( as above ) . ROCHELLE BERMUDEZ MD Aug 05, 2021 17:24
[2021-08-05] MEDS ORDERED: METO50TA7 PO (17:36)
[2021-08-05] MEDS ORDERED: METO-310 PO (17:36)
[2021-08-05] MEDS ORDERED: LISI5TAB20 PO (17:36)
[2021-08-05] MEDS ORDERED: LEVO75CA5 PO (17:36)
[2021-08-05] MEDS ORDERED: TIZA-186 PO (17:36)
[2021-08-05] MEDS ORDERED: INSU100V6 SQ (17:36)
[2021-08-05] MEDS ORDERED: FAMO40TA6 PO (17:36)
[2021-08-05] MEDS ORDERED: CHOL-11 PO (17:36)
[2021-08-05] MEDS ORDERED: PROM25TA14 PO (17:36)
[2021-08-05] MEDS ORDERED: DILT120C10 PO (17:36)
[2021-08-05] MEDS ORDERED: CEPH500C PO (17:36)
[2021-08-05] MEDS ORDERED: RT-ALBUTEROL HFA 8.5 GM INHALER IH SCH (18:00)
[2021-08-05] MEDS ORDERED: CATHETER FLUSH 10 ML SYR IV PRN (18:00)
[2021-08-05] MEDS ORDERED: PIPERACILLIN/TAZO 4.5 GM/NS 100 ML IV NR ×2 (18:15)
[2021-08-05] MEDS ORDERED: VANCOMYCIN INJECTION 0.1 MG in NS (IVPB) 250 ML IV SCH (18:15)
[2021-08-05 18:45] LABS: POTASSIUM 6.1 MMOL/L (3.6-5.0)
[2021-08-05 18:46] LABS: CALCIUM 7.8 MG/DL (8.5-10.1); POTASSIUM 6.1 MMOL/L (3.6-5.0)
[2021-08-05 18:51] LABS: CREATININE SERUM 1.5 MG/DL (0.60-1.30)
[2021-08-05] MEDS: dilTIAZem DRIP PRE-MIX 125 ML IV SCH (18:53)
[2021-08-05] MEDS: VANCOMYCIN 2000 MG/NS 500 ML IVPB IV SCH ×2 (18:55)
[2021-08-05] MEDS ORDERED: RT-ALBUTEROL SULF 2.5 MG/3 ML PRE-MIX VIAL INH PRN (19:00)
[2021-08-05] MEDS ORDERED: SOD POLYSTERENE 15 GM/60 ML (KAYEXALATE) UNIT DOSE PO NR (19:45)
[2021-08-05] MEDS: fentaNYL INJ 100 MCG/2 ML AMP IVP PRN (21:21)
[2021-08-05] MEDS: inSUlin ASPART (NovoLOG) 1 UNIT/0.01 ML (CHARGE PER UNIT) SC SCH (21:25)
[2021-08-05] MEDS: RT-ALBUTEROL SULF 2.5 MG/3 ML PRE-MIX VIAL INH SCH (21:30)
--- NOTE | 2021-08-05 21:44 | History & Physical-Hospitalist ---
History of Present Illness HPI/Chief Complaint Bill Chong is a 70 year old male with PMH HTN, insulin dependent diabetes mellitus, HLD, GERD, AFib, hypothyroidism, CAD, PAD, who presented feeling unwell. He has felt sick for a couple weeks. He reports nausea and vomiting. He feels short of breath. He denies fevers and chills. He reports chest heaviness. He denies palpitations. He denies cough. He denies diarrhea. He has a left second toe that is gangrenous. He follows with a physician at [facility] in and the plan is to let the toe auto-amputate. He has a history of femoral bypass surgery in his bilateral legs. He takes chronic Keflex. Source: patient, family Exam Limitations: no limitations Date Seen 08/05/21 Time Seen by a Provider: 17:45 Attending Physician Nettie Cope MD PCP No,Local Physician Referring Physician Date of Admission Aug 05, 2021 at 14:42 Home Medications & Allergies Home Medications Reviewed patient Home Medication Reconciliation performed by pharmacy medication reconciliations public address technician and/or nursing. Patients Allergies have been reviewed. Allergies Allergies Coded Allergies morphine (Verified Allergy, Intermediate, SEVERE ITCHING, 08/15/15) peach (Unverified Allergy, Unknown, 08/14/15) Uncoded Allergies contrex ( Allergy, Unknown, 08/14/15) Past Leqydws-Dnpivg-Qtdyur Hx Patient Social History Marrital Status: Employed/Student: retired Tobacco Use?: No Smoking Status: Former Smoker (Smoked 1 pack per day since age 10. Quit smoking in 2018. 57 pack year smoker.) Smokeless Tobacco Frequency: Never a User Use of E-Cig and/or Vaping dev: No Substance use?: No Alcohol Use?: No Pt feels they are or have been: No Immunizations Up To Date Date of Influenza Vaccine: Jul 02, 2021 First/Initial COVID19 Vaccinat: OCTOBER 2020 Second COVID19 Vaccination Rikki: NOVEMBER 2020 Tetanus Booster (TDap): Unknown Date of Pneumonia Vaccine: Aug 30, 2015 Seasonal Allergies Seasonal Allergies: No Current Status Advance Directives: Yes Advance Directive Location: Copy placed in chart Communicates: Verbally Primary Language: Iranian Preferred Spoken Language: Iranian Is interpretation needed?: No Sensory deficits: Vision impairment Implanted or Applied Medical D: Stents Past Medical History Surgeries: Amputation, CABG, Vascular Surgery (aorto-bifem, stents in legs) COPD, Emphysema Currently Using CPAP: Yes Currently Using BIPAP: No Atrial Fibrillation, Coronary Artery Disease, High Cholesterol, Hypertension, Peripheral Vascular Neuropathy Sexually Transmitted Disease: No HIV/AIDS: No Renal Failure Gastroesophageal Reflux, Martinez's Esophagus, Gastrointestinal Bleed Amputee, Arthritis, Chronic Back Pain Diabetes, Insulin dep Glaucoma Loss of Vision: Bilateral Hearing Impairment: Hard of Hearing Depression Blood Disorders: No Adverse Reaction/Blood Tranf: No Family Medical History Cardiovascular disease 19 FATHER Deafness or hearing loss 19 FATHER Dementia 19 FATHER, Onset:Unknown Cancer (1 brother pancreatic CA. 1 brother malignant melanoma. 1 brotherlung CA. one brother esophageal CA), CAD Under 55 Years Old (Father of Heart Dz at age 53), Diabetes (Mother) Review of Systems Constitutional: malaise, weakness EENTM: no symptoms reported Respiratory: short of breath Cardiovascular: chest pain Gastrointestinal: abdominal pain, nausea, vomiting Genitourinary: no symptoms reported Musculoskeletal: no symptoms reported Skin: no symptoms reported Psychiatric/Neurological: No Symptoms Reported Physical Exam Physical Exam Vital Signs Vital Signs - First Documented 08/05/21 08/05/21 13:37 20:15 Temp 36.5 Pulse 113 Resp 25 B/P (MAP) 116/65 (82) Pulse Ox 97 O2 Delivery Nasal Cannula O2 Flow Rate 3.00 FiO2 30 Capillary Refill : Height, Weight, BMI Height: 6'0.00" Weight: 214lbs. 0.0oz. 97.087943ug; 30.25 BMI Method:Stated General Appearance: Chronically ill, Mild Distress, Obese HEENT: PERRL/EOMI, Pharynx Normal Neck: Normal Inspection, Supple Respiratory: Lungs Clear, Normal Breath Sounds, No Respiratory Distress Cardiovascular: No Murmur; No Normal Peripheral Pulses; Irregularly Irregular Gastrointestinal: Normal Bowel Sounds, Soft, Tenderness Extremity: Non Tender, Pedal Edema, Other (left second toe gangrenous, left great toe amputated) Neurologic/Psychiatric: Alert, Depressed Affect, Motor Weakness Skin: Normal Color, Cool Results Results/Procedures Labs Laboratory Tests 08/05/21 13:45 08/05/21 18:14 Patient resulted labs reviewed. Imaging: Reviewed Imaging Report Assessment/Plan Admission Diagnosis Atrial fibrillation with rapid ventricular response Admission Status: Inpatient Order (span 2 midnights) Reason for Inpatient Admission: IV antiarrhythmics Assessment and Plan AFib with RVR NSTEMI Cardiology consulted IV Diltiazem Troponin elevated, trending up Given ASA Likey type II GA Septic shock Lactic acidosis Acute kidney injury on chronic kidney disease stage III SIRS+ with tachycardia and tachypnea No infectious source at this time Chest xray negative UA pending Blood cultures drawn Lactic acid significantly elevated Procal normal Begin Vancomycin and Zosyn Hyperkalemia Given insulin/D50 and kayexalate Peristent hyperkalemia Repeat kayexalate Anemia Hgb 7, baseline ~13 No evidence of acute blood loss Occult blood negative Monitor T2DM Sliding scale PAD Gangrenous toe Cardiology consulted ESR mildly elevated CRP normal XR foot with erosive changes Goals of care discussion Patient requests DNR, family in agreement Critical Care Critically Ill Patient Diagnosis/Problems Diagnosis/Problems (1) Atrial fibrillation with RVR Status: Acute (2) NSTEMI (non-ST elevation myocardial infarction) Status: Acute (3) Septic shock Status: Acute (4) Lactic acidosis Status: Acute (5) Acute kidney injury superimposed on chronic kidney disease Status: Acute (6) T2DM (type 2 diabetes mellitus) Status: Chronic Qualifiers: Diabetes mellitus nursing home insulin use: with nursing home use Diabetes mellitus complication status: with circulatory complication Diabetes mellitus complication detail: with peripheral angiopathy with gangrene Qualified Codes: E11.52 - Type 2 diabetes mellitus with diabetic peripheral angiopathy with gangrene; Z79.4 - senior care (current) use of insulin (7) PAD (peripheral artery disease) Status: Acute (8) Gangrenous toe Status: Acute (9) Hyperkalemia Status: Acute NETTIE COPE MD Aug 05, 2021 21:44
[2021-08-05 21:55] LABS: ABG OXYGEN SATURATION 100 % (94-100); ABG PCO2 22 MMHG (35-45); ABG PH 7.41 (7.37-7.43); ABG PO2 143 MMHG (79-93); ABG TCO2 14.6 MMOL/L (21.0-31.0)
[2021-08-05 21:58] LABS: INSPIRED O2 30%; PATIENT TEMP 36.3; VENTILATOR NO
[2021-08-05] MEDS: CATHETER FLUSH 10 ML SYR IV SCH (22:00)
[2021-08-06] MEDS: PIPERACILLIN/TAZOBACTAM (BULK) 4.5 GM in NS (IVPB) 100 ML IV SCH ×3 (00:34→17:10)
[2021-08-06 02:39] VITALS: BP 110/92
[2021-08-06] MEDS: RT-ALBUTEROL SULF 2.5 MG/3 ML PRE-MIX VIAL INH SCH ×3 (02:39→21:09)
[2021-08-06 03:46] LABS: BASOPHILS % (AUTO) 0 % (0-10); EOSINOPHILS % (AUTO) 0 % (0-10); HEMATOCRIT 24 % (40-54); HEMOGLOBIN 7.3 g/dL (13.3-17.7); LYMPHOCYTES # (AUTO) 0.9 10^3/uL (1.0-4.0); LYMPHOCYTES % (AUTO) 15 % (12-44); MEAN CORPUSCULAR HEMOGLOBIN 30 pg (25-34); MEAN CORPUSCULAR HGB CONC 30 g/dL (32-36); MEAN CORPUSCULAR VOLUME 99 fL (80-99); MEAN PLATELET VOLUME 13.2 fL (9.0-12.2); MONOCYTES # (AUTO) 0.5 10^3/uL (0.0-1.0); MONOCYTES % (AUTO) 8 % (0-12); NEUTROPHILS # (AUTO) 4.6 10^3/uL (1.8-7.8); NEUTROPHILS % (AUTO) 76 % (42-75); PLATELET COUNT 133 10^3/uL (130-400); WHITE BLOOD COUNT 6.1 10^3/uL (4.3-11.0)
[2021-08-06 03:47] LABS: POTASSIUM 4.3 MMOL/L (3.6-5.0)
[2021-08-06 03:48] LABS: CALCIUM 7.6 MG/DL (8.5-10.1)
[2021-08-06 03:52] LABS: CREATININE SERUM 1.3 MG/DL (0.60-1.30)
[2021-08-06 04:03] LABS: TRIGLYCERIDES 97 MG/DL (<150); VLDL CHOLESTEROL 19 MG/DL (5-40)
[2021-08-06 04:08] LABS: CHOLESTEROL 67 MG/DL (< 200)
[2021-08-06 04:09] LABS: HDL CHOLESTEROL 30 MG/DL (40-60)
[2021-08-06] MEDS: inSUlin ASPART (NovoLOG) 1 UNIT/0.01 ML (CHARGE PER UNIT) SC SCH ×4 (05:04→20:57)
[2021-08-06] MEDS: CATHETER FLUSH 10 ML SYR IV SCH ×3 (05:04→20:57)
--- NOTE | 2021-08-06 08:28 | Progress Note - Surgery ---
MIQUEL LEZAMA 08/06/21 0828: Subjective Date Seen by a Provider: Aug 06, 2021 Time Seen by a Provider: 06:55 Subjective/Events-last exam Patient was laying in bed and diesel automotive technician was performing scan of left leg. Patient in minimal distress. Patient on bipap, had shortness of breath and respiratory depression o/n. Patient had a difficult time communicating due to bipap but complained of shooting pain down leg with trembling. Patient stated this occurs frequently and tends to resolve after a bit. Patient breathing better on bipap. No new issues with his left leg. Review of Systems General: No Chills, No Night Sweats HEENT: No Head Aches, No Visual Changes Pulmonary: Dyspnea (o/n, now on bipap.) Cardiovascular: No: Chest Pain, Palpitations Gastrointestinal: No: Nausea, Vomiting Genitourinary: No Dysuria, No Frequency Musculoskeletal: No: neck pain, shoulder pain Neurological: No: Weakness, Numbness Focused Exam Lactate Level 08/05/21 22:52: Lactic Acid Level 3.85*H 08/06/21 01:05: Lactic Acid Level 2.71*H 08/06/21 03:15: Lactic Acid Level 2.00 Objective Exam Vital Signs Date Time Temp Pulse Resp B/P (MAP) Pulse Ox O2 Delivery O2 Flow Rate FiO2 08/06/21 07:00 96 16 113/63 99 NIV Bilevel 30.00 08/06/21 07:00 100 08/06/21 06:00 106 12 114/67 99 NIV Bilevel 30.00 08/06/21 05:00 104 15 95/62 100 NIV Bilevel 30.00 08/06/21 04:00 96 16 120/61 100 NIV Bilevel 30.00 08/06/21 04:00 36.9 30.00 08/06/21 04:00 98 NIV Bilevel 30 08/06/21 03:00 109 18 94/62 97 NIV Bilevel 30.00 08/06/21 02:39 101 18 99 30.00 08/06/21 02:00 93 18 110/92 100 NIV Bilevel 30.00 08/06/21 01:04 90 08/06/21 01:00 96 18 134/62 100 NIV Bilevel 30.00 08/06/21 00:00 98 NIV Bilevel 30 08/06/21 00:00 96 15 111/68 100 NIV Bilevel 30.00 08/06/21 00:00 36.7 08/05/21 23:00 82 17 105/66 98 NIV Bilevel 30.00 08/05/21 22:50 36.8 86 18 110/73 94 NIV Bilevel 30 08/05/21 22:37 36.6 77 18 116/65 97 NIV Bilevel 30 08/05/21 22:00 82 17 105/66 98 NIV Bilevel 30.00 08/05/21 22:00 36.6 86 20 105/66 98 NIV Bilevel 30 08/05/21 21:54 36.3 86 18 117/71 98 NIV Bilevel 30 08/05/21 21:49 36.3 86 18 117/71 98 NIV Bilevel 30.00 08/05/21 21:30 101 18 100 30.00 08/05/21 21:00 94 18 113/80 91 NIV Bilevel 30.00 08/05/21 21:00 36.2 101 21 113/80 100 NIV Bilevel 30 08/05/21 20:44 36.3 104 28 111/66 100 30 08/05/21 20:36 112 27 97 30.00 08/05/21 20:30 36.2 93 22 116/65 98 NIV Bilevel 30 08/05/21 20:17 134 40 90/51 90 High Flow N/C 10.00 08/05/21 20:15 90 High Flow N/C 10.00 08/05/21 20:15 36.5 96 18 106/45 100 NIV Bilevel 30 08/05/21 20:00 130 17 91 08/05/21 20:00 98 NIV Bilevel 30 08/05/21 19:14 88 08/05/21 19:00 80 11 90/81 91 08/05/21 18:00 73 11 90/81 91 08/05/21 17:05 36.5 113 97 08/05/21 17:00 67 15 90/53 91 08/05/21 16:15 78 08/05/21 16:03 94 Room Air 08/05/21 16:03 36.0 75 22 104/61 (75) 98 Room Air 08/05/21 16:00 85 10 88/58 97 08/05/21 15:35 36.5 87 17 111/62 99 Room Air 08/05/21 14:20 NIV CPAP 08/05/21 13:37 36.5 113 25 116/65 (82) 08/05/21 13:37 97 Nasal Cannula 3.00 I & O 08/06/21 07:00 Intake Total 1040 ml Output Total 1150 ml Balance -110 ml Capillary Refill : Less Than 3 Seconds General Appearance: Chronically ill, Mild Distress HEENT: PERRL/EOMI, Pharynx Normal Neck: Non Tender, Supple Respiratory: Chest Non Tender, Lungs Clear; No Crackles, No Wheezing; Other (Patient on bipap for respiratory depression o/n.) Cardiovascular: No Gallop, No Murmur, Irregularly Irregular Peripheral Pulses: 1+ Dorsalis Pedis (R), 1+ Left Dors-Pedis (L) (felt something but very faint. ); 2+ Radial Pulses (R), 2+ Radial Pulses (L) Gastrointestinal: non tender, soft, no organomegaly, no pulsatile mass Extremity: Non Tender, Other (left second toe gangrenous, left great toe amputated) Neurologic/Psychiatric: Alert, Oriented x3, Depressed Affect Skin: Normal Color, Cool; No Diaphoresis Lymphatic: No Adenopathy (cervical, axillary) Results Lab Laboratory Tests 08/05/21 13:45: White Blood Count 8.9, Red Blood Count 2.34L, Hemoglobin 7.0L, Hematocrit 25L, Mean Corpuscular Volume 106H, Mean Corpuscular Hemoglobin 30, Mean Corpuscular Hemoglobin Concent 28L, Red Cell Distribution Width 17.7H, Platelet Count 153, Mean Platelet Volume 13.5H, Immature Granulocyte % (Auto) 0, Neutrophils (%) (Auto) 83H, Lymphocytes (%) (Auto) 10L, Monocytes (%) (Auto) 6, Eosinophils (%) (Auto) 0, Basophils (%) (Auto) 0, Neutrophils # (Auto) 7.4, Lymphocytes # (Auto) 0.9L, Monocytes # (Auto) 0.6, Eosinophils # (Auto) 0.0, Basophils # (Auto) 0.0, Immature Granulocyte # (Auto) 0.0, Percent Immature Platelet Fraction 9.2H, Prothrombin Time 17.5H, INR Comment 1.4, Activated Partial Thromboplast Time 36H , Sodium Level 132L, Potassium Level 6.1H, Chloride Level 106, Carbon Dioxide Level 15L, Anion Gap 11, Blood Urea Nitrogen 23H, Creatinine 1.43H, Estimat Glomerular Filtration Rate 49, BUN/Creatinine Ratio 16, Glucose Level 197H, Calcium Level 8.5, Corrected Calcium 8.7, Magnesium Level 2.2, Total Bilirubin 0.8, Aspartate Amino Transf (AST/SGOT) 23, Alanine Aminotransferase (ALT/SGPT) 10, Alkaline Phosphatase 54, Myoglobin 91.3, Troponin I 0.488*H, Total Protein 6.1L, Albumin 3.7, Procalcitonin 0.05, Influenza Type A (RT-PCR) Not Detected, Influenza Type B (RT-PCR) Not Detected, SARS-CoV-2 RNA (RT-PCR) Not Detected 08/05/21 13:52: Lactic Acid Level 3.09*H 08/05/21 13:56: Blood Gas Puncture Site L WRIST, Blood Gas Patient Temperature 35.6, Arterial Blood pH 7.50H, Arterial Blood Partial Pressure CO2 19*L, Arterial Blood Partial Pressure O2 161H, Arterial Blood HCO3 15*L, Arterial Blood Total CO2 15.5L, Arterial Blood Oxygen Saturation 101H, Arterial Blood Base Excess -8.1L, Rashi Test UNK, Blood Gas Ventilator Setting NO, Blood Gas Inspired Oxygen UNK 08/05/21 16:21: Lactic Acid Level 4.07*H 08/05/21 16:51: Glucometer 191H 08/05/21 18:14: Erythrocyte Sedimentation Rate 53H, Sodium Level 132L, Potassium Level 6.1H, Chloride Level 107, Carbon Dioxide Level 14L, Anion Gap 11, Blood Urea Nitrogen 24H, Creatinine 1.50H, Estimat Glomerular Filtration Rate 46, BUN/Creatinine Ratio 16, Glucose Level 177H, Lactic Acid Level 2.75*H, Calcium Level 7.8L, Troponin I 0.933*H, C-Reactive Protein High Sensitivity 0.41, Procalcitonin 0.06 08/05/21 20:36: Lactic Acid Level 8.43*H 08/05/21 20:42: Stool Occult Blood Immunoassay NEGATIVE 08/05/21 21:24: Glucometer 173H 08/05/21 21:50: Blood Gas Puncture Site UNK, Blood Gas Patient Temperature 36.3, Arterial Blood pH 7.41, Arterial Blood Partial Pressure CO2 22L, Arterial Blood Partial Pressure O2 143H, Arterial Blood HCO3 14*L, Arterial Blood Total CO2 14.6L, Arterial Blood Oxygen Saturation 100, Arterial Blood Base Excess -10.0L, Rashi Test UNK, Blood Gas Ventilator Setting NO, Blood Gas Inspired Oxygen 30% 08/05/21 22:52: Lactic Acid Level 3.85*H 08/06/21 01:05: Lactic Acid Level 2.71*H 08/06/21 03:15: White Blood Count 6.1, Red Blood Count 2.42L, Hemoglobin 7.3L, Hematocrit 24L, Mean Corpuscular Volume 99, Mean Corpuscular Hemoglobin 30, Mean Corpuscular Hemoglobin Concent 30L, Red Cell Distribution Width 17.4H, Platelet Count 133, Mean Platelet Volume 13.2H, Immature Granulocyte % (Auto) 0, Neutrophils (%) (Auto) 76H, Lymphocytes (%) (Auto) 15, Monocytes (%) (Auto) 8, Eosinophils (%) (Auto) 0, Basophils (%) (Auto) 0, Neutrophils # (Auto) 4.6, Lymphocytes # (Auto) 0.9L, Monocytes # (Auto) 0.5, Eosinophils # (Auto) 0.0, Basophils # (Auto) 0.0, Immature Granulocyte # (Auto) 0.0, Sodium Level 135, Potassium Level 4.3, Chloride Level 108H, Carbon Dioxide Level 16L, Anion Gap 11, Blood Urea Nitrogen 21H, Creatinine 1.30, Estimat Glomerular Filtration Rate 55, BUN/Creatinine Ratio 16, Glucose Level 112H, Lactic Acid Level 2.00, Calcium Level 7.6L, Triglycerides Level 97, Cholesterol Level 67, LDL Cholesterol Direct 23, VLDL Cholesterol 19, HDL Cholesterol 30L Meds Item Value Date Time Miscellaneous IF VANCO TROUGH > 20, ... 08/08/21 1730 (TROUGH 1730/XX ORDER-PHARMACY ORDER (Not Lab)) Rosuvastatin 20 mg 08/06/21 2100 Calcium HS/PO (Crestor Tablet) Famotidine 40 mg 08/06/21 2100 (Pepcid Tablet) HS/PO Diltiazem HCl 120 mg 08/06/21 0900 (Cardizem Cd 24 DAILY@0900/PO Hr Capsule) Metoprolol 25 mg 08/06/21 0900 Succinate DAILY/PO (Toprol Xl Tablet) Lisinopril 5 mg 08/06/21 0900 (Zestril Tablet) DAILY/PO Piperacillin Sod/ 120 ml @ 30 mls/hr 08/06/21 0100 Tazobactam Sod Q8H/IV 08/06/21 0034 4.5 gm/Sodium Chloride Sodium Chloride 10-40 ML 08/05/21 2200 (Catheter Flush Q8HR/IV 08/06/21 0504 Syringe) Fentanyl Citrate 25 mcg 08/05/212114 (Sublimaze Q1H PRN/IVP 08/05/212120 Injection) Albuterol Sulfate 2.5 mg 08/05/21 2100 (Proventil RTQ6HR/INH 08/06/21 0239 Pre-Mix Nebs (Rt)) Insulin Aspart SLIDING SCALE B BLOO... 08/05/212099 (NovoLOG (CHARGE ACHS/SC PER UNIT)) Albuterol Sulfate 2.5 mg 08/05/21 1900 (Proventil Q2HR PRN/INH Pre-Mix Nebs (Rt)) Vancomycin HCl 520 ml @ 260 mls/hr 08/05/21 1830 2000 mg/Sodium Q24H/IV 08/05/21 1855 Chloride Sodium Chloride 10-40 ML 08/05/21 1800 (Catheter Flush NEEDED PRN/IV Syringe) Diltiazem HCl 125 ml @ 5 mls/hr 08/05/21 1800 Radiology New imaging: US of left leg was being completed as I was assessing patient. Report not completed as of this note. Assessment/Plan Assessment/Plan Assessment/Plan Anemia Dry Gangrene Left 2nd toe CAD, PVD, DM, HTN Continue IV fluids. Continue to treat anemia symptomatically Continue to discuss benefit of Colonoscopy and EGD with patient, patient still experiencing cardiac issues and is being tx. Monitor left foot for changes: reassess amputation at later time. Possible MRI for tissue changes. ANDREA EDGE DO 08/06/21 1451: Subjective Time Seen by a Provider: 08:41 Subjective/Events-last exam Pt seen and examined, no changes in abdominal pain. Pt did have some trouble breathing last night and put on Bipap. Still has leg pain. Nurse stated his FOB was negative. Review of Systems General: No Chills, No Night Sweats Pulmonary: Dyspnea (o/n, now on bipap.) Cardiovascular: No: Chest Pain, Palpitations Gastrointestinal: No: Nausea, Vomiting Objective Exam General Appearance: Chronically ill, Mild Distress HEENT: PERRL/EOMI Respiratory: Chest Non Tender, Lungs Clear; No Crackles, No Wheezing; Other (Patient on bipap for respiratory depression o/n.) Cardiovascular: No Murmur, Irregularly Irregular Gastrointestinal: non tender, soft, no organomegaly Neurologic/Psychiatric: Depressed Affect Skin: Cool; No Diaphoresis Assessment/Plan Assessment/Plan Assessment/Plan Anemia Dry Gangrene Left 2nd toe CAD, PVD, DM, HTN FOB was negative and discussed with pt the fact that he is a poor surgical candidate. Told him it is unlikely, but not impossible he has problem in colon causing his anemia. However, the only way to know for sure is to look. He stated that he would most likely not want an EGD or colonoscopy; because, he doesn't think he would want a major surgery. He will discuss with his sister and we can talk about it again. For now continue IV fluids, treat anemia symptomatically. Patient still experiencing cardiac issues and is being tx; these would increase risks for pt if any procedure was done. Monitor left foot for changes: reassess amputation at later time. Supervisory-Addendum Brief Verification & Attestation Participated in pt care: history, MDM, physical Personally performed: exam, history, MDM, supervision of care Care discussed with: Medical Student Procedures: n/a Verification and Attestation of Medical Student E/M Service A medical student performed and documented this service. I then reviewed and verified all information documented by the medical student and made modifications to such information, when appropriate. I personally performed a physical exam, medical decision making and then discussed any differences between the notes and made revisions as necessary to create one note. Andrea Edge , 08/06/21 , 14:51 MIQUEL LEZAMA Aug 06, 2021 08:28 ANDREA EDGE DO Aug 06, 2021 14:51
--- NOTE | 2021-08-06 08:32 | Diagnostic Imaging Report ---
TECHNIQUE: Live grayscale and color Doppler ultrasound was performed of the left lower extremity arterial system. REASON FOR EXAM: Peripheral arterial disease. Claudication. Left leg pain at rest. History of left toe amputation. COMPARISON: 04/09/2017. FINDINGS: Monophasic waveforms are seen in the common femoral and profunda femoris arteries on the left without elevated flow velocities. There is a stent from the proximal superficial femoral artery to the popliteal artery which is occluded. There is complete occlusion throughout the left superficial femoral artery. There is reconstitution of flow with monophasic waveforms at the popliteal artery with diminutive peak systolic velocities of 23 cm/s. Monophasic waveforms are seen in the anterior and posterior tibial arteries and dorsalis pedis artery with diminished peak systolic velocities. Atherosclerotic plaque is seen throughout the left lower extremity arterial system. IMPRESSION: 1. Complete occlusion of the left superficial femoral artery and stent from the proximal superficial femoral artery to the popliteal artery. This stent was occluded on the prior exam. 2. Monophasic waveforms throughout the visualized arteries of the left lower extremity. There is flow within the popliteal artery and arteries of the left calf secondary to collateral vasculature. This appearance is similar to the prior exam. 3. Moderate burden of atherosclerotic plaque throughout the arterial structures of the left lower extremity. Dictated by: Dictated on workstation # [id number]
[2021-08-06] MEDS: dilTIAZem120 MG (CARDIZEM CD) CAP PO SCH (08:42)
[2021-08-06] MEDS: lisINopril 5 MG (PRINIVIL) TABLET PO SCH (08:42)
[2021-08-06 08:48] VITALS: BP 110/92
--- NOTE | 2021-08-06 08:58 | Cardiology Progress Note ---
Subjective Date Seen by Provider: Aug 06, 2021 Time Seen by Provider: 08:56 Subjective/Events-last exam Patient is laying down in bed, feeling better. No new complaint Review of Systems General: No Chills, No Night Sweats, No Fatigue, No Malaise, No Appetite, No Other HEENT: No Head Aches, No Visual Changes, No Eye Pain, No Ear Pain, No Dysphasia, No Sinus Congestion, No Post Nasal Drip, No Sore Throat, No Other Pulmonary: No Dyspnea, No Cough, No Pleuritic Chest Pain, No Other Cardiovascular: No: Chest Pain, Palpitations, Orthopnea, Paroxysmal Noc. Dyspnea, Edema, Lt Headedness, Other Focused Exam Lactate Level 08/05/21 22:52: Lactic Acid Level 3.85*H 08/06/21 01:05: Lactic Acid Level 2.71*H 08/06/21 03:15: Lactic Acid Level 2.00 Objective-Cardiology Exam Last Set of Vital Signs Vital Signs 08/06/21 08/06/21 08/06/21 08/06/21 04:00 08:00 08:35 08:48 Temp 36.6 Pulse 95 Resp 18 B/P (MAP) 88/51 Pulse Ox 100 O2 Delivery NIV Bilevel O2 Flow Rate 30.00 FiO2 30 I&O Intake and Output 08/06/21 00:00 Intake Total 740 ml Output Total 400 ml Balance 340 ml Intake Oral 240 ml IV Total 500 ml Output Urine Total 400 ml # Bowel Movements 1 Daily Weight Change No General: Alert, Oriented X3, Cooperative HEENT: Atraumatic, PERRLA Neck: Supple, No JVD, No Thyromegaly Lungs: Clear to Auscultation, Normal Air Movement Heart: Normal S1, Normal S2, Other (Atrial fibrillation) Abdomen: Normal Bowel Sounds, Soft, No Tenderness, No Hepatosplenomegaly, No Masses Extremities: Other (Gangrene of the right foot) Skin: Other (Right first toe gangrene) Neuro: Normal Speech, Normal Tone, Sensation Intact Psych/Mental Status: Mental Status NL, Mood NL Results Lab Laboratory Tests 08/05/21 13:45 08/05/21 18:14 08/06/21 03:15 A/P-Cardiology Admission Diagnosis Generalized weakness Anemia Acute renal insufficiency Type II myocardial infarction Assessment/Plan Generalized weakness and loss of energy, anemia, reporting black stool, stool for occult blood is negative, managed by Dr. Edge. Need to restart oral anticoagulation and platelets inhibitors once okay with Dr. Edge Acute on chronic kidney disease, responding to IV fluid and improving. Continue to monitor Paroxysmal atrial fibrillation, back in atrial fibrillation with tachycardia, I will switch Cardizem drip to oral and monitor Elevated troponin, probably type II myocardial infarction due to atrial fibrillation with rapid ventricular response and severe anemia. Underlying coronary artery disease cannot be excluded and it will be monitored closely. Patient cannot tolerate anticoagulation at this point Coronary artery disease, history of stenting in the remote past, reporting having a stress test done in [place] recently, last stress test was done in [place] was in [address] Gallo Extensive peripheral arterial disease, multiple surgeries and multiple intervention, has gangrenous left foot and dry gangrene of his toe, he has seen Dr. Tim in [place] recently and patient recall that he was told it will order to amputate his toe. He has absent pulses in his foot. Need referral back to the vascular surgeon Hypertension, monitor blood pressure Hyperlipidemia, continue on statin JUAN RAMON RUSHING MD Aug 06, 2021 08:58
[2021-08-06] MEDS ORDERED: NS (IVPB) 250 ML ONE (09:01)
[2021-08-06] MEDS: fentaNYL INJ 100 MCG/2 ML AMP IVP PRN ×2 (09:31→18:49)
--- NOTE | 2021-08-06 11:12 | Progress Note - Hospitalist ---
Subjective HPI/CC On Admission Date Seen by Provider: Aug 06, 2021 Time Seen by Provider: 09:00 Bill Chong is a 70 year old male with PMH HTN, insulin dependent diabetes mellitus, HLD, GERD, AFib, hypothyroidism, CAD, PAD, who presented feeling unwell. He has felt sick for a couple weeks. He reports nausea and vomiting. He feels short of breath. He denies fevers and chills. He reports chest heaviness. He denies palpitations. He denies cough. He denies diarrhea. He has a left second toe that is gangrenous. He follows with a physician at [facility] in and the plan is to let the toe auto-amputate. He has a history of femoral bypass surgery in his bilateral legs. He takes chronic Keflex. Subjective/Events-last exam He is feeling a little better today. He is having chills. He is having pain in his left foot. Focused Exam Lactate Level 08/05/21 22:52: Lactic Acid Level 3.85*H 08/06/21 01:05: Lactic Acid Level 2.71*H 08/06/21 03:15: Lactic Acid Level 2.00 Objective Exam Vital Signs Vital Signs Date Time Temp Pulse Resp B/P (MAP) Pulse Ox O2 Delivery O2 Flow Rate FiO2 08/06/21 10:00 84 16 109/59 95 NIV Bilevel 30.00 08/06/21 08:35 36.6 08/06/21 08:00 30 Capillary Refill : Less Than 3 Seconds General Appearance: No Apparent Distress, Chronically ill, Obese Respiratory: Lungs Clear, Normal Breath Sounds, No Respiratory Distress Cardiovascular: No Edema; No Normal Peripheral Pulses; Irregularly Irregular, Tachycardia Gastrointestinal: Normal Bowel Sounds, Non Tender, Soft Extremity: Non Tender, No Pedal Edema Neurologic/Psychiatric: Alert, Oriented x3, No Motor/Sensory Deficits, Depressed Affect Skin: Other (left great toe amputated, second toe completely gangrenous, third toe tip blackened) Results/Procedures Lab Laboratory Tests 08/05/21 13:45 08/05/21 18:14 08/06/21 03:15 Patient resulted labs reviewed. Imaging: Reviewed Imaging Report Assessment/Plan Assessment and Plan Assess & Plan/Chief Complaint AFib with RVR NSTEMI Cardiology consulted IV Diltiazem Troponin elevated, trending up Given ASA Likey type II MS Septic shock Lactic acidosis Acute kidney injury on chronic kidney disease stage III SIRS+ with tachycardia and tachypnea No infectious source at this time Chest xray negative UA pending Blood cultures drawn Lactic acid significantly elevated on arrival, normalized Procal normal Continue Vancomycin and Zosyn Anemia Hgb 7 on arrival, 7.3 this morning, baseline ~13 No evidence of acute blood loss Occult blood negative Anticoagulation held per surgery T2DM Sliding scale PAD Gangrenous toe Cardiology consulted Ultrasound with severe PAD Cardiology recommends follow up with vascular surgery Resume anticoagulation when ok with surgery Goals of care discussion Patient requests DNR, family in agreement Hyperkalemia, resolved Critical Care Critically Ill Patient Diagnosis/Problems Diagnosis/Problems (1) Atrial fibrillation with RVR Status: Acute (2) NSTEMI (non-ST elevation myocardial infarction) Status: Acute (3) Septic shock Status: Acute (4) Lactic acidosis Status: Acute (5) Acute kidney injury superimposed on chronic kidney disease Status: Acute (6) T2DM (type 2 diabetes mellitus) Status: Chronic Qualifiers: Diabetes mellitus shelter insulin 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
[2021-08-06] MEDS ORDERED: GABA300C PO (14:28)
[2021-08-06] MEDS ORDERED: LEVO150T6 PO (15:12)
[2021-08-06] MEDS: dilTIAZem DRIP PRE-MIX 125 ML IV SCH (16:53)
[2021-08-06] MEDS: VANCOMYCIN 2000 MG/NS 500 ML IVPB IV SCH ×2 (17:29)
[2021-08-06] MEDS: FAMOTIDINE 20 MG (PEPCID) TABLET PO SCH (20:56)
[2021-08-06] MEDS: ROSUVASTATIN 20 MG (CRESTOR) TABLET PO SCH (20:56)
--- NOTE | 2021-08-06 21:50 | Progress Note ---
Standard Progress Note Progress Notes/Assess & Plan Date Seen by a Provider: Aug 06, 2021 Time Seen by a Provider: 21:50 Progress/Assessment & Plan takes Tramadol at home 50 mg, at night, wants to continue in hosp, will order Focused Exam Lactate Level 08/05/21 22:52: Lactic Acid Level 3.85*H 08/06/21 01:05: Lactic Acid Level 2.71*H 08/06/21 03:15: Lactic Acid Level 2.00 XOCHITL MEDRANO MD Aug 06, 2021 21:50
[2021-08-06] MEDS: traZODone 50 MG (DESYREL) TAB PO SCH (22:28)
[2021-08-07] MEDS: PIPERACILLIN/TAZOBACTAM (BULK) 4.5 GM in NS (IVPB) 100 ML IV SCH ×3 (01:50→16:21)
[2021-08-07] MEDS: RT-ALBUTEROL SULF 2.5 MG/3 ML PRE-MIX VIAL INH SCH ×4 (02:43→20:41)
[2021-08-07] MEDS: CATHETER FLUSH 10 ML SYR IV SCH ×3 (05:24→21:48)
[2021-08-07 05:50] LABS: BASOPHILS % (AUTO) 0 % (0-10); EOSINOPHILS % (AUTO) 1 % (0-10); HEMATOCRIT 27 % (40-54); MEAN CORPUSCULAR HEMOGLOBIN 30 pg (25-34); MEAN CORPUSCULAR HGB CONC 30 g/dL (32-36); MEAN CORPUSCULAR VOLUME 100 fL (80-99)
[2021-08-07 05:52] LABS: LYMPHOCYTES # (AUTO) 0.7 10^3/uL (1.0-4.0); LYMPHOCYTES % (AUTO) 12 % (12-44); MEAN PLATELET VOLUME 13.1 fL (9.0-12.2); MONOCYTES # (AUTO) 0.5 10^3/uL (0.0-1.0); MONOCYTES % (AUTO) 9 % (0-12); NEUTROPHILS # (AUTO) 4.5 10^3/uL (1.8-7.8); NEUTROPHILS % (AUTO) 78 % (42-75); PLATELET COUNT 148 10^3/uL (130-400); WHITE BLOOD COUNT 5.8 10^3/uL (4.3-11.0)
[2021-08-07 06:11] LABS: POTASSIUM 3.9 MMOL/L (3.6-5.0)
[2021-08-07 06:17] LABS: CREATININE SERUM 1.18 MG/DL (0.60-1.30); PHOSPHORUS 3.3 MG/DL (2.3-4.7)
[2021-08-07] MEDS: inSUlin ASPART (NovoLOG) 1 UNIT/0.01 ML (CHARGE PER UNIT) SC SCH ×4 (06:37→20:29)
--- NOTE | 2021-08-07 07:42 | Progress Note - Surgery ---
MIQUEL LEZAMA 08/07/21 0742: Subjective Date Seen by a Provider: Aug 07, 2021 Time Seen by a Provider: 07:05 Subjective/Events-last exam Patient resting in bed. Patient breathing better. Bipap was removed yesterday. No respiratory issues o/n. No new sx with left leg and left foot. Patient denies chest pain, palpitations, nausea, vomiting, diarrhea, lightheadedness, dizziness. Review of Systems General: No Chills, No Night Sweats HEENT: No Head Aches, No Visual Changes Pulmonary: No Dyspnea, No Cough Cardiovascular: No: Chest Pain, Palpitations Gastrointestinal: No: Nausea, Vomiting, Abdominal Pain Genitourinary: No Dysuria, No Frequency Musculoskeletal: No: neck pain, shoulder pain Neurological: No: Weakness, Numbness Focused Exam Lactate Level 08/05/21 22:52: Lactic Acid Level 3.85*H 08/06/21 01:05: Lactic Acid Level 2.71*H 08/06/21 03:15: Lactic Acid Level 2.00 Objective Exam Vital Signs Date Time Temp Pulse Resp B/P (MAP) Pulse Ox O2 Delivery O2 Flow Rate FiO2 08/07/21 06:42 100 Room Air 08/07/21 06:00 89 16 98 Room Air 08/07/21 05:00 87 18 99/58 96 Room Air 08/07/21 04:00 77 26 101/57 98 Room Air 08/07/21 04:00 93 Room Air 08/07/21 03:30 84 28 108/57 100 Room Air 08/07/21 02:30 121 24 108/72 93 Room Air 08/07/21 01:00 94 08/07/21 01:00 98 17 91/63 97 Room Air 08/07/21 00:00 91 107/66 99 Room Air 08/06/21 23:59 94 Room Air 08/06/21 23:00 94 13 103/59 96 Room Air 08/06/21 22:30 109 18 105/61 96 Room Air 08/06/21 21:09 93 Room Air 08/06/21 21:00 99 105/66 100 Room Air 08/06/21 20:00 36.0 08/06/21 20:00 96 Room Air 08/06/21 20:00 80 26 102/67 97 Room Air 08/06/21 19:26 35.7 96 18 97/55 97 Room Air 08/06/21 19:03 99 08/06/21 18:00 99 17 102/73 98 NIV Bilevel 30.00 08/06/21 17:00 116 11 110/58 91 NIV Bilevel 30.00 08/06/21 16:00 36.4 08/06/21 16:00 95 Room Air 08/06/21 16:00 98 26 107/71 100 NIV Bilevel 30.00 08/06/21 15:00 86 21 93/49 98 NIV Bilevel 30.00 08/06/21 14:00 88 94/57 97 NIV Bilevel 30.00 08/06/21 13:00 94 14 103/56 96 NIV Bilevel 30.00 08/06/21 12:22 86 08/06/21 12:00 95 Room Air 08/06/21 12:00 101 22 94/50 94 NIV Bilevel 30.00 08/06/21 11:38 35.7 08/06/21 11:00 98 14 106/56 94 NIV Bilevel 30.00 08/06/21 10:00 84 16 109/59 95 NIV Bilevel 30.00 08/06/21 09:00 80 36 110/50 99 NIV Bilevel 30.00 08/06/21 08:48 95 18 100 30.00 08/06/21 08:35 36.6 08/06/21 08:00 89 15 88/51 99 NIV Bilevel 30.00 08/06/21 08:00 98 NIV Bilevel 30 I & O 08/07/21 07:00 Intake Total 800 ml Output Total 1075 ml Balance -275 ml Capillary Refill : Less Than 3 Seconds General Appearance: No Apparent Distress, Chronically ill HEENT: PERRL/EOMI, Pharynx Normal, Moist Mucous Membranes; No Scleral Icterus (L), No Scleral Icterus (R) Neck: Non Tender, Supple Respiratory: Chest Non Tender, Lungs Clear, No Accessory Muscle Use, No Respiratory Distress; No Crackles, No Wheezing; Other (Patient on bipap for r espiratory depression o/n.) Cardiovascular: Regular Rate, Rhythm, No Gallop, No Murmur, Irregularly Irregu lar Peripheral Pulses: 1+ Dorsalis Pedis (R), 1+ Left Dors-Pedis (L) (felt something but very faint. ); 2+ Radial Pulses (R), 2+ Radial Pulses (L) Gastrointestinal: non tender, soft, no organomegaly Extremity: Non Tender, No Pedal Edema Neurologic/Psychiatric: Alert, Oriented x3, No Motor/Sensory Deficits, Depressed Affect Skin: Cool; No Diaphoresis, No Jaundice Lymphatic: No Adenopathy (cervical, axillary) Results Lab Laboratory Tests 08/06/21 10:15: Glucometer 127H 08/06/21 15:56: Glucometer 112H 08/06/21 20:53: Glucometer 110 08/07/21 05:20: White Blood Count 5.8, Red Blood Count 2.69L, Hemoglobin 8.0L, Hematocrit 27L, Mean Corpuscular Volume 100H, Mean Corpuscular Hemoglobin 30, Mean Corpuscular Hemoglobin Concent 30L, Red Cell Distribution Width 17.0H, Platelet Count 148, Mean Platelet Volume 13.1H, Immature Granulocyte % (Auto) 0, Neutrophils (%) (Auto) 78H, Lymphocytes (%) (Auto) 12, Monocytes (%) (Auto) 9, Eosinophils (%) (Auto) 1, Basophils (%) (Auto) 0, Neutrophils # (Auto) 4.5, Lymphocytes # (Auto) 0.7L, Monocytes # (Auto) 0.5, Eosinophils # (Auto) 0.0, Basophils # (Auto) 0.0, Immature Granulocyte # (Auto) 0.0, Percent Immature Platelet Fraction 11.5H, Sodium Level 137, Potassium Level 3.9, Chloride Level 108H, Carbon Dioxide Level 17L, Anion Gap 12, Blood Urea Nitrogen 13, Creatinine 1.18, Estimat Glomerular Filtration Rate 61, BUN/Creatinine Ratio 11, Glucose Level 102, Calcium Level 8.0L, Phosphorus Level 3.3, Magnesium Level 2.0 Microbiology 08/05/21 Blood Culture - Preliminary, Resulted No growth 08/05/21 MRSA Screen - Final, Complete MRSA not isolated Assessment/Plan Assessment/Plan Assessment/Plan Anemia Dry Gangrene Left 2nd toe CAD, PVD, DM, HTN Continue IV fluids, treat anemia symptomatically, Hgb trending up. Monitor respiratory sx - patient off bipap, no new depression. Patient has been tx for cardiac issues, continue tx; Monitor left foot for changes - no new changes, reassess amputation at later time. ANDREA EDGE DO 08/07/21 1519: Subjective Time Seen by a Provider: 12:55 Subjective/Events-last exam Pt seen and examined, he has BiPap back on. Daughter is in the room. Pt's main complaint is leg pain. Review of Systems General: Fatigue Pulmonary: No Dyspnea, No Cough Cardiovascular: No: Chest Pain, Palpitations Gastrointestinal: No: Nausea, Vomiting, Abdominal Pain Genitourinary: No Dysuria, No Frequency Musculoskeletal: leg pain Objective Exam General Appearance: Chronically ill, Mild Distress HEENT: PERRL/EOMI Respiratory: Accessory Muscle Use; No Crackles; Decreased Breath Sounds; No Wheezing; Other (Patient on bipap for respiratory depression o/n.) Cardiovascular: No Murmur, Irregularly Irregular Gastrointestinal: non tender, soft, no organomegaly Extremity: Pedal Edema, Other (erythema, edema, no change with toe) Neurologic/Psychiatric: Depressed Affect Assessment/Plan Assessment/Plan Assessment/Plan Anemia Dry Gangrene Left 2nd toe CAD, PVD, DM, HTN Plan to treat anemia symptomatically, pt is not a good surgical candidate; at this point he and his daughter want to just keep him pain free. Hold off on any endoscopy. Monitor respiratory sx - patient off bipap. Patient has been tx for cardiac issues, continue tx; Would not recommend amputation Supervisory-Addendum Brief Verification & Attestation Participated in pt care: history, MDM, physical Personally performed: exam, history, MDM, supervision of care Care discussed with: Medical Student Procedures: n/a Verification and Attestation of Medical Student E/M Service A medical student performed and documented this service. I then reviewed and verified all information documented by the medical student and made modifications to such information, when appropriate. I personally performed a physical exam, medical decision making and then discussed any differences between the notes and made revisions as necessary to create one note. Andrea Edge , 08/07/21 , 15:40 MIQUEL LEZAMA Aug 07, 2021 07:42 ANDREA EDGE DO Aug 07, 2021 15:19
[2021-08-07] MEDS: lisINopril 5 MG (PRINIVIL) TABLET PO SCH (08:27)
[2021-08-07] MEDS: dilTIAZem120 MG (CARDIZEM CD) CAP PO SCH (08:27)
--- NOTE | 2021-08-07 09:47 | Tele-ICU Progress Note ---
Subjective Date Seen by a Provider: Aug 07, 2021 Time Seen by a Provider: 09:47 Sepsis Event Evaluation Height, Weight, BMI Height: 6'0.00" Weight: 214lbs. 0.0oz. 97.739736fr; 30.25 BMI Method:Stated Focused Exam Lactate Level 08/05/21 22:52: Lactic Acid Level 3.85*H 08/06/21 01:05: Lactic Acid Level 2.71*H 08/06/21 03:15: Lactic Acid Level 2.00 Exam Exam Patient acknowledged, consented, and participated in this virtual visit which was conducted using real time audio/video Vital Signs Date Time Temp Pulse Resp B/P (MAP) Pulse Ox O2 Delivery O2 Flow Rate FiO2 08/07/21 09:00 100 11 100 Room Air 08/07/21 08:00 93 Room Air 08/07/21 08:00 101 13 105/65 97 Room Air 08/07/21 07:47 35.5 08/07/21 07:00 92 14 98 Room Air 08/07/21 07:00 97 08/07/21 06:42 100 Room Air 08/07/21 06:00 89 16 98 Room Air 08/07/21 05:00 87 18 99/58 96 Room Air 08/07/21 04:00 77 26 101/57 98 Room Air 08/07/21 04:00 93 Room Air 08/07/21 03:30 84 28 108/57 100 Room Air 08/07/21 02:30 121 24 108/72 93 Room Air 08/07/21 01:00 94 08/07/21 01:00 98 17 91/63 97 Room Air 08/07/21 00:00 91 107/66 99 Room Air 08/06/21 23:59 94 Room Air 08/06/21 23:00 94 13 103/59 96 Room Air 08/06/21 22:30 109 18 105/61 96 Room Air 08/06/21 21:09 93 Room Air 08/06/21 21:00 99 105/66 100 Room Air 08/06/21 20:00 36.0 08/06/21 20:00 96 Room Air 08/06/21 20:00 80 26 102/67 97 Room Air 08/06/21 19:26 35.7 96 18 97/55 97 Room Air 08/06/21 19:03 99 08/06/21 18:00 99 17 102/73 98 NIV Bilevel 30.00 08/06/21 17:00 116 11 110/58 91 NIV Bilevel 30.00 08/06/21 16:00 36.4 08/06/21 16:00 95 Room Air 08/06/21 16:00 98 26 107/71 100 NIV Bilevel 30.00 08/06/21 15:00 86 21 93/49 98 NIV Bilevel 30.00 08/06/21 14:00 88 94/57 97 NIV Bilevel 30.00 08/06/21 13:00 94 14 103/56 96 NIV Bilevel 30.00 08/06/21 12:22 86 08/06/21 12:00 95 Room Air 08/06/21 12:00 101 22 94/50 94 NIV Bilevel 30.00 08/06/21 11:38 35.7 08/06/21 11:00 98 14 106/56 94 NIV Bilevel 30.00 08/06/21 10:00 84 16 109/59 95 NIV Bilevel 30.00 I & O 08/07/21 07:00 Intake Total 800 ml Output Total 1075 ml Balance -275 ml Height & Weight Height: 6'0.00" Weight: 214lbs. 0.0oz. 97.518731ot; 30.25 BMI Method:Stated General Appearance: No Apparent Distress, Chronically ill HEENT: PERRL/EOMI, Pharynx Normal, Moist Mucous Membranes; No Scleral Icterus (L), No Scleral Icterus (R) Neck: Non Tender, Supple Respiratory: Chest Non Tender, Lungs Clear, No Accessory Muscle Use, No Respiratory Distress; No Crackles, No Wheezing; Other (Patient on bipap for respiratory depression o/n.) Cardiovascular: Regular Rate, Rhythm, No Gallop, No Murmur, Irregularly Irregular Capillary Refill: Less Than 3 Seconds Peripheral Pulses: 1+ Dorsalis Pedis (R), 1+ Left Dors-Pedis (L) (felt something but very faint. ); 2+ Radial Pulses (R), 2+ Radial Pulses (L) Gastrointestinal: non tender, soft, no organomegaly Extremity: Non Tender, No Pedal Edema Neurologic/Psychiatric: Alert, Oriented x3, No Motor/Sensory Deficits, Depressed Affect Skin: Cool; No Diaphoresis, No Jaundice Lymphatic: No Adenopathy (cervical, axillary) Results Lab Laboratory Tests 08/05/21 13:45 08/05/21 18:14 08/06/21 03:15 08/07/21 05:20 Assessment/Plan Assessment/Plan Available chart/ vitals / labs / Images reviewed Video assessment done using teleICU camera, rest of exam as per RN Discussed with RN , EXAM PER RN Events overnight : , on bipap Afebrile FiO2 - 30% -- >RA I/O = pos 300 Drips: Pressors: , hemodynamically stable Consultants: stephen cooper Hospital course: 08/05- to ICU fron ER with a fib RVR . SOB , anemia, scott gangrene , s/p transfuse 1 U pRBC A/P PAF . 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 SPECIALIST , po cardizem initiated - AC with lovenox ( PROJECT SPECIALIST on xarelto TORI/ARF -Likely in setting of hypovolemia and intravascular volume depletion with anemia - also on JEWELS -I -improved with hydration HyperKalemia - Tx in ER with CA, kayaxalate and insulin IV - - normlized Elev trop - follow, as per cards Anemia, reporting bloody stools - s/p transfuse 1 U pRBC - hb 7.3, stable at 8 today - monitor for bleed - on xrelto and plavix PROJECT SPECIALIST - as per Sx PAD - on Plavix- to resume when OK with x and cards COPD - not in exacerbation Dyspnea on pesentation - was not hypoxic, probably due to combintion of Afib-RVR and anemia ID - wound on the left second toe- dry gangrene (the left great toe has previously been amputated) - cx negativ - vaccinaed for COVID DM II - ISS AJAY - CPAP - compliant - on 06/25 overnight Lines : (Central Line Necessity Reviewed) Duran: 08/05 OG: Nutrition: Analgesia: Anxiety/ delirium VTE Prophylaxis: xarelto Stress Ulcer Prophylaxis: PPI Plans in collaboration with bedside consultants and IM MDs. Discussed with RN to reach out if any questions or concerns A total of 35 minutes of critical care time was devoted to this patient today, required to treat and/or prevent further deterioration of critical care condition ( as above ) . ROCHELLE BERMUDEZ MD Aug 07, 2021 09:47
--- NOTE | 2021-08-07 10:53 | Cardiology Progress Note ---
Subjective Date Seen by Provider: Aug 07, 2021 Time Seen by Provider: 10:52 Subjective/Events-last exam Patient is laying down in bed, still complaining of nausea, no vomiting. Left foot pain Review of Systems General: No Chills, No Night Sweats; Fatigue, Malaise; No Appetite, No Other HEENT: No Head Aches, No Visual Changes, No Eye Pain, No Ear Pain, No Dysphasia, No Sinus Congestion, No Post Nasal Drip, No Sore Throat, No Other Pulmonary: No Dyspnea, No Cough, No Pleuritic Chest Pain, No Other Cardiovascular: No: Chest Pain, Palpitations, Orthopnea, Paroxysmal Noc. Dyspnea, Edema, Lt Headedness, Other Focused Exam Lactate Level 08/05/21 22:52: Lactic Acid Level 3.85*H 08/06/21 01:05: Lactic Acid Level 2.71*H 08/06/21 03:15: Lactic Acid Level 2.00 Objective-Cardiology Exam Last Set of Vital Signs Vital Signs 08/06/21 08/06/21 08/07/21 08/07/21 08/07/21 08:00 18:00 07:47 08:00 09:00 Temp 35.5 Pulse 100 Resp 11 B/P (MAP) 105/65 Pulse Ox 100 O2 Delivery Room Air O2 Flow Rate 30.00 FiO2 30 I&O Intake and Output 08/07/21 00:00 Intake Total 1100 ml Output Total 1625 ml Balance -525 ml Intake Oral 1100 ml Output Urine Total 1625 ml # Bowel Movements 1 General: Alert, Oriented X3, Cooperative HEENT: Atraumatic, PERRLA Neck: Supple, No JVD, No Thyromegaly Lungs: Clear to Auscultation, Normal Air Movement Heart: Normal S1, Normal S2, Other (Atrial fibrillation) Abdomen: Normal Bowel Sounds, Soft, No Tenderness, No Hepatosplenomegaly, No Masses Extremities: Other (Gangrene of the right foot) Skin: Other (Left first toe gangrene) Neuro: Normal Speech, Normal Tone, Sensation Intact Psych/Mental Status: Mental Status NL, Mood NL Results Lab Laboratory Tests 08/07/21 05:20 A/P-Cardiology Admission Diagnosis Generalized weakness Anemia Acute renal insufficiency Type II myocardial infarction Assessment/Plan Generalized weakness and loss of energy, anemia, reporting black stool, stool for occult blood is negative, managed by Dr. Edge. Need to restart oral anticoagulation and platelets inhibitors once okay with Dr. Edge Acute on chronic kidney disease, responding to IV fluid and improving. Continue to monitor Paroxysmal atrial fibrillation, back in atrial fibrillation with tachycardia, tolerating oral Cardizem. Continue to monitor Elevated troponin, probably type II myocardial infarction due to atrial fibrillation with rapid ventricular response and severe anemia. Underlying coronary artery disease cannot be excluded and it will be monitored closely. Patient cannot tolerate anticoagulation at this point Coronary artery disease, history of stenting in the remote past, reporting having a stress test done in [place] recently, last stress test was done in [place] was in [address] Gallo Extensive peripheral arterial disease, multiple surgeries and multiple intervention, has gangrenous left foot and dry gangrene of his toe, he has seen Dr. Tim in [place] recently and patient recall that he was told it will order to amputate his toe. He has absent pulses in his foot. Need referral back to the vascular surgeon Hypertension, monitor blood pressure Hyperlipidemia, continue on statin JUAN RAMON RUSHING MD Aug 07, 2021 10:53
--- NOTE | 2021-08-07 11:56 | Progress Note - Hospitalist ---
Subjective HPI/CC On Admission Date Seen by Provider: Aug 07, 2021 Time Seen by Provider: 10:15 Bill Chong is a 70 year old male with PMH HTN, insulin dependent diabetes mellitus, HLD, GERD, AFib, hypothyroidism, CAD, PAD, who presented feeling unwell. He has felt sick for a couple weeks. He reports nausea and vomiting. He feels short of breath. He denies fevers and chills. He reports chest heaviness. He denies palpitations. He denies cough. He denies diarrhea. He has a left second toe that is gangrenous. He follows with a physician at [facility] in and the plan is to let the toe auto-amputate. He has a history of femoral bypass surgery in his bilateral legs. He takes chronic Keflex. Subjective/Events-last exam He is doing about the same. He is still having left foot pain. He is just feeling overall unwell. Focused Exam Lactate Level 08/05/21 22:52: Lactic Acid Level 3.85*H 08/06/21 01:05: Lactic Acid Level 2.71*H 08/06/21 03:15: Lactic Acid Level 2.00 Objective Exam Vital Signs Vital Signs Date Time Temp Pulse Resp B/P (MAP) Pulse Ox O2 Delivery O2 Flow Rate FiO2 08/07/21 11:00 93 14 120/88 98 Room Air 08/07/21 07:47 35.5 08/06/21 18:00 30.00 08/06/21 08:00 30 Capillary Refill : Less Than 3 Seconds General Appearance: Chronically ill, Obese Respiratory: Lungs Clear, Normal Breath Sounds, No Respiratory Distress Cardiovascular: No Murmur; No Normal Peripheral Pulses; Irregularly Irregular Gastrointestinal: Normal Bowel Sounds, Non Tender, Soft Extremity: Pedal Edema, Swelling, Other (left great toe s/p amputation, second toe gangrenous, surrounding erythema and tenderness ) Neurologic/Psychiatric: Alert, Depressed Affect Skin: Warm/Dry, Erythema Results/Procedures Lab Laboratory Tests 08/07/21 05:20 Patient resulted labs reviewed. Imaging: Reviewed Imaging Report Assessment/Plan Assessment and Plan Assess & Plan/Chief Complaint PAD Gangrenous toe Cellulitis Cardiology consulted Ultrasound with severe PAD Cardiology recommends follow up with vascular surgery Resume anticoagulation when ok with surgery Blood cultures with no growth Stop Vancomycin Continue Zosyn AFib with RVR NSTEMI Cardiology consulted Transitioned to oral diltiazem Planning to resume anticoagulation today Likey type II [place] Anemia Hgb trending up No evidence of acute blood loss Occult blood negative T2DM Sliding scale Chronic kidney disease stage III Monitor Hyperkalemia, resolved Lactic acidosis, resolved Septic shock, resolved Diagnosis/Problems Diagnosis/Problems (1) Cellulitis of left foot Status: Acute (2) Atrial fibrillation with RVR Status: Acute (3) NSTEMI (non-ST elevation myocardial infarction) Status: Acute (4) Septic shock Status: Resolved Resolution Date/Time: 08/07/21 @ 11:56 (5) Lactic acidosis Status: Resolved Resolution Date/Time: 08/07/21 @ 11:56 (6) Acute kidney injury superimposed on chronic kidney disease Status: Resolved Resolution Date/Time: 08/07/21 @ 11:56 (7) T2DM (type 2 diabetes mellitus) Status: Chronic Qualifiers: Diabetes mellitus termite exterminator helper insulin use: with termite exterminator helper use Diabetes mellitus complication status: with circulatory complication Diabetes mellitus complication detail: with peripheral angiopathy with gangrene Qualified Codes: E11.52 - Type 2 diabetes mellitus with diabetic peripheral angiopathy with gangrene; Z79.4 - assisted (current) use of insulin (8) PAD (peripheral artery disease) Status: Acute (9) Gangrenous toe Status: Acute (10) Hyperkalemia Status: Resolved Resolution Date/Time: 08/07/21 @ 11:56 (11) CKD (chronic kidney disease) stage 3, GFR 30-59 ml/min Status: Chronic Qualifiers: Chronic kidney disease stage 3 subtype: stage 3a (GFR 45-59) Qualified Codes: N18.31 - Chronic kidney disease, stage 3a REGINO COPE MD Aug 07, 2021 11:56
[2021-08-07] MEDS: fentaNYL INJ 100 MCG/2 ML AMP IVP PRN ×3 (13:21→20:28)
[2021-08-07] MEDS: RIVAROXABAN 20 MG TABLET (XARELTO) PO SCH (16:20)
[2021-08-07] MEDS: CLOPIDOGREL 75 MG (PLAVIX) TABLET PO SCH (16:20)
[2021-08-07] MEDS: dilTIAZem DRIP PRE-MIX 125 ML IV SCH (16:21)
[2021-08-07] MEDS: FAMOTIDINE 20 MG (PEPCID) TABLET PO SCH (20:28)
[2021-08-07] MEDS: traZODone 50 MG (DESYREL) TAB PO SCH ×2 (20:28→20:31)
[2021-08-07] MEDS: ROSUVASTATIN 20 MG (CRESTOR) TABLET PO SCH (20:28)
[2021-08-08] MEDS: PIPERACILLIN/TAZOBACTAM (BULK) 4.5 GM in NS (IVPB) 100 ML IV SCH ×3 (01:23→16:41)
[2021-08-08] MEDS: RT-ALBUTEROL SULF 2.5 MG/3 ML PRE-MIX VIAL INH SCH ×4 (02:38→22:11)
[2021-08-08] MEDS: fentaNYL INJ 100 MCG/2 ML AMP IVP PRN (06:24)
[2021-08-08 06:25] LABS: CALCIUM 7.9 MG/DL (8.5-10.1)
[2021-08-08 06:29] LABS: PHOSPHORUS 3.3 MG/DL (2.3-4.7)
[2021-08-08 06:30] LABS: CREATININE SERUM 1.13 MG/DL (0.60-1.30)
[2021-08-08] MEDS: CATHETER FLUSH 10 ML SYR IV SCH ×3 (06:34→20:53)
[2021-08-08] MEDS: inSUlin ASPART (NovoLOG) 1 UNIT/0.01 ML (CHARGE PER UNIT) SC SCH ×4 (06:34→20:53)
[2021-08-08] MEDS: POTASSIUM CL 10MEQ/50ML IVPB 50 ML IV SCH (06:37)
[2021-08-08] MEDS: KCL 20 MEQ TAB (K-DUR) PO SCH (06:38)
[2021-08-08] MEDS: MAGNESIUM 1 GM/100 ML IVPB 100 ML IV SCH (06:38)
[2021-08-08 06:47] LABS: BASOPHILS % (AUTO) 0 % (0-10); EOSINOPHILS % (AUTO) 0 % (0-10); HEMATOCRIT 26 % (40-54); HEMOGLOBIN 7.7 g/dL (13.3-17.7); LYMPHOCYTES # (AUTO) 0.6 10^3/uL (1.0-4.0); LYMPHOCYTES % (AUTO) 11 % (12-44); MEAN CORPUSCULAR HEMOGLOBIN 30 pg (25-34); MEAN CORPUSCULAR HGB CONC 30 g/dL (32-36); MEAN CORPUSCULAR VOLUME 99 fL (80-99); MEAN PLATELET VOLUME 13.1 fL (9.0-12.2); MONOCYTES # (AUTO) 0.5 10^3/uL (0.0-1.0); MONOCYTES % (AUTO) 9 % (0-12); NEUTROPHILS % (AUTO) 79 % (42-75); PLATELET COUNT 119 10^3/uL (130-400); WHITE BLOOD COUNT 5.1 10^3/uL (4.3-11.0)
--- NOTE | 2021-08-08 07:36 | Progress Note - Surgery ---
MIQUEL LEZAMA 08/08/21 0736: Subjective Date Seen by a Provider: Aug 08, 2021 Time Seen by a Provider: 07:05 Subjective/Events-last exam Patient was resting in bed, stated he was comfortable. No respiratory issues o/n. Had bowel movement with no blood but states he has some abdominal discomf ort. No changes with extremities. Patient still has trembling pain sensation that occurs sporadically. Patient denies fever, chills, nausea, vomiting, shortness of breath, chest pain, palpitations, dizziness, lightheadedness, vision changes and paresthesia. Review of Systems General: No Chills, No Night Sweats HEENT: No Head Aches, No Visual Changes Pulmonary: No Dyspnea, No Cough Cardiovascular: No: Chest Pain, Palpitations Gastrointestinal: Abdominal Pain (Mild diffuse.); No: Nausea, Vomiting Genitourinary: No Dysuria, No Frequency Musculoskeletal: No: neck pain, shoulder pain Neurological: No: Weakness, Numbness Focused Exam Lactate Level 08/05/21 22:52: Lactic Acid Level 3.85*H 08/06/21 01:05: Lactic Acid Level 2.71*H 08/06/21 03:15: Lactic Acid Level 2.00 Objective Exam Vital Signs Date Time Temp Pulse Resp B/P (MAP) Pulse Ox O2 Delivery O2 Flow Rate FiO2 08/08/21 06:00 101 19 148/64 98 Room Air 08/08/21 05:00 93 21 111/70 99 Room Air 08/08/21 04:00 93 Room Air 08/08/21 04:00 84 15 100/50 97 Room Air 08/08/21 03:00 96 25 146/84 99 Room Air 08/08/21 02:38 100 Room Air 08/08/21 02:00 74 18 118/56 99 Room Air 08/08/21 01:00 89 08/08/21 01:00 89 17 146/67 100 Room Air 08/08/21 00:00 75 18 135/100 98 Room Air 08/08/21 00:00 93 Room Air 08/07/21 23:00 70 18 137/100 100 Room Air 08/07/21 22:00 122 20 146/51 95 Room Air 08/07/21 21:00 85 14 127/72 98 Room Air 08/07/21 20:41 96 Room Air 08/07/21 20:00 93 Room Air 08/07/21 20:00 89 16 136/68 100 Room Air 08/07/21 19:51 36.5 08/07/21 19:00 86 08/07/21 19:00 86 16 130/71 93 Room Air 08/07/21 18:00 77 15 150/74 100 Room Air 08/07/21 17:00 88 14 135/118 99 Room Air 08/07/21 16:00 93 Room Air 08/07/21 16:00 36.3 08/07/21 16:00 76 11 126/60 98 Room Air 08/07/21 15:05 96 Room Air 08/07/21 15:00 81 24 100/58 100 Room Air 08/07/21 14:00 76 10 99/58 100 Room Air 08/07/21 13:00 98 26 119/62 100 Room Air 08/07/21 12:49 94 08/07/21 12:00 93 Room Air 08/07/21 12:00 96 22 100 Room Air 08/07/21 11:00 93 14 120/88 98 Room Air 08/07/21 10:00 87 14 117/92 98 Room Air 08/07/21 09:00 100 11 100 Room Air 08/07/21 08:00 93 Room Air 08/07/21 08:00 101 13 105/65 97 Room Air 08/07/21 07:47 35.5 I & O 08/08/21 07:00 Intake Total 1210 ml Output Total 1345 ml Balance -135 ml Capillary Refill : Less Than 3 Seconds General Appearance: No Apparent Distress, Chronically ill HEENT: PERRL/EOMI, Pharynx Normal; No Scleral Icterus (L), No Scleral Icterus (R) Neck: Non Tender, Supple Respiratory: Chest Non Tender, Lungs Clear, No Accessory Muscle Use, No Respiratory Distress; No Crackles, No Wheezing Cardiovascular: No Gallop, No Murmur, Irregularly Irregular Peripheral Pulses: 1+ Dorsalis Pedis (R), 1+ Left Dors-Pedis (L) (felt something but very faint. ); 2+ Radial Pulses (R), 2+ Radial Pulses (L) Gastrointestinal: non tender, soft, no organomegaly Extremity: Pedal Edema, Other (erythema, edema, no change with toe) Neurologic/Psychiatric: Alert, Oriented x3, No Motor/Sensory Deficits, Depressed Affect Skin: Normal Color, Cool, Erythema Lymphatic: No Adenopathy (cervical, axillary) Results Lab Laboratory Tests 08/07/21 12:16: Glucometer 126H 08/07/21 15:24: Glucometer 129H 08/07/21 20:11: Glucometer 116H 08/08/21 05:10: Sodium Level 136, Potassium Level 4.0, Chloride Level 108H, Carbon Dioxide Level 17L, Anion Gap 11, Blood Urea Nitrogen 10, Creatinine 1.13, Estimat Glomerular Filtration Rate 64, BUN/Creatinine Ratio 9, Glucose Level 133H, Calcium Level 7.9L, Phosphorus Level 3.3, Magnesium Level 2.0 08/08/21 06:20: Glucometer 121H 08/08/21 06:30: White Blood Count 5.1, Red Blood Count 2.59L, Hemoglobin 7.7L, Hematocrit 26L, Mean Corpuscular Volume 99, Mean Corpuscular Hemoglobin 30, Mean Corpuscular Hemoglobin Concent 30L, Red Cell Distribution Width 16.3H, Platelet Count 119L, Mean Platelet Volume 13.1H, Immature Granulocyte % (Auto) 0, Neutrophils (%) (Auto) 79H, Lymphocytes (%) (Auto) 11L, Monocytes (%) (Auto) 9, Eosinophils (%) (Auto) 0, Basophils (%) (Auto) 0, Neutrophils # (Auto) 4.0, Lymphocytes # (Auto) 0.6L, Monocytes # (Auto) 0.5, Eosinophils # (Auto) 0.0, Basophils # (Auto) 0.0, Immature Granulocyte # (Auto) 0.0, Smear Scan Microbiology 08/05/21 Blood Culture - Preliminary, Resulted No growth 08/05/21 MRSA Screen - Final, Complete MRSA not isolated Meds Item Value Date Time Potassium Chloride 50 ml @ 0 mls/hr 08/08/21 0600 Magnesium Sulfate/ 100 ml @ 0 mls/hr 08/08/21 0600 Dextrose DAILY@0600/IV Potassium Chloride 40 meq 08/08/21 0600 (K Dur Tablet) DAILY@0600/PO Rivaroxaban 20 mg 08/07/21 1700 (Xarelto Tablet) DAILY@1700/PO 08/07/21 1620 Clopidogrel 75 mg 08/07/21 1330 Bisulfate DAILY@0900/PO 08/07/21 1620 (Plavix Tablet) Trazodone HCl 50 mg 08/06/212214 (Desyrel Tablet) HS/PO Rosuvastatin 20 mg 08/06/212099 Calcium HS/PO 08/07/212027 (Crestor Tablet) Famotidine 40 mg 08/06/212099 (Pepcid Tablet) HS/PO 08/07/212027 Diltiazem HCl 120 mg 08/06/21 0900 (Cardizem Cd 24 DAILY@0900/PO 08/07/21 0827 Hr Capsule) Metoprolol 25 mg 08/06/21 0900 Succinate DAILY/PO 08/07/21 08 (Toprol Xl Tablet) Lisinopril 5 mg 08/06/21 0900 (Zestril Tablet) DAILY/PO 08/07/21 08 Piperacillin Sod/ 120 ml @ 30 mls/hr 08/06/21 0100 Tazobactam Sod Q8H/IV 08/08/21 0123 4.5 gm/Sodium Chloride Sodium Chloride 10-40 ML 08/05/212199 (Catheter Flush Q8HR/IV 08/08/21 0634 Syringe) Fentanyl Citrate 25 mcg 08/05/212114 (Sublimaze Q1H PRN/IVP 08/08/21 0624 Injection) Albuterol Sulfate 2.5 mg 08/05/212099 (Proventil RTQ6HR/INH 08/08/21 0238 Pre-Mix Nebs (Rt)) Insulin Aspart SLIDING SCALE B BLOO... 08/05/212099 (NovoLOG (CHARGE ACHS/SC PER UNIT)) Albuterol Sulfate 2.5 mg 08/05/21 1900 (Proventil Q2HR PRN/INH Pre-Mix Nebs (Rt)) Sodium Chloride 10-40 ML 08/05/21 1800 (Catheter Flush NEEDED PRN/IV Syringe) Diltiazem HCl 125 ml @ 5 mls/hr 08/05/21 1800 Assessment/Plan Assessment/Plan Assessment/Plan Anemia Dry Gangrene Left 2nd toe CAD, PVD, DM, HTN Plan to treat anemia symptomatically - hgb dropped from 8 to 7.7 since yesterday. Pt is not a good surgical candidate; patient is still talking to family about plan. Hold off on any endoscopy. Monitor respiratory sx - patient had no respiratory sx o/n. Patient has been tx for cardiac issues, continue tx; Would not recommend amputation. Will continue to follow. ANDREA EDGE DO 08/08/21 1228: Subjective Time Seen by a Provider: 11:41 Subjective/Events-last exam Pt seen and examined, no BiPap on. Breathing ok, still has leg pain. Sister at bedside. Pt states he does feel a little bloated and has some mild abd tenderness. Review of Systems General: No Chills, No Night Sweats Pulmonary: No Dyspnea, No Cough Cardiovascular: No: Chest Pain, Palpitations Gastrointestinal: Abdominal Pain (Mild diffuse.); No: Nausea, Vomiting Musculoskeletal: leg pain Objective Exam General Appearance: No Apparent Distress, Chronically ill Respiratory: Lungs Clear, No Accessory Muscle Use, No Respiratory Distress; No Crackles, No Wheezing Cardiovascular: No Murmur, Irregularly Irregular Gastrointestinal: soft, no organomegaly, tenderness (very mild tenderness) Extremity: Other (erythema, edema, toe actually looks dried and more black - may be starting to auto-amputate) Assessment/Plan Assessment/Plan Assessment/Plan Anemia Dry Gangrene Left 2nd toe CAD, PVD, DM, HTN Plan to treat anemia symptomatically - hgb dropped from 8 to 7.7 since yesterd ay. Pt is not a good surgical candidate; patient and family are in agreement about plan to hold off on any endoscopy. Will sign of and reconsult if needed. Supervisory-Addendum Brief Verification & Attestation Participated in pt care: history, MDM, physical Personally performed: exam, history, MDM, supervision of care Care discussed with: Medical Student Procedures: n/a Verification and Attestation of Medical Student E/M Service A medical student performed and documented this service. I then reviewed and verified all information documented by the medical student and made modifications to such information, when appropriate. I personally performed a physical exam, medical decision making and then discussed any differences between the notes and made revisions as necessary to create one note. Andrea Edge , 08/08/21 , 12:28 MIQUEL LEZAMA Aug 08, 2021 07:36 ANDREA EDGE DO Aug 08, 2021 12:28
[2021-08-08] MEDS: dilTIAZem120 MG (CARDIZEM CD) CAP PO SCH (08:18)
[2021-08-08] MEDS: CLOPIDOGREL 75 MG (PLAVIX) TABLET PO SCH (08:18)
[2021-08-08] MEDS: lisINopril 5 MG (PRINIVIL) TABLET PO SCH (08:18)
--- NOTE | 2021-08-08 08:42 | Cardiology Progress Note ---
Subjective Date Seen by Provider: Aug 08, 2021 Time Seen by Provider: 08:40 Subjective/Events-last exam Patient was seen at bedside, still complaining of pain in his foot. Review of Systems General: No Chills, No Night Sweats, No Fatigue, No Malaise, No Appetite, No Other HEENT: No Head Aches, No Visual Changes, No Eye Pain, No Ear Pain, No Dysphasia, No Sinus Congestion, No Post Nasal Drip, No Sore Throat, No Other Pulmonary: No Dyspnea, No Cough, No Pleuritic Chest Pain, No Other Cardiovascular: No: Chest Pain, Palpitations, Orthopnea, Paroxysmal Noc. Dyspnea, Edema, Lt Headedness, Other Focused Exam Lactate Level 08/05/21 22:52: Lactic Acid Level 3.85*H 08/06/21 01:05: Lactic Acid Level 2.71*H 08/06/21 03:15: Lactic Acid Level 2.00 Objective-Cardiology Exam Last Set of Vital Signs Vital Signs 08/06/21 08/06/21 08/08/21 08/08/21 08:00 18:00 06:00 08:24 Temp 36.1 Pulse 101 Resp 19 B/P (MAP) 148/64 Pulse Ox 98 O2 Delivery Room Air O2 Flow Rate 30.00 FiO2 30 I&O Intake and Output 08/08/21 00:00 Intake Total 1160 ml Output Total 845 ml Balance 315 ml Intake Oral 800 ml IV Total 360 ml Output Urine Total 845 ml General: Alert, Oriented X3, Cooperative HEENT: Atraumatic, PERRLA Neck: Supple, No JVD, No Thyromegaly Lungs: Clear to Auscultation, Normal Air Movement Heart: Normal S1, Normal S2, Other (Atrial fibrillation) Abdomen: Normal Bowel Sounds, Soft, No Tenderness, No Hepatosplenomegaly, No Masses Extremities: No Clubbing, No Cyanosis, Other (Gangrene of the right foot) Skin: No Rashes, Other (Left first toe gangrene) Neuro: Normal Speech, Strength at 5/5 X4 Ext, Normal Tone, Sensation Intact Psych/Mental Status: Mental Status NL, Mood NL Results Lab Laboratory Tests 08/08/21 05:10 08/08/21 06:30 A/P-Cardiology Admission Diagnosis Generalized weakness Anemia Acute renal insufficiency Type II myocardial infarction Assessment/Plan Generalized weakness and loss of energy, anemia, reporting black stool, stool for occult blood is negative, managed by Dr. Edge. Acute on chronic kidney disease, responding to IV fluid and improving. Continue to monitor Paroxysmal atrial fibrillation, back in atrial fibrillation with tachycardia, tolerating oral Cardizem. Continue to monitor Elevated troponin, probably type II myocardial infarction due to atrial fibr illation with rapid ventricular response and severe anemia. Underlying coronary artery disease cannot be excluded and it will be monitored closely. Patient cannot tolerate anticoagulation at this point Coronary artery disease, history of stenting in the remote past, reporting having a stress test done in [place] recently, last stress test was done in [place] was in [address] Gallo Extensive peripheral arterial disease, multiple surgeries and multiple intervention, has gangrenous left foot and dry gangrene of his toe, he has seen Dr. Tim in [place] recently and patient recall that he was told it will order to amputate his toe. He has absent pulses in his foot. Need referral back to the vascular surgeon, patient has seen Dr. Tim in [facility]. Had extensive vascular disease multiple surgeries and intervention. I discussed the management plan with Dr. Mcdonald I recommended transferring him back to the vascular surgeon for evaluation Hypertension, monitor blood pressure Hyperlipidemia, continue on statin JUAN RAMON RUSHING MD Aug 08, 2021 08:42
--- NOTE | 2021-08-08 10:34 | Tele-ICU Progress Note ---
Subjective Date Seen by a Provider: Aug 08, 2021 Time Seen by a Provider: 10:34 Sepsis Event Evaluation Height, Weight, BMI Height: 6'0.00" Weight: 214lbs. 0.0oz. 97.220681id; 30.25 BMI Method:Stated Focused Exam Lactate Level 08/05/21 22:52: Lactic Acid Level 3.85*H 08/06/21 01:05: Lactic Acid Level 2.71*H 08/06/21 03:15: Lactic Acid Level 2.00 Exam Exam Patient acknowledged, consented, and participated in this virtual visit which was conducted using real time audio/video Vital Signs Date Time Temp Pulse Resp B/P (MAP) Pulse Ox O2 Delivery O2 Flow Rate FiO2 08/08/21 10:09 100 Room Air 08/08/21 09:00 94 17 147/81 96 Room Air 08/08/21 08:24 36.1 08/08/21 08:00 96 Room Air 08/08/21 08:00 86 15 141/72 97 Room Air 08/08/21 07:00 93 08/08/21 07:00 94 11 128/79 100 Room Air 08/08/21 06:00 101 19 148/64 98 Room Air 08/08/21 05:00 93 21 111/70 99 Room Air 08/08/21 04:00 93 Room Air 08/08/21 04:00 84 15 100/50 97 Room Air 08/08/21 03:00 96 25 146/84 99 Room Air 08/08/21 02:38 100 Room Air 08/08/21 02:00 74 18 118/56 99 Room Air 08/08/21 01:00 89 08/08/21 01:00 89 17 146/67 100 Room Air 08/08/21 00:00 75 18 135/100 98 Room Air 08/08/21 00:00 93 Room Air 08/07/21 23:00 70 18 137/100 100 Room Air 08/07/21 22:00 122 20 146/51 95 Room Air 08/07/21 21:00 85 14 127/72 98 Room Air 08/07/21 20:41 96 Room Air 08/07/21 20:00 93 Room Air 08/07/21 20:00 89 16 136/68 100 Room Air 08/07/21 19:51 36.5 08/07/21 19:00 86 08/07/21 19:00 86 16 130/71 93 Room Air 08/07/21 18:00 77 15 150/74 100 Room Air 08/07/21 17:00 88 14 135/118 99 Room Air 08/07/21 16:00 93 Room Air 08/07/21 16:00 36.3 08/07/21 16:00 76 11 126/60 98 Room Air 08/07/21 15:05 96 Room Air 08/07/21 15:00 81 24 100/58 100 Room Air 08/07/21 14:00 76 10 99/58 100 Room Air 08/07/21 13:00 98 26 119/62 100 Room Air 08/07/21 12:49 94 08/07/21 12:00 93 Room Air 08/07/21 12:00 96 22 100 Room Air 08/07/21 11:00 93 14 120/88 98 Room Air I & O 08/08/21 07:00 Intake Total 1210 ml Output Total 1345 ml Balance -135 ml Height & Weight Height: 6'0.00" Weight: 214lbs. 0.0oz. 97.396355bz; 30.25 BMI Method:Stated General Appearance: No Apparent Distress, Chronically ill HEENT: PERRL/EOMI, Pharynx Normal; No Scleral Icterus (L), No Scleral Icterus (R) Neck: Non Tender, Supple Respiratory: Chest Non Tender, Lungs Clear, No Accessory Muscle Use, No Respiratory Distress; No Crackles, No Wheezing Cardiovascular: No Gallop, No Murmur, Irregularly Irregular Capillary Refill: Less Than 3 Seconds Peripheral Pulses: 1+ Dorsalis Pedis (R), 1+ Left Dors-Pedis (L) (felt ambrose ething but very faint. ); 2+ Radial Pulses (R), 2+ Radial Pulses (L) Gastrointestinal: non tender, soft, no organomegaly Extremity: Pedal Edema, Other (erythema, edema, no change with toe) Neurologic/Psychiatric: Alert, Oriented x3, No Motor/Sensory Deficits, Depressed Affect Skin: Normal Color, Cool, Erythema Lymphatic: No Adenopathy (cervical, axillary) Results Lab Laboratory Tests 08/07/21 05:20 08/08/21 05:10 08/08/21 06:30 Assessment/Plan Assessment/Plan Available chart/ vitals / labs / Images reviewed Video assessment done using teleICU camera, rest of exam as per RN Discussed with RN , EXAM PER RN Events overnight : , on bipap Afebrile FiO2 >RA I/O = pos 300 Drips: Pressors: , hemodynamically stable Consultants: stephen cooper Hospital course: 08/05- to ICU fron ER with a fib RVR . SOB , anemia, scott gangrene , s/p transfuse 1 U pRBC A/P PAF . RVR on admission - rate control off Cardizem gtt, on amio po PICKER/PULLER , po cardizem initiated - AC with lovenox ( PICKER/PULLER on xarelto TORI/ARF -Likely in setting of hypovolemia and intravascular volume depletion with anemia - also on JEWELS -I -improved with hydration HyperKalemia - Tx in ER with CA, kayaxalate and insulin IV - - normlized Elev trop - follow, as per cards Anemia, reporting bloody stools - s/p transfuse 1 U pRBC - stable - monitor for bleed - on xrelto and plavix PICKER/PULLER - as per Sx - xarelto and plavix resumed PAD - on Plavix- resumed - additional stysies - as per cardiology COPD - not in exacerbation Dyspnea on pesentation - was not hypoxic, probably due to combintion of Afib-RVR and anemia - i mproved ID - wound on the left second toe- dry gangrene (the left great toe has previously been amputated) - cx negativ - on zosyn - vaccinaed for COVID DM II - ISS AJAY - CPAP - compliant - on 06/25 overnight Lines : (Central Line Necessity Reviewed) Duran: 08/05 OG: Nutrition: Analgesia: Anxiety/ delirium VTE Prophylaxis: xarelto Stress Ulcer Prophylaxis: PPI Plans in collaboration with bedside consultants and IM MDs. Discussed with RN to reach out if any questions or concerns A total of 35 minutes of critical care time was devoted to this patient today, required to treat and/or prevent further deterioration of critical care condition ( as above ) . ROCHELLE BERMUDEZ MD Aug 08, 2021 10:34
[2021-08-08] MEDS: dilTIAZem DRIP PRE-MIX 125 ML IV SCH (16:23)
[2021-08-08] MEDS: RIVAROXABAN 20 MG TABLET (XARELTO) PO SCH (16:41)
[2021-08-08] MEDS ORDERED: TROUGH ORDER-PHARMACY XX NR (17:30)
--- NOTE | 2021-08-08 19:37 | Progress Note - Hospitalist ---
Subjective HPI/CC On Admission Date Seen by Provider: Aug 08, 2021 Time Seen by Provider: 08:45 Bill Chong is a 70 year old male with PMH HTN, insulin dependent diabetes mellitus, HLD, GERD, AFib, hypothyroidism, CAD, PAD, who presented feeling unwell. He has felt sick for a couple weeks. He reports nausea and vomiting. He feels short of breath. He denies fevers and chills. He reports chest heaviness. He denies palpitations. He denies cough. He denies diarrhea. He has a left second toe that is gangrenous. He follows with a physician at [facility] in and the plan is to let the toe auto-amputate. He has a history of femoral bypass surgery in his bilateral legs. He takes chronic Keflex. Subjective/Events-last exam He is still having pain in his left leg. He is not feeling well. We discussed transfer for possible amputation and he stated that he did not want to have an amputation but if that is what was needed he would do it. We set up transfer to [facility] in [facility]. He later decided that he wanted to pursue hospice care and forego surgery. Focused Exam Lactate Level 08/05/21 22:52: Lactic Acid Level 3.85*H 08/06/21 01:05: Lactic Acid Level 2.71*H 08/06/21 03:15: Lactic Acid Level 2.00 Objective Exam Vital Signs Vital Signs Date Time Temp Pulse Resp B/P (MAP) Pulse Ox O2 Delivery O2 Flow Rate FiO2 08/08/21 17:00 84 13 152/70 08/08/21 16:45 100 08/08/21 15:50 36.6 08/08/21 15:17 Room Air 08/06/21 18:00 30.00 08/06/21 08:00 30 Capillary Refill : Less Than 3 Seconds General Appearance: Chronically ill, Mild Distress (uncomfortable), Obese Respiratory: Lungs Clear, Normal Breath Sounds, No Respiratory Distress Cardiovascular: No Murmur, Irregularly Irregular Gastrointestinal: Normal Bowel Sounds, Non Tender, Soft Extremity: Inflammation, Pedal Edema, Swelling Neurologic/Psychiatric: Alert, Oriented x3, Depressed Affect Skin: Warm/Dry, Erythema, Other (gangrenous second toe left foot with surrounding erythema) Results/Procedures Lab Laboratory Tests 08/08/21 05:10 08/08/21 06:30 Patient resulted labs reviewed. Imaging: Reviewed Imaging Report Assessment/Plan Assessment and Plan Assess & Plan/Chief Complaint PAD Gangrenous toe Cellulitis AFib with RVR NSTEMI Anemia T2DM Chronic kidney disease stage III Obesity Patient and family have decided to pursue hospice Palliative care consulted Continue Zosyn Continue pain regimen Hyperkalemia, resolved Lactic acidosis, resolved Septic shock, resolved Diagnosis/Problems Diagnosis/Problems (1) Cellulitis of left foot Status: Acute (2) Atrial fibrillation with RVR Status: Acute (3) NSTEMI (non-ST elevation myocardial infarction) Status: Acute (4) Septic shock Status: Resolved Resolution Date/Time: 08/07/21 @ 11:56 (5) Lactic acidosis Status: Resolved Resolution Date/Time: 08/07/21 @ 11:56 (6) Acute kidney injury superimposed on chronic kidney disease Status: Resolved Resolution Date/Time: 08/07/21 @ 11:56 (7) T2DM (type 2 diabetes mellitus) Status: Chronic Qualifiers: 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: with dedicated intermodal truck driver use Diabetes mellitus complication status: with circulatory complication Diabetes mellitus complication detail: with peripheral angiopathy with gangrene Qualified Codes: E11.52 - Type 2 diabetes mellitus with diabetic peripheral angiopathy with gangrene; Z79.4 - 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
[2021-08-08] MEDS: FAMOTIDINE 20 MG (PEPCID) TABLET PO SCH (20:51)
[2021-08-08] MEDS: ROSUVASTATIN 20 MG (CRESTOR) TABLET PO SCH (20:51)
[2021-08-08] MEDS: traZODone 50 MG (DESYREL) TAB PO SCH (21:05)
[2021-08-08 21:07] VITALS: BP 152/70
[2021-08-09] MEDS: PIPERACILLIN/TAZOBACTAM (BULK) 4.5 GM in NS (IVPB) 100 ML IV SCH ×2 (00:57→09:02)
[2021-08-09] MEDS: RT-ALBUTEROL SULF 2.5 MG/3 ML PRE-MIX VIAL INH SCH ×4 (02:40→21:19)
[2021-08-09] MEDS: inSUlin ASPART (NovoLOG) 1 UNIT/0.01 ML (CHARGE PER UNIT) SC SCH ×4 (05:16→20:21)
[2021-08-09 06:11] LABS: POTASSIUM 3.8 MMOL/L (3.6-5.0)
[2021-08-09 06:12] LABS: CALCIUM 8.2 MG/DL (8.5-10.1)
[2021-08-09 06:17] LABS: CREATININE SERUM 1.07 MG/DL (0.60-1.30)
[2021-08-09 06:19] LABS: MAGNESIUM 1.9 MG/DL (1.6-2.4)
[2021-08-09] MEDS: KCL 20 MEQ TAB (K-DUR) PO SCH (06:23)
[2021-08-09] MEDS: POTASSIUM CL 10MEQ/50ML IVPB 50 ML IV SCH (06:23)
[2021-08-09] MEDS: MAGNESIUM 1 GM/100 ML IVPB 100 ML IV SCH (06:23)
[2021-08-09] MEDS: CATHETER FLUSH 10 ML SYR IV SCH ×3 (06:48→20:27)
[2021-08-09] MEDS: CLOPIDOGREL 75 MG (PLAVIX) TABLET PO SCH (09:02)
[2021-08-09] MEDS: dilTIAZem120 MG (CARDIZEM CD) CAP PO SCH (09:02)
[2021-08-09] MEDS: lisINopril 5 MG (PRINIVIL) TABLET PO SCH (09:02)
--- NOTE | 2021-08-09 10:36 | Cardiology Progress Note ---
Subjective Date Seen by Provider: Aug 09, 2021 Time Seen by Provider: 10:34 Subjective/Events-last exam Patient is laying down in bed, still complaining of pain in his leg Patient has declined to have amputation and requested to proceed with comfort care Review of Systems General: No Chills, No Night Sweats; Fatigue, Malaise; No Appetite, No Other HEENT: No Head Aches, No Visual Changes, No Eye Pain, No Ear Pain, No Dysphasia, No Sinus Congestion, No Post Nasal Drip, No Sore Throat, No Other Pulmonary: No Dyspnea, No Cough, No Pleuritic Chest Pain, No Other Cardiovascular: Edema; No: Chest Pain, Palpitations, Orthopnea, Paroxysmal Noc. Dyspnea, Lt Headedness, Other Objective-Cardiology Exam Last Set of Vital Signs Vital Signs 08/06/21 08/06/21 08/09/21 08/09/21 08:00 18:00 07:45 08:00 Temp 36.8 Pulse 110 Resp 18 B/P (MAP) 132/95 Pulse Ox 65 O2 Delivery Room Air O2 Flow Rate 30.00 FiO2 30 I&O Intake and Output 08/09/21 00:00 Intake Total 925 ml Output Total 1675 ml Balance -750 ml Intake Oral 805 ml IV Total 120 ml Output Urine Total 1675 ml # Bowel Movements 1 General: Alert, Oriented X3, Cooperative HEENT: Atraumatic, PERRLA Neck: Supple, No JVD, No Thyromegaly Lungs: Clear to Auscultation, Normal Air Movement Heart: Normal S1, Normal S2, Other (Atrial fibrillation) Abdomen: Normal Bowel Sounds, Soft, No Tenderness, No Hepatosplenomegaly, No Masses Extremities: No Clubbing, No Cyanosis, Other (Gangrene of the right foot) Skin: No Rashes, Other (Left first toe gangrene) Neuro: Normal Speech, Strength at 5/5 X4 Ext, Normal Tone, Sensation Intact Psych/Mental Status: Mental Status NL, Mood NL Results Lab Laboratory Tests 08/09/21 05:42 A/P-Cardiology Admission Diagnosis Generalized weakness Anemia Acute renal insufficiency Type II myocardial infarction Assessment/Plan Generalized weakness and loss of energy, anemia, reporting black stool, stool for occult blood is negative, managed by Dr. Edge. Acute on chronic kidney disease, responding to IV fluid and improving. Continue to monitor Paroxysmal atrial fibrillation, back in atrial fibrillation with tachycardia, tolerating oral Cardizem. Continue to monitor Elevated troponin, probably type II myocardial infarction due to atrial fib rillation with rapid ventricular response and severe anemia. Underlying coronary artery disease cannot be excluded and it will be monitored closely. Patient cannot tolerate anticoagulation at this point Coronary artery disease, history of stenting in the remote past, reporting having a stress test done in [place] recently, last stress test was done in [place] was in [address] Gallo Extensive peripheral arterial disease, multiple surgeries and multiple intervention, has gangrenous left foot and dry gangrene of his toe, he has seen Dr. Tim in [place] recently and patient recall that he was told it will order to amputate his toe. He has absent pulses in his foot. Patient was offered transfer to [facility] for evaluation, reported that Dr. Tim has been clear with him that the neck step is going to be amputation and he does not want to have amputation. Initially he agreed on the amputation then he changed his mind and requested comfort care. Currently laying down in bed. No active complaint. Hypertension, monitor blood pressure Hyperlipidemia, continue on statin Patient is requesting comfort care, conservative management is recommended. I will sign off at this point. Thank you for allowing me to participate in the management of Mr. Chong, please feel free to reconsult if needed JUAN RAMON RUSHING MD Aug 09, 2021 10:36
--- NOTE | 2021-08-09 11:33 | Progress Note - Hospitalist ---
Subjective HPI/CC On Admission Date Seen by Provider: Aug 09, 2021 Time Seen by Provider: 10:00 Bill Chong is a 70 year old male with PMH HTN, insulin dependent diabetes mellitus, HLD, GERD, AFib, hypothyroidism, CAD, PAD, who presented feeling unwell. He has felt sick for a couple weeks. He reports nausea and vomiting. He feels short of breath. He denies fevers and chills. He reports chest heaviness. He denies palpitations. He denies cough. He denies diarrhea. He has a left second toe that is gangrenous. He follows with a physician at [facility] in and the plan is to let the toe auto-amputate. He has a history of femoral bypass surgery in his bilateral legs. He takes chronic Keflex. Subjective/Events-last exam He is feeling better today. His pain is better. He has no other complaints or concerns. Objective Exam Vital Signs Vital Signs Date Time Temp Pulse Resp B/P (MAP) Pulse Ox O2 Delivery O2 Flow Rate FiO2 08/09/21 08:00 65 Room Air 08/09/21 07:45 36.8 110 18 132/95 08/06/21 18:00 30.00 08/06/21 08:00 30 Capillary Refill : Less Than 3 Seconds General Appearance: No Apparent Distress, Chronically ill, Obese Respiratory: Lungs Clear, Normal Breath Sounds, No Respiratory Distress Cardiovascular: No Murmur, Irregularly Irregular Gastrointestinal: Normal Bowel Sounds, Non Tender, Soft Extremity: Non Tender, Pedal Edema Neurologic/Psychiatric: Alert, Oriented x3, Depressed Affect Skin: Warm/Dry, Erythema, Other (gangrenous toe) Results/Procedures Lab Laboratory Tests 08/09/21 05:42 Patient resulted labs reviewed. Imaging: Reviewed Imaging Report Assessment/Plan Assessment and Plan Assess & Plan/Chief Complaint PAD Gangrenous toe Cellulitis AFib with RVR NSTEMI Anemia T2DM Chronic kidney disease stage III Obesity Patient and family have decided to pursue hospice Palliative care consulted Stop Zosyn Transition to Augmentin Continue pain regimen Working toward discharge to [facility] [place] Hyperkalemia, resolved Lactic acidosis, resolved Septic shock, resolved Diagnosis/Problems Diagnosis/Problems (1) Cellulitis of left foot Status: Acute (2) Atrial fibrillation with RVR Status: Acute (3) NSTEMI (non-ST elevation myocardial infarction) Status: Acute (4) Septic shock Status: Resolved Resolution Date/Time: 08/07/21 @ 11:56 (5) Lactic acidosis Status: Resolved Resolution Date/Time: 08/07/21 @ 11:56 (6) Acute kidney injury superimposed on chronic kidney disease Status: Resolved Resolution Date/Time: 08/07/21 @ 11:56 (7) T2DM (type 2 diabetes mellitus) Status: Chronic Qualifiers: Diabetes mellitus termite renewal inspector insulin use: with custodial use Diabetes mellitus complication status: with circulatory complication Diabetes mellitus complication detail: with peripheral angiopathy with gangrene Qualified Codes: E11.52 - Type 2 diabetes mellitus with diabetic peripheral angiopathy with gangrene; Z79.4 - snf (current) use of insulin (8) PAD (peripheral artery disease) Status: Acute (9) Gangrenous toe Status: Acute (10) Hyperkalemia Status: Resolved Resolution Date/Time: 08/07/21 @ 11:56 (11) CKD (chronic kidney disease) stage 3, GFR 30-59 ml/min Status: Chronic Qualifiers: Chronic kidney disease stage 3 subtype: stage 3a (GFR 45-59) Qualified Codes: N18.31 - Chronic kidney disease, stage 3a REGINO COPE MD Aug 09, 2021 11:33
[2021-08-09] MEDS: RIVAROXABAN 20 MG TABLET (XARELTO) PO SCH (16:16)
[2021-08-09] MEDS: AUGMENTIN 875 MG TAB (AMOXICILLIN/CLAVULANATE) PO SCH (18:38)
[2021-08-09] MEDS: ROSUVASTATIN 20 MG (CRESTOR) TABLET PO SCH (20:26)
[2021-08-09] MEDS: FAMOTIDINE 20 MG (PEPCID) TABLET PO SCH (20:26)
[2021-08-09] MEDS: traZODone 50 MG (DESYREL) TAB PO SCH (20:27)
[2021-08-10] MEDS: RT-ALBUTEROL SULF 2.5 MG/3 ML PRE-MIX VIAL INH SCH ×4 (02:48→21:00)
[2021-08-10] MEDS: CATHETER FLUSH 10 ML SYR IV SCH ×3 (05:29→21:36)
[2021-08-10 05:34] LABS: POTASSIUM 3.9 MMOL/L (3.6-5.0)
[2021-08-10 05:35] LABS: CALCIUM 8.6 MG/DL (8.5-10.1)
[2021-08-10 05:39] LABS: CREATININE SERUM 1.07 MG/DL (0.60-1.30)
[2021-08-10 05:42] LABS: MAGNESIUM 1.9 MG/DL (1.6-2.4)
[2021-08-10] MEDS: inSUlin ASPART (NovoLOG) 1 UNIT/0.01 ML (CHARGE PER UNIT) SC SCH ×4 (05:43→21:13)
[2021-08-10] MEDS: MAGNESIUM 1 GM/100 ML IVPB 100 ML IV SCH (05:47)
[2021-08-10] MEDS: POTASSIUM CL 10MEQ/50ML IVPB 50 ML IV SCH (05:47)
[2021-08-10] MEDS: KCL 20 MEQ TAB (K-DUR) PO SCH (05:48)
[2021-08-10] MEDS: AUGMENTIN 875 MG TAB (AMOXICILLIN/CLAVULANATE) PO SCH ×2 (08:54→17:25)
[2021-08-10] MEDS: dilTIAZem120 MG (CARDIZEM CD) CAP PO SCH (08:54)
[2021-08-10] MEDS: lisINopril 5 MG (PRINIVIL) TABLET PO SCH (08:54)
[2021-08-10] MEDS: CLOPIDOGREL 75 MG (PLAVIX) TABLET PO SCH (08:54)
--- NOTE | 2021-08-10 10:29 | Progress Note - Hospitalist ---
Subjective HPI/CC On Admission Date Seen by Provider: Aug 10, 2021 Time Seen by Provider: 09:45 Bill Chong is a 70 year old male with PMH HTN, insulin dependent diabetes mellitus, HLD, GERD, AFib, hypothyroidism, CAD, PAD, who presented feeling unwell. He has felt sick for a couple weeks. He reports nausea and vomiting. He feels short of breath. He denies fevers and chills. He reports chest heaviness. He denies palpitations. He denies cough. He denies diarrhea. He has a left second toe that is gangrenous. He follows with a physician at [facility] in and the plan is to let the toe auto-amputate. He has a history of femoral bypass surgery in his bilateral legs. He takes chronic Keflex. Subjective/Events-last exam He is feeling ok now. He received pain medicine this morning. He is still having pain in his left leg. He is feeling itchy all over. Objective Exam Vital Signs Vital Signs Date Time Temp Pulse Resp B/P (MAP) Pulse Ox O2 Delivery O2 Flow Rate FiO2 08/10/21 07:43 100 Room Air 08/10/21 07:39 36.1 96 20 139/60 08/06/21 18:00 30.00 08/06/21 08:00 30 Capillary Refill : Less Than 3 Seconds General Appearance: No Apparent Distress, Chronically ill, Obese Respiratory: Lungs Clear, Normal Breath Sounds, No Respiratory Distress Cardiovascular: Regular Rate, Rhythm, No Edema, No Murmur Gastrointestinal: Normal Bowel Sounds, Non Tender, Soft Extremity: Inflammation, Pedal Edema, Swelling, Other (left second toe gangrenous) Neurologic/Psychiatric: Alert, Depressed Affect Skin: Warm/Dry, Erythema Results/Procedures Lab Laboratory Tests 08/10/21 04:54 Patient resulted labs reviewed. Assessment/Plan Assessment and Plan Assess & Plan/Chief Complaint PAD Gangrenous toe Cellulitis AFib with RVR NSTEMI Anemia T2DM Chronic kidney disease stage III Obesity Patient and family have decided to pursue hospice Palliative care consulted Continue Augmentin Continue pain regimen Working toward discharge to [facility] in [place] Hyperkalemia, resolved Lactic acidosis, resolved Septic shock, resolved Diagnosis/Problems Diagnosis/Problems (1) Cellulitis of left foot Status: Acute (2) Atrial fibrillation with RVR Status: Acute (3) NSTEMI (non-ST elevation myocardial infarction) Status: Acute (4) Septic shock Status: Resolved Resolution Date/Time: 08/07/21 @ 11:56 (5) Lactic acidosis Status: Resolved Resolution Date/Time: 08/07/21 @ 11:56 (6) Acute kidney injury superimposed on chronic kidney disease Status: Resolved Resolution Date/Time: 08/07/21 @ 11:56 (7) T2DM (type 2 diabetes mellitus) Status: Chronic Qualifiers: Diabetes mellitus halfway insulin use: with intermediate school teacher use Diabetes mellitus complication status: with circulatory complication Diabetes mellitus complication detail: with peripheral angiopathy with gangrene Qualified Codes: E11.52 - Type 2 diabetes mellitus with diabetic peripheral angiopathy with gangrene; Z79.4 - long term care social worker (current) use of insulin (8) PAD (peripheral artery disease) Status: Acute (9) Gangrenous toe Status: Acute (10) Hyperkalemia Status: Resolved Resolution Date/Time: 08/07/21 @ 11:56 (11) CKD (chronic kidney disease) stage 3, GFR 30-59 ml/min Status: Chronic Qualifiers: Chronic kidney disease stage 3 subtype: stage 3a (GFR 45-59) Qualified Codes: N18.31 - Chronic kidney disease, stage 3a REGINO COPE MD Aug 10, 2021 10:29
[2021-08-10] MEDS ORDERED: diphenhydrAMINE 25 MG TAB (BENADRYL) PO NR (10:30)
[2021-08-10] MEDS: RIVAROXABAN 20 MG TABLET (XARELTO) PO SCH (17:25)
[2021-08-10] MEDS: ROSUVASTATIN 20 MG (CRESTOR) TABLET PO SCH (21:35)
[2021-08-10] MEDS: traZODone 50 MG (DESYREL) TAB PO SCH (21:36)
[2021-08-10] MEDS: FAMOTIDINE 20 MG (PEPCID) TABLET PO SCH (21:36)
[2021-08-11] MEDS: RT-ALBUTEROL SULF 2.5 MG/3 ML PRE-MIX VIAL INH SCH ×4 (02:18→21:06)
[2021-08-11 06:23] LABS: HEMOGLOBIN 9.7 g/dL (13.3-17.7)
[2021-08-11 06:33] LABS: POTASSIUM 4.3 MMOL/L (3.6-5.0)
[2021-08-11 06:34] LABS: CALCIUM 9.1 MG/DL (8.5-10.1)
[2021-08-11] MEDS: CATHETER FLUSH 10 ML SYR IV SCH ×3 (06:37→20:48)
[2021-08-11 06:39] LABS: CREATININE SERUM 1.02 MG/DL (0.60-1.30)
[2021-08-11] MEDS: inSUlin ASPART (NovoLOG) 1 UNIT/0.01 ML (CHARGE PER UNIT) SC SCH ×4 (06:39→20:04)
[2021-08-11 06:41] LABS: MAGNESIUM 1.9 MG/DL (1.6-2.4)
[2021-08-11] MEDS: POTASSIUM CL 10MEQ/50ML IVPB 50 ML IV SCH (06:52)
[2021-08-11] MEDS: KCL 20 MEQ TAB (K-DUR) PO SCH (06:53)
[2021-08-11] MEDS: MAGNESIUM 1 GM/100 ML IVPB 100 ML IV SCH (06:53)
[2021-08-11] MEDS: lisINopril 5 MG (PRINIVIL) TABLET PO SCH (08:19)
[2021-08-11] MEDS: dilTIAZem120 MG (CARDIZEM CD) CAP PO SCH (08:19)
[2021-08-11] MEDS: CLOPIDOGREL 75 MG (PLAVIX) TABLET PO SCH (08:19)
[2021-08-11] MEDS: AUGMENTIN 875 MG TAB (AMOXICILLIN/CLAVULANATE) PO SCH ×2 (08:19→18:08)
[2021-08-11] MEDS: diphenhydrAMINE 25 MG TAB (BENADRYL) PO PRN ×2 (10:36→18:08)
--- NOTE | 2021-08-11 12:10 | Progress Note - Hospitalist ---
Subjective HPI/CC On Admission Date Seen by Provider: Aug 11, 2021 Time Seen by Provider: 10:25 Bill Chong is a 70 year old male with PMH HTN, insulin dependent diabetes mellitus, HLD, GERD, AFib, hypothyroidism, CAD, PAD, who presented feeling unwell. He has felt sick for a couple weeks. He reports nausea and vomiting. He feels short of breath. He denies fevers and chills. He reports chest heaviness. He denies palpitations. He denies cough. He denies diarrhea. He has a left second toe that is gangrenous. He follows with a physician at [facility] in and the plan is to let the toe auto-amputate. He has a history of femoral bypass surgery in his bilateral legs. He takes chronic Keflex. Subjective/Events-last exam He is feeling itchy. He denies pain. He has no other complaints or concerns. Objective Exam Vital Signs Vital Signs Date Time Temp Pulse Resp B/P (MAP) Pulse Ox O2 Delivery O2 Flow Rate FiO2 08/11/21 11:37 36.4 86 20 104/55 97 Room Air 08/06/21 18:00 30.00 08/06/21 08:00 30 Capillary Refill : Less Than 3 Seconds General Appearance: No Apparent Distress, Chronically ill Respiratory: Lungs Clear, Normal Breath Sounds, No Respiratory Distress Cardiovascular: No Edema, No Murmur, Irregularly Irregular Gastrointestinal: Normal Bowel Sounds, Non Tender, Soft Extremity: Inflammation, Pedal Edema, Swelling Neurologic/Psychiatric: Alert, Depressed Affect Skin: Warm/Dry, Erythema, Other (gangrenous left second toe) Results/Procedures Lab Laboratory Tests 08/11/21 06:15 Patient resulted labs reviewed. Assessment/Plan Assessment and Plan Assess & Plan/Chief Complaint PAD Gangrenous toe Cellulitis AFib with RVR NSTEMI Anemia T2DM Chronic kidney disease stage III Obesity Patient and family have decided to pursue hospice Palliative care consulted Continue Augmentin Continue pain regimen Benadryl as needed Working toward discharge to [facility] in [place] Hyperkalemia, resolved Lactic acidosis, resolved Septic shock, resolved Diagnosis/Problems Diagnosis/Problems (1) Cellulitis of left foot Status: Acute (2) Atrial fibrillation with RVR Status: Acute (3) NSTEMI (non-ST elevation myocardial infarction) Status: Acute (4) Septic shock Status: Resolved Resolution Date/Time: 08/07/21 @ 11:56 (5) Lactic acidosis Status: Resolved Resolution Date/Time: 08/07/21 @ 11:56 (6) Acute kidney injury superimposed on chronic kidney disease Status: Resolved Resolution Date/Time: 08/07/21 @ 11:56 (7) T2DM (type 2 diabetes mellitus) Status: Chronic Qualifiers: Diabetes mellitus technician terminal and repeater insulin use: with fci use Diabetes mellitus complication status: with circulatory complication Diabetes mellitus complication detail: with peripheral angiopathy with gangrene Qualified Codes: E11.52 - Type 2 diabetes mellitus with diabetic peripheral angiopathy with gangrene; Z79.4 - technician terminal and repeater (current) use of insulin (8) PAD (peripheral artery disease) Status: Acute (9) Gangrenous toe Status: Acute (10) Hyperkalemia Status: Resolved Resolution Date/Time: 08/07/21 @ 11:56 (11) CKD (chronic kidney disease) stage 3, GFR 30-59 ml/min Status: Chronic Qualifiers: Chronic kidney disease stage 3 subtype: stage 3a (GFR 45-59) Qualified Cod es: N18.31 - Chronic kidney disease, stage 3a REGINO COPE MD Aug 11, 2021 12:10
[2021-08-11] MEDS: RIVAROXABAN 20 MG TABLET (XARELTO) PO SCH (18:08)
[2021-08-11] MEDS: traZODone 50 MG (DESYREL) TAB PO SCH (20:02)
[2021-08-11] MEDS: ROSUVASTATIN 20 MG (CRESTOR) TABLET PO SCH (20:02)
[2021-08-11] MEDS: FAMOTIDINE 20 MG (PEPCID) TABLET PO SCH (20:02)
[2021-08-12] MEDS: RT-ALBUTEROL SULF 2.5 MG/3 ML PRE-MIX VIAL INH SCH ×4 (03:04→22:21)
[2021-08-12] MEDS: CATHETER FLUSH 10 ML SYR IV SCH ×3 (05:23→20:02)
[2021-08-12] MEDS: inSUlin ASPART (NovoLOG) 1 UNIT/0.01 ML (CHARGE PER UNIT) SC SCH ×5 (05:24→20:38)
[2021-08-12 06:10] LABS: POTASSIUM 4.1 MMOL/L (3.6-5.0)
[2021-08-12 06:11] LABS: CALCIUM 8.8 MG/DL (8.5-10.1)
[2021-08-12 06:16] LABS: CREATININE SERUM 1.07 MG/DL (0.60-1.30)
[2021-08-12 06:18] LABS: MAGNESIUM 1.8 MG/DL (1.6-2.4)
[2021-08-12] MEDS: POTASSIUM CL 10MEQ/50ML IVPB 50 ML IV SCH (06:18)
[2021-08-12] MEDS: KCL 20 MEQ TAB (K-DUR) PO SCH (06:18)
[2021-08-12] MEDS: MAGNESIUM 1 GM/100 ML IVPB 100 ML IV SCH (06:18)
[2021-08-12] MEDS: AUGMENTIN 875 MG TAB (AMOXICILLIN/CLAVULANATE) PO SCH (08:31)
[2021-08-12] MEDS: dilTIAZem120 MG (CARDIZEM CD) CAP PO SCH (08:31)
[2021-08-12] MEDS: CLOPIDOGREL 75 MG (PLAVIX) TABLET PO SCH (08:31)
[2021-08-12] MEDS: lisINopril 5 MG (PRINIVIL) TABLET PO SCH (08:31)
[2021-08-12] MEDS: diphenhydrAMINE 25 MG TAB (BENADRYL) PO PRN ×2 (10:25→23:58)
[2021-08-12] MEDS ORDERED: DIPH25TA27 PO (10:32)
[2021-08-12] MEDS ORDERED: DILT-27 PO (10:32)
[2021-08-12] MEDS ORDERED: OXC5T PO (10:32)
--- NOTE | 2021-08-12 10:32 | Discharge Summary ---
Discharge Summary Hospital Course Problems/Dx: (1) Cellulitis of left foot Status: Acute (2) Atrial fibrillation with RVR Status: Acute (3) NSTEMI (non-ST elevation myocardial infarction) Status: Acute (4) Septic shock Status: Resolved (5) Lactic acidosis Status: Resolved (6) Acute kidney injury superimposed on chronic kidney disease Status: Resolved (7) T2DM (type 2 diabetes mellitus) Status: Chronic Qualifiers: Qualified Codes: E11.52 - Type 2 diabetes mellitus with diabetic peripheral angiopathy with gangrene; Z79.4 - senior care (current) use of insulin (8) PAD (peripheral artery disease) Status: Acute (9) Gangrenous toe Status: Acute (10) Hyperkalemia Status: Resolved (11) CKD (chronic kidney disease) stage 3, GFR 30-59 ml/min Status: Chronic Qualifiers: Qualified Codes: N18.31 - Chronic kidney disease, stage 3a Hospital Course Date of Admission: Aug 05, 2021 at 14:42 Admission Diagnosis : Family Physician/Provider: NoLocal Physician Date of Discharge: 08/12/21 Discharge Diagnosis: [ ] Hospital Course: [ ] Labs and Pending Lab Test: Laboratory Tests 08/11/21 11:36: Glucometer 161H 08/11/21 15:17: Glucometer 152H 08/11/21 20:03: Glucometer 158H 08/12/21 05:19: Glucometer 143H 08/12/21 05:35: Sodium Level 136, Potassium Level 4.1, Chloride Level 104, Carbon Dioxide Level 19L, Anion Gap 13, Blood Urea Nitrogen 10, Creatinine 1.07, Estimat Glomerular Filtration Rate 68, BUN/Creatinine Ratio 9, Glucose Level 141H, Calcium Level 8.8, Magnesium Level 1.8 Microbiology 08/05/21 Blood Culture - Final, Complete No growth 08/05/21 MRSA Screen - Final, Complete MRSA not isolated Home Meds Active Banophen (Diphenhydramine HCl) 25 Mg Tablet 25 Mg PO Q6H PRN 30 Days Oxyir Tablet (Oxycodone HCl) 5 Mg Tab 5-10 Mg PO Q4H PRN Diltiazem 24Hr ER (Diltiazem HCl) 120 Mg Cap.er.24h 120 Mg PO DAILY@0900 90 Days Reported Levothyroxine Sodium 150 Mcg Tablet 150 Mcg PO DAILY LAST FILLED 04-15-2021 #90/90 DAY SUPPLY Neurontin (Gabapentin) 300 Mg Capsule 600 Mg PO TID TAKES 2 (300MG) CAPS Lantus (Insulin Glargine,Hum.rec.anlog) 100 Unit/1 Ml Vial 45 Unit SQ HS Tizanidine HCl 4 Mg Tablet 4 Mg PO TID PRN Promethazine Tablet (Promethazine HCl) 25 Mg Tablet 25 Mg PO Q6H PRN Cephalexin 500 Mg Capsule 500 Mg PO DAILY Vitamin D3 (Cholecalciferol (Vitamin D3)) 250 Mcg Tablet 1,000 Units PO DAILY Lisinopril 5 Mg Tablet 5 Mg PO DAILY Famotidine 40 Mg Tablet 40 Mg PO HS Metoprolol Succinate 50 Mg Tab.er.24h 25 Mg PO DAILY Crestor (Rosuvastatin Calcium) 40 Mg Tablet 20 Mg PO HS TAKES 1/2 (40MG) TABLET Xarelto Tablet (Rivaroxaban) 20 Mg Tablet 20 Mg PO 1700 Trazodone HCl 50 Mg Tablet 50 Mg PO HS LAST FILLED 03-19-2021 #90/90 DAY SUPPLY Ferrous Sulfate 324 Mg Tablet.dr 324 Mg PO DAILY Plavix (Clopidogrel Bisulfate) 75 Mg Tablet 75 Mg PO DAILY Lantus (Insulin Glargine,Hum.rec.anlog) 100 Unit/1 Ml Vial 40 Unit SC DAILY Novolog (Insulin Aspart) 100 Unit/1 Ml Susp 15 Units SQ AC Discharge Physical Examination Vital Signs Vital Signs Date Time Temp Pulse Resp B/P (MAP) Pulse Ox O2 Delivery O2 Flow Rate FiO2 08/12/21 08:00 36.3 77 20 124/62 96 Room Air 08/06/21 18:00 30.00 08/06/21 08:00 30 Allergies: Coded Allergies: hydromorphone (Verified Allergy, Intermediate, 08/08/21) Pt "went crazy" on this med morphine (Verified Allergy, Intermediate, SEVERE ITCHING, 08/15/15) peach (Unverified Allergy, Unknown, 08/14/15) Uncoded Allergies: contrex (Allergy, Unknown, 08/14/15) Discharge Summary Date of Admission Aug 05, 2021 at 14:42 Date of Discharge Discharge Date: Aug 12, 2021 Admission Diagnosis Atrial fibrillation with rapid ventricular response Discharge Diagnosis (1) Cellulitis of left foot Status: Acute (2) Atrial fibrillation with RVR Status: Acute (3) NSTEMI (non-ST elevation myocardial infarction) Status: Acute (4) Septic shock Status: Resolved (5) Lactic acidosis Status: Resolved (6) Acute kidney injury superimposed on chronic kidney disease Status: Resolved (7) T2DM (type 2 diabetes mellitus) Status: Chronic Qualifiers: Qualified Codes: E11.52 - Type 2 diabetes mellitus with diabetic peripheral angiopathy with gangrene; Z79.4 - rn long term care (current) use of insulin (8) PAD (peripheral artery disease) Status: Acute (9) Gangrenous toe Status: Acute (10) Hyperkalemia Status: Resolved (11) CKD (chronic kidney disease) stage 3, GFR 30-59 ml/min Status: Chronic Qualifiers: Qualified Codes: N18.31 - Chronic kidney disease, stage 3a JOSE WYMAN DO Aug 12, 2021 10:32
--- NOTE | 2021-08-12 10:51 | Progress Note - Hospitalist ---
HOWARDTORRI Girma 08/12/21 1051: Subjective Subjective/Events-last exam Mr. Chong is a 70 year old male with a PMHx of HTN, insulin dependent diabetes mellitus, HLD, GERD, AFib, hypothyroidism, CAD, and PAD who presented to the ED on 05 August for SOB and general malaise. He reported nausea and vomiting and denied fevers and chills at the time. [facility] He has been seen my Dr. Rodarte throughout his hospital stay for cardiology. He has denied any chest pain. He has chronic leg pain with a gangrenous L toe. He follows with a physician at [facility] in [place], [place] and the plan is to let the toe auto-amputate. He does not want any intervention. He has a h/o femoral bypass surgery in his legs bilaterally. He has AFib which is being monitored by cardiology and controlled with rate control agents. He reports left leg and toe pain this morning with occasional itchiness. He was upset at being woken up during our encounter this morning but had no new complaints. The physical exam this morning was abbreviated d/t patient mood. The plan is to discharge him to a SNF in [place], [place]. Review of Systems General: No Chills; Fatigue Pulmonary: Dyspnea; No Cough Cardiovascular: Palpitations; No: Chest Pain Gastrointestinal: Abdominal Pain; No: Nausea, Vomiting Musculoskeletal: leg pain, foot pain Neurological: No: Weakness, Confusion Focused Exam Capillary Refill: Less Than 3 Seconds Peripheral Pulses: 2+ Radial Pulses (R), 2+ Radial Pulses (L) Objective Exam Vital Signs Vital Signs Date Time Temp Pulse Resp B/P (MAP) Pulse Ox O2 Delivery O2 Flow Rate FiO2 08/12/21 08:00 36.3 77 20 124/62 96 Room Air 08/06/21 18:00 30.00 08/06/21 08:00 30 Capillary Refill : Less Than 3 Seconds General Appearance: No Apparent Distress, WD/WN Respiratory: Chest Non Tender, Lungs Clear, Normal Breath Sounds, No Accessory Muscle Use, No Respiratory Distress Cardiovascular: No Murmur, Normal Peripheral Pulses, Irregularly Irregular Extremity: Inflammation, Other (Left leg pain and gangrenous L toe) Neurologic/Psychiatric: Alert, Oriented x3, No Motor/Sensory Deficits Skin: Warm/Dry, Other (Gangrenous L toe) Results/Procedures Lab Laboratory Tests 08/12/21 05:35 Patient resulted labs reviewed. Assessment/Plan Assessment and Plan Assess & Plan/Chief Complaint Assessment PAD - Patient does not want intervention Gangrenous toe - Plan is to let auto-amputate AFib with RVR - Rate control Cellulitis NSTEMI Anemia T2DM Chronic kidney disease stage III Plan Continue Augmentin Continue pain regimen Benadryl as needed Working toward discharge to [facility] in [place] YOLIS WYMAN DO 08/13/21 0535: Subjective HPI/CC On Admission Date Seen by Provider: Aug 12, 2021 Time Seen by Provider: 10:00 Subjective/Events-last exam Patient doing about the same Works on his phone during interview Thursday discharge to [place] Objective Exam General Appearance: No Apparent Distress, WD/WN, Chronically ill Assessment/Plan Assessment and Plan Assess & Plan/Chief Complaint Allow toe to auto amputate Discharge [facility] Thursday Supervisory-Addendum Brief Verification & Attestation Participated in pt care: history, MDM, physical Personally performed: exam, history, MDM, supervision of care Care discussed with: Medical Student Procedures: n/a Results interpretation: Verified all documentation Verification and Attestation of Medical Student E/M Service A medical student performed and documented this service in my presence. I revie wed and verified all information documented by the medical student and made modifications to such information, when appropriate. I personally performed the physical exam and medical decision making. Yolis Wyman Aug 13, 2021,05:35 TORRI HOWARD Aug 12, 2021 10:51 YOLIS WYMAN DO Aug 13, 2021 05:35
[2021-08-12] MEDS: RIVAROXABAN 20 MG TABLET (XARELTO) PO SCH (16:37)
[2021-08-12] MEDS: FAMOTIDINE 20 MG (PEPCID) TABLET PO SCH (19:59)
[2021-08-12] MEDS: traZODone 50 MG (DESYREL) TAB PO SCH (19:59)
[2021-08-12] MEDS: ROSUVASTATIN 20 MG (CRESTOR) TABLET PO SCH (19:59)
[2021-08-13] MEDS ORDERED: RT-ALBUTEROL SULF 2.5 MG/3 ML PRE-MIX VIAL INH PRN (00:30)
[2021-08-13] MEDS: CATHETER FLUSH 10 ML SYR IV SCH ×3 (06:14→19:31)
[2021-08-13] MEDS: inSUlin ASPART (NovoLOG) 1 UNIT/0.01 ML (CHARGE PER UNIT) SC SCH ×4 (06:14→20:29)
[2021-08-13] MEDS: CLOPIDOGREL 75 MG (PLAVIX) TABLET PO SCH (08:11)
[2021-08-13] MEDS: dilTIAZem120 MG (CARDIZEM CD) CAP PO SCH (08:11)
[2021-08-13] MEDS: lisINopril 5 MG (PRINIVIL) TABLET PO SCH (08:11)
[2021-08-13] MEDS: POTASSIUM CL 10MEQ/50ML IVPB 50 ML IV SCH (09:03)
[2021-08-13] MEDS: MAGNESIUM 1 GM/100 ML IVPB 100 ML IV SCH (09:03)
[2021-08-13] MEDS: KCL 20 MEQ TAB (K-DUR) PO SCH (09:04)
[2021-08-13 09:42] LABS: CALCIUM 9.3 MG/DL (8.5-10.1); CREATININE SERUM 1.04 MG/DL (0.60-1.30); POTASSIUM 4.5 MMOL/L (3.6-5.0)
[2021-08-13 10:04] LABS: MAGNESIUM 1.8 MG/DL (1.6-2.4)
--- NOTE | 2021-08-13 12:19 | Progress Note - Hospitalist ---
TORRI HOWARD 08/13/21 1219: Subjective HPI/CC On Admission Date Seen by Provider: Aug 13, 2021 Time Seen by Provider: 07:42 Subjective/Events-last exam Mr. Chong still reports pain in his left leg and foot with general pain in his other extremities. He did ask for another pain pill during rounds this morning. He reports being upset about not being able to get sleep and having so many people check on him. He has no new complaints or issues overnight and the plan is still to d/c him to a SNF in [place] on Thursday. Patient answered "sometimes" to all questions marked positive in ROS. Upon further questioning into timing he would not clarify. Review of Systems General: No Chills, No Fatigue HEENT: Head Aches; No Visual Changes Pulmonary: Dyspnea, Cough Cardiovascular: Palpitations; No: Chest Pain Gastrointestinal: Nausea, Abdominal Pain; No: Vomiting Musculoskeletal: leg pain, foot pain Focused Exam Capillary Refill: Less Than 3 Seconds Peripheral Pulses: 2+ Radial Pulses (R), 2+ Radial Pulses (L) Objective Exam Vital Signs Vital Signs Date Time Temp Pulse Resp B/P (MAP) Pulse Ox O2 Delivery O2 Flow Rate FiO2 08/13/21 08:00 36.5 74 18 130/58 96 Room Air Capillary Refill : Less Than 3 Seconds General Appearance: No Apparent Distress, WD/WN HEENT: Moist Mucous Membranes Respiratory: Chest Non Tender, Lungs Clear, Normal Breath Sounds, No Accessory Muscle Use, No Respiratory Distress Cardiovascular: Regular Rate, Rhythm, No Murmur, Normal Peripheral Pulses Gastrointestinal: Non Tender, Soft Extremity: Normal Capillary Refill, Normal Inspection, Other (Gangrenous toe on left foot) Neurologic/Psychiatric: Alert, Oriented x3, Other (Angry and uncooperative) Skin: Normal Color, Warm/Dry Lymphatic: No Adenopathy (Head and neck) Results/Procedures Lab Laboratory Tests 08/13/21 09:10 Patient resulted labs reviewed. Assessment/Plan Assessment and Plan Assess & Plan/Chief Complaint Assessment PAD - Patient does not want intervention Gangrenous toe - Plan is to let auto-amputate AFib with RVR - Rate control Cellulitis NSTEMI Anemia T2DM Chronic kidney disease stage III Plan Continue Augmentin Continue pain regimen Benadryl as needed Working toward discharge to [facility] in [place]. Plan is Thursday. YOLIS WYMAN DO 08/14/21 0526: Subjective Subjective/Events-last exam Patient apparently wakes up to acknowledge me Denies any problems Assessment/Plan Assessment and Plan Assess & Plan/Chief Complaint Hospice on Thursday Supervisory-Addendum Brief Verification & Attestation Participated in pt care: history, MDM, physical Personally performed: exam, history, MDM, supervision of care Care discussed with: Medical Student Procedures: n/a Results interpretation: Verified all documentation Verification and Attestation of Medical Student E/M Service A medical student performed and documented this service in my presence. I reviewed and verified all information documented by the medical student and made modifications to such information, when appropriate. I personally performed the physical exam and medical decision making. Yolis Wyman, Aug 14, 2021,05:25 TORRI HOWARD Aug 13, 2021 12:19 YOLIS WYMAN DO Aug 14, 2021 05:26
[2021-08-13] MEDS: RIVAROXABAN 20 MG TABLET (XARELTO) PO SCH (17:59)
[2021-08-13] MEDS: FAMOTIDINE 20 MG (PEPCID) TABLET PO SCH (19:31)
[2021-08-13] MEDS: ROSUVASTATIN 20 MG (CRESTOR) TABLET PO SCH (19:31)
[2021-08-13] MEDS: traZODone 50 MG (DESYREL) TAB PO SCH (19:34)
[2021-08-13] MEDS: diphenhydrAMINE 25 MG TAB (BENADRYL) PO PRN (19:37)
[2021-08-14] MEDS: inSUlin ASPART (NovoLOG) 1 UNIT/0.01 ML (CHARGE PER UNIT) SC SCH ×4 (05:11→20:35)
[2021-08-14] MEDS: POTASSIUM CL 10MEQ/50ML IVPB 50 ML IV SCH (05:54)
[2021-08-14] MEDS: CATHETER FLUSH 10 ML SYR IV SCH ×3 (05:56→22:28)
[2021-08-14 07:03] LABS: POTASSIUM 4.3 MMOL/L (3.6-5.0)
[2021-08-14 07:04] LABS: CALCIUM 8.8 MG/DL (8.5-10.1)
[2021-08-14 07:08] LABS: CREATININE SERUM 0.96 MG/DL (0.60-1.30)
[2021-08-14 07:11] LABS: MAGNESIUM 1.9 MG/DL (1.6-2.4)
[2021-08-14] MEDS: KCL 20 MEQ TAB (K-DUR) PO SCH (07:45)
[2021-08-14] MEDS: MAGNESIUM 1 GM/100 ML IVPB 100 ML IV SCH (07:45)
[2021-08-14] MEDS: CLOPIDOGREL 75 MG (PLAVIX) TABLET PO SCH (10:26)
[2021-08-14] MEDS: dilTIAZem120 MG (CARDIZEM CD) CAP PO SCH (10:26)
[2021-08-14] MEDS: lisINopril 5 MG (PRINIVIL) TABLET PO SCH (10:26)
--- NOTE | 2021-08-14 11:06 | Progress Note - Hospitalist ---
TORRI HOWARD 08/14/21 1106: Subjective HPI/CC On Admission Date Seen by Provider: Aug 14, 2021 Time Seen by Provider: 07:45 Subjective/Events-last exam Mr. Chong reports the same pain today as previous days. He has not had any overnight changes. He asked for another pain pill on rounds this morning. Patient still irritated during encounters. Review of Systems General: Chills, Fatigue Pulmonary: Dyspnea, Cough Cardiovascular: Palpitations; No: Chest Pain Gastrointestinal: Nausea; No: Vomiting Focused Exam Peripheral Pulses: 2+ Radial Pulses (R), 2+ Radial Pulses (L) Objective Exam Vital Signs Vital Signs Date Time Temp Pulse Resp B/P (MAP) Pulse Ox O2 Delivery O2 Flow Rate FiO2 08/14/21 08:00 95 Room Air 08/14/21 07:30 36.6 76 16 119/60 Capillary Refill : Less Than 3 Seconds General Appearance: No Apparent Distress, WD/WN HEENT: Moist Mucous Membranes; No Scleral Icterus (L), No Scleral Icterus (R) Respiratory: Chest Non Tender, Lungs Clear, Normal Breath Sounds, No Accessory Muscle Use, No Respiratory Distress Cardiovascular: Regular Rate, Rhythm, No Murmur, Normal Peripheral Pulses Extremity: Other (Gangrenous left toe) Neurologic/Psychiatric: Alert, Oriented x3, No Motor/Sensory Deficits; No Normal Mood/Affect (Patient irritated) Skin: Normal Color Results/Procedures Lab Laboratory Tests 08/14/21 06:24 Patient resulted labs reviewed. Assessment/Plan Assessment and Plan Assess & Plan/Chief Complaint Assessment PAD - Patient does not want intervention Gangrenous toe - Plan is to let auto-amputate AFib with RVR - Rate control Cellulitis NSTEMI Anemia T2DM Chronic kidney disease stage III Plan Continue Augmentin Continue pain regimen Benadryl as needed Working toward [facility] [place]. Plan is Thursday. YOLIS WYMAN DO 08/15/21 0604: Subjective Subjective/Events-last exam Does not engage in conversation Objective Exam General Appearance: No Apparent Distress, WD/WN, Chronically ill Assessment/Plan Assessment and Plan Assess & Plan/Chief Complaint Supportive care Supervisory-Addendum Brief Verification & Attestation Participated in pt care: history, MDM, physical Personally performed: exam, history, MDM, supervision of care Care discussed with: Medical Student Procedures: n/a Results interpretation: Verified all documentation Verification and Attestation of Medical Student E/M Service A medical student performed and documented this service in my presence. I reviewed and verified all information documented by the medical student and made modifications to such information, when appropriate. I personally performed the physical exam and medical decision making. Yolis Wyman, Aug 15, 2021,06:04 TORRI HOWARD Aug 14, 2021 11:06 YOLIS WYMAN DO Aug 15, 2021 06:04
[2021-08-14] MEDS: fentaNYL INJ 100 MCG/2 ML AMP IVP PRN (14:45)
[2021-08-14] MEDS: RIVAROXABAN 20 MG TABLET (XARELTO) PO SCH (17:40)
[2021-08-14] MEDS: ROSUVASTATIN 20 MG (CRESTOR) TABLET PO SCH (19:20)
[2021-08-14] MEDS: FAMOTIDINE 20 MG (PEPCID) TABLET PO SCH (19:20)
[2021-08-14] MEDS: traZODone 50 MG (DESYREL) TAB PO SCH (19:20)
[2021-08-15] MEDS: CATHETER FLUSH 10 ML SYR IV SCH ×3 (06:02→22:53)
[2021-08-15] MEDS: inSUlin ASPART (NovoLOG) 1 UNIT/0.01 ML (CHARGE PER UNIT) SC SCH ×4 (06:29→20:19)
[2021-08-15 07:30] LABS: POTASSIUM 3.9 MMOL/L (3.6-5.0)
[2021-08-15 07:31] LABS: CALCIUM 8.8 MG/DL (8.5-10.1)
[2021-08-15] MEDS: KCL 20 MEQ TAB (K-DUR) PO SCH (07:31)
[2021-08-15] MEDS: POTASSIUM CL 10MEQ/50ML IVPB 50 ML IV SCH (07:31)
[2021-08-15 07:36] LABS: CREATININE SERUM 1.14 MG/DL (0.60-1.30)
[2021-08-15 07:38] LABS: MAGNESIUM 1.8 MG/DL (1.6-2.4)
[2021-08-15] MEDS: MAGNESIUM 1 GM/100 ML IVPB 100 ML IV SCH (08:43)
[2021-08-15] MEDS: dilTIAZem120 MG (CARDIZEM CD) CAP PO SCH (09:28)
[2021-08-15] MEDS: CLOPIDOGREL 75 MG (PLAVIX) TABLET PO SCH (09:28)
[2021-08-15] MEDS: lisINopril 5 MG (PRINIVIL) TABLET PO SCH (09:36)
--- NOTE | 2021-08-15 11:29 | Progress Note - Hospitalist ---
Subjective HPI/CC On Admission Date Seen by Provider: Aug 15, 2021 Time Seen by Provider: 09:55 Subjective/Events-last exam He was sleeping upon my arrival. He denies any complaints or concerns. He denies pain. He is just sleepy. Objective Exam Vital Signs Vital Signs Date Time Temp Pulse Resp B/P (MAP) Pulse Ox O2 Delivery O2 Flow Rate FiO2 08/15/21 10:16 Room Air 08/15/21 09:36 100/60 08/15/21 07:37 36.7 76 16 97 Capillary Refill : Less Than 3 Seconds General Appearance: No Apparent Distress, Chronically ill Respiratory: Lungs Clear, Normal Breath Sounds, No Respiratory Distress Cardiovascular: Regular Rate, Rhythm, No Murmur Gastrointestinal: Normal Bowel Sounds, Soft Extremity: Non Tender, Pedal Edema Neurologic/Psychiatric: Alert, Depressed Affect Skin: Warm/Dry, Other (gangrenous left second toe) Results/Procedures Lab Laboratory Tests 08/15/21 05:50 Patient resulted labs reviewed. Assessment/Plan Assessment and Plan Assess & Plan/Chief Complaint PAD Gangrenous toe AFib Anemia T2DM Chronic kidney disease stage III Obesity Palliative care following Completed Augmentin Continue pain regimen Discharge planned to [facility] tomorrow Hyperkalemia, resolved Lactic acidosis, resolved Septic shock, resolved Cellulitis, resolved AFib with RVR, resolved NSTEMI, resolved Diagnosis/Problems Diagnosis/Problems (1) Cellulitis of left foot Status: Resolved Resolution Date/Time: 08/15/21 @ 11:29 (2) Atrial fibrillation with RVR Status: Resolved Resolution Date/Time: 08/15/21 @ 11:29 (3) NSTEMI (non-ST elevation myocardial infarction) Status: Resolved Resolution Date/Time: 08/15/21 @ 11:29 (4) Septic shock Status: Resolved Resolution Date/Time: 08/07/21 @ 11:56 (5) Lactic acidosis Status: Resolved Resolution Date/Time: 08/07/21 @ 11:56 (6) Acute kidney injury superimposed on chronic kidney disease Status: Resolved Resolution Date/Time: 08/07/21 @ 11:56 (7) T2DM (type 2 diabetes mellitus) Status: Chronic Qualifiers: Diabetes mellitus half-way insulin use: with half-way use Diabetes mellitus complication status: with circulatory complication Diabetes mellitus complication detail: with peripheral angiopathy with gangrene Qualified Codes: E11.52 - Type 2 diabetes mellitus with diabetic peripheral angiopathy with gangrene; Z79.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
[2021-08-15] MEDS: RIVAROXABAN 20 MG TABLET (XARELTO) PO SCH (18:02)
[2021-08-15] MEDS: traZODone 50 MG (DESYREL) TAB PO SCH (20:00)
[2021-08-15] MEDS: ROSUVASTATIN 20 MG (CRESTOR) TABLET PO SCH (20:55)
[2021-08-15] MEDS: FAMOTIDINE 20 MG (PEPCID) TABLET PO SCH (20:55)
[2021-08-15] MEDS: diphenhydrAMINE 25 MG TAB (BENADRYL) PO PRN (22:53)
[2021-08-16] MEDS: inSUlin ASPART (NovoLOG) 1 UNIT/0.01 ML (CHARGE PER UNIT) SC SCH (06:38)
[2021-08-16] MEDS: CATHETER FLUSH 10 ML SYR IV SCH (06:38)
[2021-08-16] MEDS: KCL 20 MEQ TAB (K-DUR) PO SCH (06:41)
[2021-08-16] MEDS: POTASSIUM CL 10MEQ/50ML IVPB 50 ML IV SCH (06:42)
[2021-08-16] MEDS: MAGNESIUM 1 GM/100 ML IVPB 100 ML IV SCH (06:44)
[2021-08-16] MEDS: CLOPIDOGREL 75 MG (PLAVIX) TABLET PO SCH (08:25)
[2021-08-16] MEDS: dilTIAZem120 MG (CARDIZEM CD) CAP PO SCH (08:25)
[2021-08-16] MEDS: lisINopril 5 MG (PRINIVIL) TABLET PO SCH (10:27)
--- NOTE | 2021-08-16 11:33 | Discharge Summary ---
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 (8) PAD (peripheral artery disease) Status: Acute (9) Gangrenous toe Status: Acute (10) Hyperkalemia Status: Resolved (11) CKD (chronic kidney disease) stage 3, GFR 30-59 ml/min Status: Chronic Qualifiers: Qualified Codes: N18.31 - Chronic kidney disease, stage 3a Hospital Course Date of Admission: Aug 05, 2021 at 14:42 Admission Diagnosis: AFib with RVR Family Physician/Provider: [facility] Physician Date of Discharge: 08/16/21 Discharge Diagnosis: AFib with RVR, NSTEMI, PAD, gangrenous toe, cellulitis Hospital Course: Bill Chong is a 70 year old male with PMH HTN, T2DM, HLD, GERD, AFib, hypothyroidism, CAD, PAD, who was admitted with AFib with RVR. He was treated with IV Cardizem and improved. He also had NSTEMI thought to be type II. His course was complicated by severe peripheral artery disease not amenable to intervention. He has gangrene of his left second toe. He refused transfer for amputation. His course was complicated by cellulitis for which he received a course of antibiotics. He also had septic shock with significant lactic acidosis which responded to fluids and antibiotics. He chose to pursue hospice and was discharged to [facility] in [place], [place] with [facility]. Labs and Pending Lab Test: Laboratory Tests 08/15/21 15:18: Glucometer 143H 08/15/21 20:11: Glucometer 164H 08/16/21 06:37: Glucometer 144H Microbiology 08/05/21 Blood Culture - Final, Complete No growth 08/05/21 MRSA Screen - Final, Complete MRSA not isolated Home Meds Active Banophen (Diphenhydramine HCl) 25 Mg Tablet 25 Mg PO Q6H PRN 30 Days Oxyir Tablet (Oxycodone HCl) 5 Mg Tab 5-10 Mg PO Q4H PRN Diltiazem 24Hr ER (Diltiazem HCl) 120 Mg Cap.er.24h 120 Mg PO DAILY@0900 90 Days Reported Levothyroxine Sodium 150 Mcg Tablet 150 Mcg PO DAILY LAST FILLED 04-15-2021 #90/90 DAY SUPPLY Neurontin (Gabapentin) 300 Mg Capsule 600 Mg PO TID TAKES 2 (300MG) CAPS Lantus (Insulin Glargine,Hum.rec.anlog) 100 Unit/1 Ml Vial 45 Unit SQ HS Tizanidine HCl 4 Mg Tablet 4 Mg PO TID PRN Promethazine Tablet (Promethazine HCl) 25 Mg Tablet 25 Mg PO Q6H PRN Vitamin D3 (Cholecalciferol (Vitamin D3)) 250 Mcg Tablet 1,000 Units PO DAILY Lisinopril 5 Mg Tablet 5 Mg PO DAILY Famotidine 40 Mg Tablet 40 Mg PO HS Metoprolol Succinate 50 Mg Tab.er.24h 25 Mg PO DAILY Crestor (Rosuvastatin Calcium) 40 Mg Tablet 20 Mg PO HS TAKES 1/2 (40MG) TABLET Xarelto Tablet (Rivaroxaban) 20 Mg Tablet 20 Mg PO 1700 Trazodone HCl 50 Mg Tablet 50 Mg PO HS LAST FILLED 03-19-2021 #90/90 DAY SUPPLY Ferrous Sulfate 324 Mg Tablet.dr 324 Mg PO DAILY Plavix (Clopidogrel Bisulfate) 75 Mg Tablet 75 Mg PO DAILY Lantus (Insulin Glargine,Hum.rec.anlog) 100 Unit/1 Ml Vial 40 Unit SC DAILY Novolog (Insulin Aspart) 100 Unit/1 Ml Susp 15 Units SQ AC Assessment/Pt Instructions You are being discharged on hospice. Please contact your hospice agency with any needs. Discharge Planning: <30 minutes discharge planning Discharge Instructions Discharge Diet: No Restrictions Activity as Tolerated: Yes Discharge Physical Examination Vital Signs Vital Signs Date Time Temp Pulse Resp B/P (MAP) Pulse Ox O2 Delivery O2 Flow Rate FiO2 08/16/21 08:25 Room Air 08/16/21 08:00 36.0 83 18 148/66 98 General Appearance: No Apparent Distress, Chronically ill Respiratory: Lungs Clear, Normal Breath Sounds, No Respiratory Distress Cardiovascular: No Murmur, Irregularly Irregular Gastrointestinal: Normal Bowel Sounds, Soft Extremity: No Normal Capillary Refill; Pedal Edema, Other (left second toe gangrenous) Skin: Cool, Other (gangrenous toe) Neurologic/Psychiatric: Alert, Depressed Affect Allergies: Coded Allergies: hydromorphone (Verified Allergy, Intermediate, 08/08/21) Pt "went crazy" on this med morphine (Verified Allergy, Intermediate, SEVERE ITCHING, 08/15/15) peach (Unverified Allergy, Unknown, 08/14/15) Uncoded Allergies: contrex (Allergy, Unknown, 08/14/15) Discharge Summary Date of Admission Aug 05, 2021 at 14:42 Date of Discharge Discharge Date: Aug 12, 2021 Discharge Time: 11:32 Admission Diagnosis Atrial fibrillation with rapid ventricular response Discharge Diagnosis PAD Gangrenous toe AFib Anemia T2DM Chronic kidney disease stage III Obesity Hyperkalemia Lactic acidosis Septic shock Cellulitis AFib with RVR NSTEMI (1) Cellulitis of left foot Status: Resolved (2) Atrial fibrillation with RVR Status: Resolved (3) NSTEMI (non-ST elevation myocardial infarction) Status: Resolved (4) Septic shock Status: Resolved (5) Lactic acidosis Status: Resolved (6) Acute kidney injury superimposed on chronic kidney disease Status: Resolved (7) T2DM (type 2 diabetes mellitus) Status: Chronic Qualifiers: Qualified Codes: E11.52 - Type 2 diabetes mellitus with diabetic peripheral angiopathy with gangrene; 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
== END 2021-08-16 11:40 | DRG 280 ==
LOC: EDUNIT# 13:34 → ER 13:36 → ICU 14:42 → 4TH 08-08 18:08
PROVIDERS: ADMIT Internal Medicine; ATTEND Internal Medicine
PROC: 5A09457 Assistance with Respiratory Ventilation, 24-96 Consecutive Hours, Continuous Positive Airway Pressure (ICD-10-PCS; principal; 2021-08-06)
DX: I48.0 Paroxysmal atrial fibrillation (principal); I21.A1 Myocardial infarction type 2; R65.21 Severe sepsis with septic shock; A41.9 Sepsis, unspecified organism; N17.9 Acute kidney failure, unspecified; E11.52 Type 2 diabetes mellitus with diabetic peripheral angiopathy with gangrene; I96 Gangrene, not elsewhere classified; L03.116 Cellulitis of left lower limb; D63.1 Anemia in chronic kidney disease; E78.5 Hyperlipidemia, unspecified; N18.31 Chronic kidney disease, stage 3a; E66.9 Obesity, unspecified; E87.5 Hyperkalemia; K21.9 Gastro-esophageal reflux disease without esophagitis; E03.9 Hypothyroidism, unspecified; J43.9 Emphysema, unspecified; F32.A Depression, unspecified; I12.9 Hypertensive chronic kidney disease with stage 1 through stage 4 chronic kidney disease, or unspecified chronic kidney disease; E11.22 Type 2 diabetes mellitus with diabetic chronic kidney disease; G47.33 Obstructive sleep apnea (adult) (pediatric); M19.90 Unspecified osteoarthritis, unspecified site; Z95.5 Presence of coronary angioplasty implant and graft; Z88.5 Allergy status to narcotic agent; Z87.891 Personal history of nicotine dependence; Z79.4 Long term (current) use of insulin; Z68.28 Body mass index [BMI] 28.0-28.9, adult; Z95.1 Presence of aortocoronary bypass graft; Z79.01 Long term (current) use of anticoagulants
CPT/HCPCS: 36415; 71045; 73630; 80048; 80053; 80061; 82274; 82805; 82947; 83605; 83735; 83874; 84100; 84132; 84145; 84484; 85014; 85018; 85025; 85610; 85652; 85730; 86141; 86850; 86900; 86901; 86920; 87040; 87081; 87636; 93005; 93041; 93926; 94640; 94660; 94760; 96361; 96374; 96375; 99291